=== PATIENT | female | born 1960 | race Caucasian/White ===

== ENCOUNTER → 2020-10-25 15:30 | Outpatient (CLI) | payer OTHER, SELFPAY ==
--- NOTE | ~2020-10-25 | MM_ITS ---
EXAMINATION: MM screening jason BI w judd HISTORY: Screening mammogram TECHNIQUE: Craniocaudal and mediolateral oblique 3-D tomosynthesis images were obtained and synthetic 2-D images were generated. CAD analysis was submitted and interpreted. COMPARISON: No prior mammogram is available for comparison at this institution. BREAST PARENCHYMAL COMPOSITION: There are scattered areas of fibroglandular density. FINDINGS: There is a small circumscribed benign-appearing axillary tail lymph node on the left. There is no evidence of suspicious mass, calcification, or architectural distortion to suggest malignancy in either breast. There has been no suspicious interval change. IMPRESSION: 1. No mammographic evidence of malignancy. 2. Recommend routine screening mammography in one year. BI-RADS Category 2: Benign finding(s). Reviewed, dictated and finalized at location A.
== END ==
PROVIDERS: Visit Provider Physician Assistant Medical
DX: Z12.31 Encounter for screening mammogram for malignant neoplasm of breast (principal)
CPT/HCPCS: 77063; 77067

== ENCOUNTER → 2020-11-17 13:28 | Outpatient (CLI) | payer OTHER, SELFPAY ==
--- NOTE | ~2020-11-17 | DEXA_ITS ---
Bone Density Report Name: Dafne Carter Age: 59 Sex: Female Ethnicity: White Date of : 1960 Indication: postmenopausal; screening for osteoporosis; hysterectomy; Referring Provider: Salvador Huerta Study: Bone densitometry was performed. Exam Date: November 17, 2020 Accession number: [id number] Bone Density: Region BMD T-score Z-score Classification AP Spine (L1-L4) 1.096 0.4 1.9 Normal Femoral Neck (Left) 0.761 -0.8 0.5 Normal Total Hip (Left) 0.973 0.3 1.3 Normal Femoral Neck (Right) 0.785 -0.6 0.7 Normal Total Hip (Right) 0.968 0.2 1.2 Normal Total Hip Mean 0.971 0.3 1.3 Normal World Health Organization criteria for BMD impression classify patients as: Normal (T-score at or above -1.0), Osteopenia (T-score between -1.0 and -2.5), or Osteoporosis (T-score at or below -2.5). 10-year Fracture Risk: FRAX not reported because: All T-scores for Spine Total, Hip Total, Femoral Neck at or above -1.0 Clinical Information Provided by Patient: Has used the following medications: Vitamin D, Calcium, mtv Has the following medical conditions: Hysterectomy Patient maximum height was 62.5 Menopause Age: 53 No regular weight bearing exercise Drinks caffeinated beverages Onset of menses at age 10 Number of children 1 Impression: The patient has normal bone mass. Discussion: BONE DENSITY IS ABOVE THE MINIMUM DESIRABLE LEVEL AT ALL SKELETAL SITES TESTED. This patient?s bone mineral density is above the minimum desirable level (T-score -1.0 or better) at all sites measured. The patient should follow a healthful lifestyle (good nutrition with adequate calcium and vitamin D, and appropriate weight-bearing exercise). Follow-Up: Consider repeating this study in 5 years or sooner if there is some new clinical indication. Reported by: [facility] on 11/17/2020 2:06:00 PM. Reviewed, dictated and finalized at location ACorinna BOWMAN
== END ==
PROVIDERS: PCP Family Medicine; Visit Provider Physician Assistant Medical
DX: Z78.0 Asymptomatic menopausal state (principal)
CPT/HCPCS: 77080

== ENCOUNTER 2020-12-24 01:48 | Day surgery (SDC) | payer OTHER, SELFPAY ==
[2020-12-17 16:29] VITALS: BMI 36.4
[2020-12-24 08:06] VITALS: BP 145/79; PULSE 83; RESP 20; TEMP 36.1; O2SAT 98; BMI 36.1
[2020-12-24] MEDS: LACTATED RINGERS 1,000 ML 150 ML IV CONT (08:17)
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
[2020-12-24 09:07] VITALS: BP 106/71; PULSE 78; RESP 17; O2SAT 98
[2020-12-24 09:17] VITALS: BP 117/74; PULSE 68; RESP 15; O2SAT 98
[2020-12-24 09:27] VITALS: BP 117/71; PULSE 69; RESP 15; O2SAT 99
== END 2020-12-24 09:38 | disposition home or self-care (01) ==
PROVIDERS: PCP Family Medicine; Visit Provider Internal Medicine Gastroenterology
PROC: 0DJD8ZZ Inspection of Lower Intestinal Tract, Via Natural or Artificial Opening Endoscopic (ICD-10-PCS; CPT 45378; principal; 2020-12-24 09:00)
DX: Z12.11 Encounter for screening for malignant neoplasm of colon (principal); D12.2 Benign neoplasm of ascending colon; K57.30 Diverticulosis of large intestine without perforation or abscess without bleeding; K64.8 Other hemorrhoids; G47.33 Obstructive sleep apnea (adult) (pediatric); Z98.84 Bariatric surgery status; E66.9 Obesity, unspecified; Z68.36 Body mass index [BMI] 36.0-36.9, adult
CPT/HCPCS: 45380; 88305; J2704; J7120

== ENCOUNTER → 2021-05-09 10:12 | Outpatient (CLI) | payer OTHER, SELFPAY ==
--- NOTE | ~2021-05-09 | XR_ITS ---
EXAMINATION: XR knee RT min 4V DATE: 05/09/2021 11:00 INDICATION: Right knee pain. TECHNIQUE: 4 views of right knee including standing views were obtained. COMPARISON: None. FINDINGS: Bone alignment is normal. No fracture. There is moderate osteoarthritis of medial compartme nt and mild osteoarthritis of lateral and patellofemoral compartments. No knee joint effusion. IMPRESSION: 1. Moderate right knee osteoarthritis. Reviewed, dictated and finalized at location A. 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
--- NOTE | ~2021-05-09 | XR_ITS ---
EXAMINATION: XR knee LT min 4V DATE: 05/09/2021 11:00 INDICATION: Left knee pain. TECHNIQUE: 4 views of left knee including standing views were obtained. COMPARISON: None. FINDINGS: Bone alignment is normal. No fracture. There is moderate osteoarthritis of medial compartme nt and mild osteoarthritis of lateral and patellofemoral compartments. There is a small knee joint ef fusion. IMPRESSION: 1. Moderate left knee osteoarthritis. 2. Small left knee joint effusion. Reviewed, dictated and finalized at location A. 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
== END ==
PROVIDERS: PCP Family Medicine; Visit Provider Family Medicine
DX: M17.0 Bilateral primary osteoarthritis of knee (principal); M25.462 Effusion, left knee
CPT/HCPCS: 73564

== ENCOUNTER → 2021-12-21 13:15 | Outpatient (CLI) | payer OTHER, SELFPAY ==
--- NOTE | ~2021-12-21 | MM_ITS ---
EXAMINATION: MM screening jason BI w judd HISTORY: Screening TECHNIQUE: Craniocaudal and mediolateral oblique 3-D tomosynthesis images were obtained and synthetic 2-D images were generated. CAD analysis was submitted and interpreted. COMPARISON: 10/25/2020 BREAST PARENCHYMAL COMPOSITION: There are scattered areas of fibroglandular density. FINDINGS: There is no evidence of suspicious mass, calcification, or architectural distortion to sugg est malignancy in either breast. There has been no suspicious interval change. IMPRESSION: 1. No mammographic evidence of malignancy. 2. Recommend routine screening mammography in one year. BI-RADS Category 1: Negative Reviewed, dictated and finalized at location A.
== END ==
PROVIDERS: PCP Family Medicine; Visit Provider Family Medicine
DX: Z12.31 Encounter for screening mammogram for malignant neoplasm of breast (principal)
CPT/HCPCS: 77063; 77067

== ENCOUNTER 2022-09-08 08:54 | Outpatient (CLI) | payer OTHER, SELFPAY ==
[2022-09-11 07:49] LABS: Kit Draw Collected
== END 2022-09-08 08:55 | disposition home or self-care (01) ==
LOC: ANHGOSHLAB 08:55
PROVIDERS: PCP Family Medicine; Visit Provider Family Medicine
DX: Z00.00 Encounter for general adult medical examination without abnormal findings (principal); R53.83 Other fatigue; Z98.84 Bariatric surgery status
CPT/HCPCS: 36415

== ENCOUNTER → 2022-09-08 10:08 | Outpatient (CLI) | payer OTHER, SELFPAY ==
--- NOTE | ~2022-09-08 | XR_ITS ---
EXAMINATION: XR hand RT min 3V DATE: 09/08/2022 10:25 INDICATION: Pain at the right first metacarpal 3 months post fall TECHNIQUE: Posteroanterior, oblique and lateral views of the right hand were obtained. COMPARISON: None. FINDINGS: Bone alignment is normal. No fracture. Polyarticular osteoarthritis, moderate at the first carpometac arpal joint and mild at multiple interphalangeal joints with distal predominance. No erosions to sugg est inflammatory arthritis. Soft tissues are unremarkable. IMPRESSION: 1. Polyarticular osteoarthritis, moderate at the first carpometacarpal joint and mild at multiple int erphalangeal joints. Reviewed, dictated and finalized at location A. IMPRESSION: 1. Polyarticular osteoarthritis, moderate at the first carpometacarpal joint an d mild at multiple interphalangeal joints.
--- NOTE | ~2022-09-08 | XR_ITS ---
EXAMINATION: XR knee LT 3V DATE: 09/08/2022 10:25 INDICATION: Anterior left knee pain. Fall. TECHNIQUE: 3 views of left knee including standing views were obtained. COMPARISON: Left knee radiographs 05/09/2021 FINDINGS: Bone alignment is normal. No fracture. There is moderate osteoarthritis of medial compartme nt and mild osteoarthritis of lateral and patellofemoral compartments. There is an enthesophyte at th e proximal attachment of medial collateral ligament. No knee joint effusion. IMPRESSION: 1. Moderate left knee osteoarthritis. Reviewed, dictated and finalized at location A.
== END ==
PROVIDERS: PCP Family Medicine; Visit Provider Physician Assistant
DX: M17.12 Unilateral primary osteoarthritis, left knee (principal); M19.041 Primary osteoarthritis, right hand
CPT/HCPCS: 73130; 73562

== ENCOUNTER 2023-02-08 13:48 | Outpatient (CLI) | payer OTHER, SELFPAY ==
[2023-02-08 20:26] LABS: Hepatitis C Virus Antibody Negative (Negative)
[2023-02-09 03:19] LABS: Vitamin D 25 Hydroxy 40.1 ng/mL
== END 2023-02-08 13:49 | disposition home or self-care (01) ==
PROVIDERS: PCP Family Medicine; Visit Provider Family Medicine
DX: E55.9 Vitamin D deficiency, unspecified (principal); Z11.59 Encounter for screening for other viral diseases; Z98.84 Bariatric surgery status
CPT/HCPCS: 36415; 82306; 82607; 82728; 86803

== ENCOUNTER → 2023-04-19 13:39 | Outpatient (CLI) | payer OTHER, SELFPAY ==
--- NOTE | ~2023-04-19 | MM_ITS ---
EXAMINATION: MM screening [facility] BI w judd HISTORY: Screening mammogram TECHNIQUE: Craniocaudal and mediolateral oblique 3-D tomosynthesis images were obtained and synthetic 2-D images were generated. CAD analysis was submitted and interpreted. COMPARISON: 12/21/2021, 10/25/2020 BREAST PARENCHYMAL COMPOSITION: There are scattered areas of fibroglandular density. FINDINGS: No suspicious mass, calcification, or architectural distortion are identified in either allie ast to suggest malignancy. There has been no suspicious interval change. IMPRESSION: 1. No mammographic evidence of malignancy. 2. Recommend routine screening mammography in one year. BI-RADS Category 1: Negative Reviewed, dictated and finalized at location A. OGIST
== END ==
PROVIDERS: PCP Family Medicine; Visit Provider Family Medicine
DX: Z12.31 Encounter for screening mammogram for malignant neoplasm of breast (principal)
CPT/HCPCS: 77063; 77067

== ENCOUNTER 2023-07-09 10:22 | Outpatient (CLI) | payer OTHER, SELFPAY ==
--- NOTE | ~2023-07-09 | XR_ITS ---
XR hip LT 2V w AP pelvis DATE: 07/09/2023 10:57 INDICATION: Chronic left hip pain. Fell onto right knee last evening. TECHNIQUE: AP pelvis. AP and lateral views of left hip. COMPARISON: None FINDINGS: No pelvic fracture or bone destruction is detected. The pubic symphysis and sacroiliac join ts are intact. No pelvic fracture or bone destruction. Hip joint spaces appear symmetric and relative ly preserved. No fracture, dislocation, avascular necrosis or bone destruction of the left hip. IMPRESSION: No significant abnormality Reviewed, dictated and finalized at location B. 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
--- NOTE | ~2023-07-09 | XR_ITS ---
EXAM: XR knee RT 3V DATE: 07/09/2023 10:58 HISTORY: fell onto Rt knee last P.M;pain/bruising/swelling anteriorly . COMPARISON: 05/09/2021. FINDINGS: Decreased mineralization. No fracture or dislocation. No lytic or blastic lesion. Tricompa rtmental osteoarthritis, moderate in the medial compartment. Small volume joint fluid. No erosion or periosteal change. Anterior soft tissue swelling. IMPRESSION: No acute osseous finding in the right knee. Reviewed, dictated and finalized at location K. NER
== END 2023-07-09 10:23 ==
PROVIDERS: PCP Physician Assistant; Visit Provider Physician Assistant
DX: M25.552 Pain in left hip (principal); M25.561 Pain in right knee
CPT/HCPCS: 73502; 73562

== ENCOUNTER 2024-01-31 09:00 | Outpatient (CLI) | payer OTHER, SELFPAY ==
[2024-01-31 13:31] LABS: Hepatitis C Virus Antibody Negative (Negative)
[2024-01-31 13:33] LABS: Alanine Aminotransferase 32 U/L (6-35); Albumin Level 4.1 g/dL (3.5-5.1); Anion Gap 8 mmol/L (4-12); Aspartate Amino Transferase 48 U/L (14-36); Bilirubin,Total 0.6 mg/dL (0.2-1.3); Blood Urea Nitrogen 11 mg/dL (7-17); Calcium 9.3 mg/dL (8.4-10.2); Carbon Dioxide 29 mmol/L (22-30); Chloride 102 mmol/L (98-107); Estimated Glomerular Filt Rate > 60; Glucose 83 mg/dL (65-110); Potassium 4.2 mmol/L (3.4-5.0); Sodium 139 mmol/L (137-145); Triglycerides 88 mg/dL (<150)
[2024-01-31 13:34] LABS: Alkaline Phosphatase 102 U/L (38-126); Cholesterol 172 mg/dL (0-200); HDL Direct 63 mg/dL
[2024-01-31 13:45] LABS: LDL Cholesterol Direct 89 mg/dL
[2024-01-31 14:11] LABS: Hemoglobin A1C 5.4 % (<5.7)
== END 2024-01-31 09:01 | disposition home or self-care (01) ==
LOC: ANHGOSHLAB 09:02
PROVIDERS: PCP Family Medicine; Visit Provider Family Medicine
DX: E03.9 Hypothyroidism, unspecified (principal); E55.9 Vitamin D deficiency, unspecified; Z68.36 Body mass index [BMI] 36.0-36.9, adult; Z98.84 Bariatric surgery status; Z11.59 Encounter for screening for other viral diseases
CPT/HCPCS: 36415; 80053; 80061; 82306; 82607; 82728; 83036; 84443; 86803

== ENCOUNTER 2024-02-11 08:32 | Outpatient (CLI) | payer OTHER, SELFPAY ==
[2024-02-11 15:17] LABS: Basophils Absolute Auto 0.1 K/mm3 (0.0-0.1); Basophils Percent Auto 0.7 % (0.2-1.2); Eosinophils Absolute Auto 0.2 K/mm3 (0-0.3); Eosinophils Percent Auto 2.6 % (0-4.4); Hematocrit 42.6 % (37.0-47.0); Hemoglobin 13.4 g/dL (12.0-15.0); Immature Granulocyte Absolute 0.02 K/mm3 (0.00-0.031); Immature Granulocyte Percent A 0.3 % (0-0.5); Lymphocytes Absolute Auto 1.92 K/mm3 (0.9-3.2); Lymphocytes Percent Auto 28.2 % (18.3-44.2); Mean Corpuscular HGB Conc 31.5 g/dl (32-36); Mean Corpuscular Volume 95.3 fl (80-100); Mean Platelet Volume 10.4 fl (7.4-10.4); Monocytes Absolute Auto 0.6 K/mm3 (0.1-0.6); Monocytes Percent Auto 8.8 % (2.6-8.5); Neutrophils Percent Auto 59.4 % (45.5-73.1); Platelet Count Result 324 k/mm3 (150-375); Red Blood Count 4.47 M/mm3 (4.2-5.4); Red Cell Distribution Width 14.1 % (11.5-14.5); White Blood Count 6.8 K/mm3 (4.5-10.0)
== END 2024-02-11 08:33 | disposition home or self-care (01) ==
LOC: ANHGOSHLAB 08:33
PROVIDERS: PCP Family Medicine; Visit Provider Family Medicine
DX: R79.0 Abnormal level of blood mineral (principal)
CPT/HCPCS: 36415; 85025

== ENCOUNTER 2024-02-27 10:58 | Outpatient (CLI) | payer OTHER, SELFPAY | END 2024-02-27 10:59 | disposition home or self-care (01) | LOC: ANHAUDASC 11:00 | PROVIDERS: PCP Family Medicine; Visit Provider Family Medicine | DX: H90.3 Sensorineural hearing loss, bilateral (principal); H93.13 Tinnitus, bilateral | CPT/HCPCS: 92557; 92567 ==

== ENCOUNTER 2024-04-21 10:15 | Outpatient (CLI) | payer OTHER, SELFPAY ==
--- NOTE | ~2024-04-21 | MM_ITS ---
EXAMINATION: MM screening [facility] BI w judd HISTORY: Screening mammogram TECHNIQUE: Craniocaudal and mediolateral oblique 3-D tomosynthesis images were obtained and synthetic 2-D images were generated. CAD analysis was submitted and interpreted. COMPARISON: 04/19/2023, 12/21/2021, 10/25/2020 BREAST PARENCHYMAL COMPOSITION:Not Dense. There are scattered areas of fibroglandular density. FINDINGS: No suspicious mass, calcification, or architectural distortion are identified in either allie ast to suggest malignancy. There has been no suspicious interval change. IMPRESSION: No mammographic evidence of malignancy. Recommend routine screening mammography in one year. BI-RADS Category 1: Negative Reviewed, dictated and finalized at location . 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
== END 2024-04-21 10:16 | disposition home or self-care (01) ==
LOC: MICIMG 10:16
PROVIDERS: PCP Family Medicine; Visit Provider Family Medicine
DX: Z12.31 Encounter for screening mammogram for malignant neoplasm of breast (principal)
CPT/HCPCS: 77063; 77067

== ENCOUNTER 2024-07-31 08:34 | Outpatient (CLI) | payer OTHER, SELFPAY ==
[2024-07-31 15:05] LABS: Basophils Absolute Auto 0.1 K/mm3 (0.0-0.1); Basophils Percent Auto 0.9 % (0.2-1.2); Eosinophils Absolute Auto 0.2 K/mm3 (0-0.3); Eosinophils Percent Auto 2.3 % (0-4.4); Hematocrit 43.8 % (37.0-47.0); Hemoglobin 14.1 g/dL (12.0-15.0); Immature Granulocyte Absolute 0.02 K/mm3 (0.00-0.031); Immature Granulocyte Percent A 0.3 % (0-0.5); Lymphocytes Absolute Auto 2.27 K/mm3 (0.9-3.2); Lymphocytes Percent Auto 34.2 % (18.3-44.2); Mean Corpuscular HGB Conc 32.2 g/dl (32-36); Mean Corpuscular Hemoglobin 30.5 pg (26-34); Mean Corpuscular Volume 94.6 fl (80-100); Mean Platelet Volume 10.5 fl (7.4-10.4); Monocytes Absolute Auto 0.6 K/mm3 (0.1-0.6); Monocytes Percent Auto 8.3 % (2.6-8.5); Neutrophils Absolute Auto 3.6 K/mm3 (1.3-6.7); Platelet Count Result 303 k/mm3 (150-375); Red Blood Count 4.63 M/mm3 (4.2-5.4); Red Cell Distribution Width 13.3 % (11.5-14.5); White Blood Count 6.6 K/mm3 (4.5-10.0)
[2024-07-31 19:14] LABS: Alanine Aminotransferase 34 U/L (6-35); Albumin Level 4.2 g/dL (3.5-5.1); Alkaline Phosphatase 92 U/L (38-126); Anion Gap 9 mmol/L (4-12); Aspartate Amino Transferase 55 U/L (14-36); Bilirubin,Total 0.6 mg/dL (0.2-1.3); Blood Urea Nitrogen 11 mg/dL (7-17); Calcium 9.6 mg/dL (8.4-10.2); Carbon Dioxide 29 mmol/L (22-30); Chloride 104 mmol/L (98-107); Cholesterol 116 mg/dL (0-200); Estimated Glomerular Filt Rate > 60; Glucose 66 mg/dL (65-110); HDL Direct 58 mg/dL; Potassium 5.3 mmol/L (3.4-5.0); Sodium 142 mmol/L (137-145); Triglycerides 64 mg/dL (<150)
[2024-07-31 19:25] LABS: LDL Cholesterol Direct 38 mg/dL
[2024-07-31 22:41] LABS: Vitamin D 25 Hydroxy 37.1 ng/mL
== END 2024-07-31 08:35 | disposition home or self-care (01) ==
LOC: ANHGOSHLAB 08:35
PROVIDERS: PCP Family Medicine; Visit Provider Family Medicine
DX: K76.0 Fatty (change of) liver, not elsewhere classified (principal); K91.2 Postsurgical malabsorption, not elsewhere classified; I10 Essential (primary) hypertension
CPT/HCPCS: 36415; 80053; 80061; 82306; 82607; 82728; 85025

== ENCOUNTER 2024-08-11 09:59 | Outpatient (CLI) | payer OTHER, SELFPAY ==
--- OUTSIDE RECORDS SUMMARY | 2024-08-11 11:41 | XMS_ITS | Continuity of Care Document ---
Author Organization [facility] Address [address] [place] [address] Phone Care Team Providers Care Director Plans Name Role Phone JAYLON DAVE MD Unavailable [...] [facility], [address], [place], [id number], [place] tel:[phone] knee pain equally on both sides (chief complaint) Primary osteoarthriti s of both kneesObesity (BMI 30-39.9) 6 TENZIN IYER. [address] [facility], [address], [place], [place], [id number], [place]. tel:[phone] [facility], [address], [place], [place], [id number], [place] tel:[phone] PHYSICAL THERAPY OFFICE No Information 6 Nell Dykes. [address] [facility], [address], [place], [address], [place]. tel:[phone] Referring Provider: JAYLON Han, [address], [place], [place], . tel:[phone] [facility], [address], [place], , [place] tel:[phone] PHYSICAL THERAPY OFFICE No Information 9-201 6 Camejo DPT Jania. [address], [address], [place], [place], , [place]. tel:[phone] Referring Provider: JAYLON Han, [address], [place], [place], . tel:[phone] [facility], [address], [place], , [place] tel:[phone] PHYSICAL THERAPY OFFICE No Information 2-201 6 Camejo DPT Jania. [address], [address], [place], , [place]. tel:[phone] Referring Provider: JAYLON Han, [address], [place], . tel:[phone] [facility], [address], [place], , [place] tel:[phone] PHYSICAL THERAPY OFFICE No Information -201 6 Camejo DPT Jania. [address], [address], [place], , [place]. tel:[phone] Referring Provider: JAYLON Han, [address], [place], . tel:[phone] [facility], [address], [place], , [place] tel:[phone] PHYSICAL THERAPY OFFICE No Information 1-201 6 Camejo DPT Jania. [address], [address], [place], , [place]. tel:[phone] Referring Provider: JAYLON Han, [address], [place], . tel:[phone] [facility], [address], [place], [place], [id number], [place] tel:[phone] PHYSICAL THERAPY OFFICE No Information 6 Camejo DPT Jania. [address] [facility], [address], [place], , [place]. tel:[phone] Referring Provider: JAYLON Han, [address] [facility] [address], [place], . tel:[phone] [facility], [address], [place], , [place] tel:[phone] PHYSICAL THERAPY OFFICE No Information 6 Camejo DPT Jania. [address] [facility], [address], [place], , [place]. tel:[phone] Referring Provider: JAYLON Han, [address] [facility] [address], [place], . tel:[phone] [facility], [address], [place], [place], [id number], [place] tel:[phone] PHYSICAL THERAPY OFFICE No Information 6 Camejo DPT Jania. [address] [facility], [address], [place], , [place]. tel:[phone] Referring Provider: JAYLON Han, [address] [facility] [address], [place], . tel:[phone] NEW PATIENT OFFICE VISIT- LEVEL 3 [facility], [address], [place], [place], [id number], [place] tel:[phone] [facility] left knee pain (chief complaint) XRAY ORDERPrimary osteoarthriti s of both kneesObesity (BMI 30-39.9) 6 TENZIN IYER. [address] [facility], [address], [place], [place], [id number], [place]. tel:[phone] Referring Provider: JAYLON Han, [address] [facility] [address], [place], [address] . tel:[phone] Family History Family Member Type Diagnosis Age At Onset Mother Problem (finding) depression 20 Father Problem (finding) hypertension 50 Mother Problem (finding) hypertension 50 Mother Problem (finding) Cardiovascular disease 76 Mother Problem (finding) alzheimer's disease 76 Father Problem (finding) cancer of colon 63 Mother Problem (finding) Mental illness 20 Payers Payer name Insurance type Covered republican ID Christos pierce(s) [facility] [id number] Social History Type Description Quantity Date Captured [...] 30-39.9)) ordered Referral Referred To: UMANG BOB [address] [place] [address]
[address] [place], [phone] Ordered: Referrals: UMANG BOB. Evaluate and treat [...] Mental Status Date Cognitive Assessment Orientation - [place] ed to time, place, person, situation. Patient Care Teams Name Effective Dates (start - stop) Status Members No Information
--- OUTSIDE RECORDS SUMMARY | 2024-08-11 11:41 | XMS_ITS | Data Portability ---
Author Organization [facility] [employer] [facility], [facility] Office Address [address] [address] Care Team Providers Care Hydraulic Elevator Constructor Name Role Phone DEMETRIS CHAU Primary Care Provider [phone] JULISA CAVAZOS Bariatric Surgeon [phone] ABBY ESTEVES Anatomic Pathology Manager JULISA CAVAZOS Pattern Painter Assessment No assessment recorded. Plan of Treatment Reminders Order Date Submit Date Provider Last Modified By Organization Details Last Modified Time Details Appointments None recorded. Lab lipid panel, serum 2017 018 [email or web address] Not available 8 08:51:47 CMP, serum or plasma 2017 018 [email or web address] Not available 8 08:59:17 HbA1c (hemoglobin A1c), blood 2017 018 [email or web address] Not available 8 08:51:48 Referral None recorded. Procedures upper endoscopy procedure (EGD) (PROC) 2017 018 [email or web address] Not available 8 08:39:37 Surgeries None recorded. Imaging electrocard iogram 2018 019 [email or web address] In-Office Order, Internal Use Only DO Not Attach Compendium DO Not Attach Compendium, Do Not Delete/merge, [id number] 9 14:06:38 electrocard iogram 2017 018 [email or web address] In-Office Order, Internal Use Only DO Not Attach Compendium DO Not Attach Compendium, Do Not Delete/merge, [id number] 8 15:34:54 electrocard iogram 2017 018 [email or web address] In-Office Order, Internal Use Only DO Not Attach Compendium DO Not Attach Compendium, Do Not Delete/merge, [id number] 8 11:23:58 US, echocardiog surya, transthorac ic, complete, w/ color flow 2017 018 DIANNA In-Office Order, Internal Use Only DO Not Attach Compendium DO Not Attach Compendium, Do Not Delete/merge, [id number] 8 05:01:33 Medication Orders pantoprazol e 40 mg tablet,feli yed release 2017 018 [email or web address] Not available 8 11:28:47 Patient TargetsNo targets recorded. Patient Instructions Encounter Date Encounter Id Patient Instructions Last Modified By Organization Details Last Modified Time 08/10/2017 [id number] When You Want to Lose Weight: Care Instructions jyager Not available 08/10/2017 12:11:23 high cholesterol : care instructions jyager Not available 08/10/2017 12:07:03 sleep apnea: car e instructions jyager Not available 08/10/2017 12:07:03 high blood pressure: care instructions jyager Not available 08/10/2017 12:07:04 learning about high blood pressure jyager Not available 08/10/2017 12:07:04 shortness of breath: care instructions jyager Not available 08/10/2017 12:07:04 08/16/2017 [id number] 1. Continue PPI daily 2. Repeat EGD in 09/2017 to check for resolution of gastric ulcers before proceeding with RYGBP 3. Repeat colonoscopy in 3 yrs esteban Not available 08/16/2017 11:23:00 09/10/2017 [id number] shortness of breath: care instructions jyager Not available 09/10/2017 17:49:50 11/07/2017 [id number] palpitations: care instructions jyager Not available 11/07/2017 11:51:14 When You Want to Lose Weight: Care Instructions jyager Not available 11/07/2017 11:51:14 high cholesterol : care instructions jyager Not available 11/07/2017 11:51:14 sleep apnea: car e instructions jyager Not available 11/07/2017 11:51:14 high blood pressure: care instructions jyager Not available 11/07/2017 11:51:14 learning about high blood pressure jyager Not available 11/07/2017 11:51:14 11/06/2018 [id number] sleep apnea: car e instructions jyager Not available 11/06/2018 11:47:03 When You Want to Lose Weight: Care Instructions jyager Not available 11/06/2018 11:47:03 palpitations: care instructions jyager Not available 11/06/2018 11:47:03 high blood pressure: care instructions jyager Not available 11/06/2018 11:47:03 learning about high blood pressure jyager Not available 11/06/2018 11:47:02 high cholesterol : care instructions jyager Not available 11/06/2018 11:47:03 Reason for Referral None Reported. Results Created Date Observation Date Name Description Value Unit Range Abnormal Flag Note LastModifiedBy Organization Detail LastModifiedTime 07/23/19 18 06/21/2017 imagi ng/di agnos tic resul t No observ ation record ed. [email or web address] Not Available 2017 13:53:14 08/11/19 18 formerly [facility] am No observ ation record ed. In-Office Order Internal Use Only DO Not Attach Compendium DO Not Attach Compendium, Do Not Delete/merge, [id number] 08/10/2017 13:47:50 09/20/19 18 09/13/2017 imagi ng/di agnos tic resul t No observ ation record ed. [email or web address] Not Available 2017 16:18:23 11/08/19 18 formerly [facility] am No observ ation record ed. [email or web address] In-Office Order Internal Use Only DO Not Attach Compendium DO Not Attach Compendium, Do Not Delete/merge, [id number] 11/07/2017 11:54:23 11/08/19 19 11/06/2018 formerly [facility] am No observ ation record ed. [email or web address] In-Office Order Internal Use Only DO Not Attach Compendium DO Not Attach Compendium, Do Not Delete/merge, [id number] 11/07/2018 14:31:29 Result Notes None recorded. Problems Name Problem SNOMED Code Status Onset Date Resolution Date Notes Provider Name and Address Organization Details Recorded Time Body mass index 40+ - severely obese 168350565 Active Alvin seymour, [facility] 6 08:26:38 Vitamin B deficiency 30346864 Active Alvin Lomax null, [facility] 6 08:26:38 Vitamin D deficiency 95636129 Active MD [address], [place], [address], [facility] 6 09:32:47 Cobalamin deficiency 672638759 Active MD [address], [place], [address], [facility] 6 09:32:47 Pre-surger y evaluation Active 2017 Jenae Kwong [facility] 8 11:26:45 Dyspnea 861796404 Active 2017 Kerri White [facility] 8 13:39:05 Screening for malignant neoplasm of colon Active 2013 ENTERED BY: MONA OLMEDO PA-C; SIGNED BY: MONA OLMEDO PA-C Alvin seymour, [facility] 6 08:26:38 Family history of polyp of colon 790072789 Active 2013 ENTERED BY: MONA OLMEDO PA-C; SIGNED BY: MONA OLMEDO PA-C Alvin seymour, [facility] 6 08:26:38 Family history of malignant neoplasm of gastrointe stinal tract 004603164 Active 2013 ENTERED BY: MONA OLMEDO PA-C; SIGNED BY: MONA OLMEDO PA-C Alvin seymour, [facility] 6 08:26:38 Hypertensi ve disorder 14233487 Active MD [address], [place], [address], [facility] 6 09:32:47 Impaired fasting glycemia 999501680 Active MD [address], [place], [address], [facility] 6 09:32:47 Obesity 870637857 Active MD [address], [place], [address], [facility] 6 09:32:47 Knee pain Active Alvin seymour, [facility] 6 08:26:38 Hypertrigl yceridemia 629962383 Active Alvin seymour, [facility] 6 08:26:38 Problem Notes None recorded. Procedures Surgical History Date Name Laterality Status Provider Name and Address Organization Details Recorded Time 11/28/19 18 Gastric bypass for obesity completed Jamee Rojas [facility] 11/06/2018 11:29:18 09/11/19 18 Transthoracic Echocardiogram completed Abby Esteves MD, [facility] [address], [place], [address], [facility] 09/10/2017 17:49:17 05/04/20 15 Date [facility] 14:39:11 09/10/19 15 [facility] 14:39:11 09/03/19 15 Date of [facility] 14:39:11 06/04/18 93 [facility] 09/23/2015 14:39:11 Other completed Maricarmen Winters [facility] 05/08/2017 15:03:19 Imaging Results Imaging Date Name Status LastModified by Organization Details LastModified Time 06/21/2017 imaging/diagnostic result completed [email or web address] Information not available 07/23/2017 13:53:14 08/10/2017 electrocardiogram completed [email or web address] In-Offi ce Order Internal Use Only DO Not Attach Compendium DO Not Attach Compendium, Do Not Delete/merge, [id number] 08/10/2017 13:47:50 09/13/2017 imaging/diagnostic result completed [email or web address] Information not available 09/19/2017 16:18:23 11/07/2017 electrocardiogram completed In-Offi ce Order Internal Use Only DO Not Attach Compendium DO Not Attach Compendium, Do Not Delete/merge, [id number] 11/07/2017 11:54:23 11/06/2018 electrocardiogram completed [email or web address] In-Offi ce Order Internal Use Only DO Not Attach Compendium DO Not Attach Compendium, Do Not Delete/merge, [id number] 11/07/2018 14:31:29 Procedure Notes None recorded. Medical Equipment None Reported. Allergies Allergen ID Allergen Name Allergen Category Reaction Reaction Severity Criticality Documentation Date Start Date Code Code System Note Provider Name and Address Organization Details Recorded Time 20231203 Substance with sulfonami de structure and antibacte rial mechanism of action (substanc e) medicatio n Not available Not available Not available 07/31/20142013 54301 8003 SNOMED SEVER ITY: CRITI VANESSA; Not Available Not Available Not Available 190384 acetamino phen / oxycodone medicatio n itching Not available Not available 09/23/2015 25598 3 RxNorm Not Available Not Available Not Available Medications Name Sig Start Date Stop Date Status Note LastModified by Organization Details LastModified Time carisopro dol 350 mg tablet PRN 2013 active BY: FLAKO CONWAY; SIGNED BY: MONA Dominguez PA-C; GENERIC: CARISOPR ODOL Not Available Not Available Not Available prednison e 10 mg tablet 11/07 completed Not Available Not Available Not Available azithromy arley 250 mg tablet 11/07 completed Not Available Not Available Not Available fluconazo le 150 mg tablet TAKE 1 TABLET BY MOUTH AND REPEAT ONCE IN 7 TO 10 DAYS 11/07 completed Not Available Not Available Not Available metoprolo l succinate ER 50 mg tablet,ex tended release 24 hr TAKE ONE TABLET BY MOUTH ONCE A DAY active not taking Not Available Not Available Not Available oxycodone 5 mg/5 mL oral solution TAKE 5MLS BY MOUTH EVERY 4 HOURS NEEDED FOR PAIN 11/06 completed Pt has not filled RX Not Available Not Available Not Available phentermi ne 37.5 mg tablet Take 1 tablet every day by oral route for 30 days. 05/08 completed Not Available Not Available Not Available acetamino phen 300 mg-codein e 30 mg tablet 05/08 completed Not Available Not Available Not Available acyclovir 400 mg tablet TAKE ONE TABLET BY MOUTH THREE TIMES A DAY FOR 5-7 DAYS FOR OUTBREAK S OF COLD SORES active Not Available Not Available No t Available valacyclo vir 500 mg tablet Take 1 tablet every day by oral route as directed for 90 days. 05/08 completed Not Available Not Available Not Available ciproflox acin 500 mg tablet active Not Available Not Available No t Available aspirin 81 mg tablet,de layed release Take 1 tablet every day by oral route. 08/10 completed Not Available Not Available Not Available tramadol 50 mg tablet 05/08 completed Not Available Not Available Not Available oxycodone -acetamin ophen 5 mg-325 mg tablet 11/07 completed Not Available Not Available Not Available alprazola m 0.5 mg tablet TAKE ONE TABLET A DAY AT BEDTIME WHEN NEEDED active Not Available Not Available No t Available amoxicill in 875 mg tablet 11/07 completed Not Available Not Available Not Available famotidin e 20 mg tablet TAKE ONE TABLET BY MOUTH TWICE A DAY active Not Available Not Available No t Available benzonata te 100 mg capsule active Not Available Not Available Not Available levothyro xine 50 mcg tablet TK 1 T PO QD active Not Available Not Available No t Available pantopraz ole 40 mg tablet,de layed release Take 1 tablet every day by oral route for 30 days. 11/07 completed Not Available Not Available Not Available cyanocoba cas (vit B-12) 1,000 mcg/mL injection solution Inject 1 mL every month by intramus cular route. 05/08 completed Not Available Not Available Not Available oseltamiv ir 75 mg capsule 08/10 completed Not Available Not Available Not Available buspirone 10 mg tablet TAKE ONE TABLET BY MOUTH TWICE A DAY NEEDED FOR ANXIETY active Not Available Not Available No t Available metoprolo l tartrate 50 mg tablet TAKE ONE TABLET BY MOUTH TWICE A DAY 11/06 completed Not Available Not Available Not Available ergocalci ferol (vitamin D2) 1,250 mcg (50,000 unit) capsule TAKE 1 CAPSULE EVERY WEEK 05/08 completed Not Available Not Available Not Available famotidin e 40 mg/5 mL (8 mg/mL) oral suspensio n TAKE 2 AND 1/2 ML ( 20 MG) BY MOUY TWO TIMES A DAY 11/06 completed Not Available Not Available Not Available cefuroxim e axetil 500 mg tablet TAKE ONE TABLET BY MOUTH TWICE A DAY 11/07 completed Not Available Not Available Not Available ketoconaz ole 2 % topical cream 05/08 completed Not Available Not Available Not Available cefdinir 300 mg capsule active Not Available Not Available Not Available naproxen 500 mg tablet 05/08 completed Not Available Not Available Not Available amoxicill in 875 mg-potass ium clavulana te 125 mg tablet TAKE ONE TABLET BY MOUTH TWICE A DAY 11/06 completed Not Available Not Available Not Available nabumeton e 500 mg tablet 05/08 completed Not Available Not Available Not Available enoxapari n 60 mg/0.6 mL subcutane ous syringe 05/08 completed Not Available Not Available Not Available enoxapari n 40 mg/0.4 mL subcutane ous syringe 05/08 completed Not Available Not Available Not Available duloxetin e 60 mg capsule,d elayed release TK ONE C PO D active Not Available Not Available No t Available eszopiclo ne 1 mg tablet 05/08 completed Not Available Not Available Not Available Nyamyc 100,000 unit/gram topical powder USE POWDER OVER THE RASH AREA 3-4 TIMES A DAY active PRN Not Available Not Available No t Available ibuprofen 1 A DAY 05/08 completed BY: FLAKO CONWAY; SIGNED BY: MONA Dominguez PA-C Not Available Not Available Not Available THSC Levothyro xine Sodium 1 A DAY 05/08 completed BY: FLAKO CONWAY; SIGNED BY: MONA Dominguez PA-C Not Available Not Available Not Available TriLyte USE DOCTOR DIRECTED . PHARMACI ST: PLEASE DISPENSE WITH ONE BOTTLE OF MAGNESIU M CITRATE 07/12 completed BY: MONA Dominguez PA-C; SIGNED BY: MONA Dominguez PA-C; PHARMACY : [id number]* [address] [place] [address] PH: FAX: ;DATE: 014; GENERIC: PEG 3350-KCL -NA BICARB-N ACL Not Available Not Available Not Available Cymbalta 1 A DAY 05/08 completed BY: FLAKO CONWAY; SIGNED BY: MONA Dominguez PA-C; GENERIC: DULOXETI NE HCL Not Available Not Available Not Available hydrochlo rothiazid e 12.5 mg tablet TAKE ONE TABLET(S ) ONCE A DAY 11/06 completed Not Available Not Available Not Available Novofine 32 32 gauge x 1/4 needle USE DIRECTED 05/08 completed Not Available Not Available Not Available Suprep Bowel Prep Kit 17.5 gram-3.13 gram-1.6 gram oral solution DIRECTED 08/16 completed Not Available Not Available Not Available Unifine Pentips Plus 31 gauge x 5/16 needle USE 1 PEN TIP PER INJECTIO N 05/08 completed Not Available Not Available Not Available Unifine Pentips Plus 31 gauge x 3/16 needle USE ONE PEN TIP FOR INJECTIO N 05/08 completed Not Available Not Available Not Available Unifine Pentips 32 gauge x 5/32 needle USE INSTRUCT ED BY DOCTOR 05/08 completed Not Available Not Available Not Available Saxenda 3 mg/0.5 mL (18 mg/3 mL) subcutane ous pen injector INJECT 3MG QD BY SUBCUTAN EOUS ROUTE 05/08 completed Not Available Not Available Not Available Fluvirin 1527-2726 45 mcg (15 mcg x 3)/0.5 mL intramusc ular suspensio n VACCINAT ION ADMINIST ERED BY PHARMACI ST 05/08 completed Not Available Not Available Not Available Vitals Date Recorded Body height Body mass index (BMI) Body weight Heart rate Systolic blood pressure Diastolic blood pressure Provider Name and Address Organization Details Last Updated DateTime 8 159.004 cm 48.3 kg/m2 961832. 35 g 88 /min 126 mm[Hg] 80 mm[Hg] Jenae Kwong [facility] 8 11:35:08 Date Recorded Body height Body mass index (BMI) Body weight Heart rate Systolic blood pressure Diastolic blood pressure Provider Name and Address Organization Details Last Updated DateTime 8 159.004 cm 48.3 kg/m2 630494. 07 g 91 /min 127 mm[Hg] 78 mm[Hg] Maricarmen Winters [facility] 8 10:22:33 Date Recorded Body height Provider Name an d Address Organization Details Last Updated DateTime 09/10/2017 159.004 cm Kerri White [facility] 0 09/10/2017 13:39:07 Date Recorded Body height Body mass index (BMI) Body weight Heart rate Systolic blood pressure Diastolic blood pressure Provider Name and Address Organization Details Last Updated DateTime 8 159.004 cm 47.7 kg/m2 719190. 57 g 90 /min 100 mm[Hg] 70 mm[Hg] Carlee Tobias [facility] 8 11:32:04 Date Recorded Body height Body mass index (BMI) Body weight Provider Name and Address Organization Details Last Updated DateTime 11/06/2018 159.004 cm 31.4 kg/m2 06955.66 g Jamee Chrissews [facility] 11/06/2018 11:23:34 Date Recorded Systolic blood pressure Diastolic blood pressure Provider Name and Address Organization Details Last Updated DateTime 11/06/2018 114 mm[Hg] 76 mm[Hg] Abby Esteves MD, FACC [address], [place], [address], [facility] 11/06/2018 11:44:27 Social History Question Answer Notes LastModified by Organizat ion Details LastModified Time Tobacco Smoking Status Never Smoker Maria Isabel Jenkins, [facility] 09/23/2015 14:40:09 Do You Have An Advance Directive? No Information not available 08/10/2017 What Is Your Level Of Caffeine Consumption? Moderate Information not available 09/23/2015 Which Illicit Or Recreational Drugs Have You Used? No Information not available 08/10/2017 Prescription Medication Abuse No Information not available 08/10/2017 Are You Working Yes Informati on not available 08/10/2017 What Is The Highest Level Of EDUCATION You Have Completed? Bachelor Information not available 09/23/2015 On Average, How Many Days Per Week Do You Engage In Moderate To Strenuous EXERCISE (like Walking Fast, Running, Jogging, Dancing, Swimming, Biking, Or Other Activities That Cause A Light Or Heavy Sweat)? 0 Information not available 09/23/2015 On Those Days, How Many Minutes, On Average, Do You Engage In EXERCISE At This Level? 0 Information not available 08/10/2017 How Many Standard DRINKS Containing Alcohol Do You Have On A Typical Day? 1 Or 2 Information not available 08/10/2017 How Often Do You Have A DRINK Containing ALCOHOL? Monthly Or Less Information not available 09/23/2015 How Often Do You Have Six Or More DRINKS On One Occasion? Never Information not available 08/10/2017 Marital Status [email or web address] Info rmation not available 09/23/2015 What Was The Date Of Your Most Recent Tobacco Screening? 11/06/2018 Information n ot available 12/27/2018 How Many Children Do You Have? 1 jyager Information not available 08/10/2017 How Much Tobacco Do You Smoke? No Information not available 08/10/2017 Sex: Unknown Functional Status None recorded. Mental Status None recorded. Family History Relationship Description Onset Age of this Age Resolved Age Notes LastModified by Organization Details LastModified Time Mother Depressive disorder [email or web address] Not available 11/07 11:21:36 Father Malignant neoplastic disease [email or web address] Not available 11/07 11:21:36 Father Heart disease 74 of [place], had histor y of CHF and cardio myopat hy Not available 11/07/2017 11:21:36 Father Hypertensive disorder [email or web address] Not available 11/07 11:21:36 Father Malignant tumor of colon [email or web address] Not available 11/07 11:21:36 Paternal Grandfather Alcoholism Not available 11/07/2017 11:21:36 Paternal Grandfather Malignant neoplastic disease narvin Not available 2015 08:28:46 Paternal Grandmother Malignant neoplastic disease narvin Not available 2015 08:28:46 Maternal Grandmother Cerebrovascu lar accident [email or web address] Not available 11:21:36 Medical History Condition Response Hypertension (high blood pressure) Y Hypercholesterolemia (high cholesterol) Y Heart Attack (SD) N Hepatic / Liver Disease N Past Medical History as per Problem List Y Reflux/GERD (heartburn) N Heart Murmur N Gynecological History Statement/Question Response If Post Menopausal, Age at Menopause 53 Date of Last Mammogram 05/04/2015 Date of LMP 09/09/2014 Normal Menses N Menses Monthly N Date of Last Pap Smear 09/02/2014 Age at Menarche 10 Current Control Method Hysterectom y LMP Definite Obstetrics History GPAL:G 1 P 1 0 0 1 Type Value Full Term 1 Living 1 Total 1 Past Encounters Encounter ID Performer Location Encounter Start Date Encounter Closed Date Diagnosis/Indication Diagnosis SNOMED-CT Code Diagnosis ICD10 Code Diagnosis Note [id number] [facility] [address] [facility] [place] [address] 07/11/2013 00:00:00 [id number] Lo Fulton [facility] [address] [place] [address] 09/23/2015 14:03:41 09/23/2015 15:20:44 Hypertensive disorder 72883582 I10 Impaired f asting glycemia 915115665 R73.01 Obesity 509447017 E66.01 Knee pain 66900130 M25.5 62 [id number] Rakesh Valdez MD [facility] [address] [place] [address] 09/30/2015 14:09:15 09/30/2015 15:04:40 Obesity 741235708 E66.01 Hypertensive disorder 38 653060 I10 Hypertriglyceridemia 302 889048 E78.1 BOWMAN will start Wt loss program [id number] Rakesh Valdez MD [facility] [address] [place] [address] 03/23/2016 15:09:23 03/23/2016 16:04:01 Body mass index 40+ - severely obese 872359724 Z68.43 Vitamin B deficiency 479 71052 E53.8 Hypertriglyceridemia 302 730325 E78.1 BOWMAN will start Wt loss program make fasting appointmen t Hypertensive disorder 38 323318 I10 metoprolol and HCTZ [id number] Rakesh Valdez MD [facility] [address] [place] [address] 04/11/2016 07:54:09 04/11/2016 09:09:32 Impaired fasting glycemia 292037822 R73.01 Hypertensive disorder 38 636354 I10 metoprolol and HCTZ Obesity 063131995 E66.01 Family his tory of combined hyperlipidemia 0651436890 9100 Z83.49 Vitamin D deficiency 347 15767 E55.9 Cobalamin deficiency 190 975140 E53.8 [id number] Rakesh Valdez MD [facility] [address] [place] [address] 05/10/2016 10:09:06 05/10/2016 11:29:46 Body mass index 40+ - severely obese 905206711 Z68.43 losing weight on current regimen without side effects Acquired hypothyroidism 531993081 E03.9 high TSH, low T4, no thyroid peroxidase antibodies . plan to start low dose replacemen t therapy and obtain thyroid U/S for further evaluation . 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 Acquired hypothyroidism 572666086 E03.8 [id number] Rakesh Valdez MD [facility] [address] [place] [address] 07/19/2016 09:16:22 07/19/2016 10:04:06 Body mass index 40+ - severely obese 139726435 Z68.43 losing weight on current regimen without side effects Cobalamin deficiency 190 517568 E53.8 [id number] Rakesh Valdez MD [facility] [address] [place] [address] 09/06/2016 11:32:20 09/06/2016 12:33:43 Obesity 941308190 E66.01 Vitamin B deficiency 479 08750 E53.8 Vitamin D deficiency 347 46526 E55.9 Impaired f asting glycemia 322479947 R73.01 Hypertriglyceridemia 302 019860 E78.2 BOWMAN will start Wt loss program make fasting appointmen t Acquired hypothyroidism 735445448 E03.8 high TSH, low T4, no thyroid peroxidase antibodies . plan to start low dose replacemen t therapy and obtain thyroid U/S for further evaluation . [id number] Lexis Rivers PMG_GMA_F [facility]* [address] [facility] [address] [place] [address] 05/08/2017 14:40:40 05/08/2017 15:39:24 Pre-surgery evaluation [id number] Z01.818 Family his tory of cancer of colon [id number] Z80.0 [id number] Abby Esteves MD, [facility] PMG_CCA_F [facility] [address] [facility] [place] [address] 08/10/2017 11:18:36 08/10/2017 12:14:18 Preoperative cardiovascular examination [id number] Z01.810 Low to intermedia te risk individual for intermedia te risk surgery. Normal ECG. No chest pain. Exercise tolerance >4 METS. May proceed with bariatric surgery from cardiac point of view. Timing of surgery TBD depending upon her success with her current weight loss program. Dyspnea [id number] R06.02 Short of breath with stairs. At least in part from deconditio poli. Will plan for echocardio gram to evaluate LV function and pulmonary pressures. Essential hypertension 23456665 I10 Well controlled on current regimen. Hyperlipidemia 68742925 E78.5 Will check labs. Sleep apnea 09884713 G47 .30 Doing well with CPAP. Diabetes inder lisaitus screening [id number] Z13.1 Will check HbA1c. Morbid obesity 118249857 E66.01 Losing weight with [employer]. [id number] Irving Valdivia MD PMG_GMA_F [facility]* [address] [facility] [place] [address] 08/16/2017 09:57:46 08/16/2017 10:39:36 Gastric ulcer 801590721 K25.9 Family his tory of cancer of colon [id number] Z80.0 History of polyp of colon 318182250 Z86.010 [id number] Abby Esteves MD, [facility] [address] [facility] [address] [place] [address] 09/10/2017 11:07:00 09/11/2017 08:26:16 Dyspnea 861342601 R06.02 Short of breath with stairs. At least in part from [facility]. Will plan for echocardio gram to evaluate LV function and pulmonary pressures. [id number] Abby Esteves MD, [facility] [address] [facility] [address] [place] [address] 11/07/2017 11:18:58 11/07/2017 12:01:46 Dyspnea 576320759 R06.02 Normal echocardio gram. Likely from [facility]. Preoperati ve cardiovascular examination 675202004 Z01.810 Low to intermedia te risk individual for intermedia te risk surgery. No chest pain. Normal ECG today. Exercise tolerance >4 METS. May proceed with bariatric surgery from cardiac point of view. Essential hypertension 52765991 I10 BP remains well controlled . Hyperlipidemia 11042265 E78.[address] Chau. Palpitations 95143315 R0 0.2 Well controlled with metoprolol . Sleep apnea 98544974 G47 .30 Using CPAP regularly. Morbid obesity 880712174 E66.01 Planning for bariatric surgery. [id number] Abby Esteves MD, [facility] PMG_CCA_F [facility] [address] [place] [address] 11/06/2018 11:18:48 11/06/2018 11:48:44 Essential hypertension 20877195 I10 BP well controlled without medication . Continue healthy lifestyle. We can forward records to her new physicians in [place]. Encourage regular exercise. Hyperlipidemia 46962270 E78.[address] Chau. Palpitations 12022787 R0 0.2 Rare symptoms. Can use metoprolol as needed. We discussed that she should start with 25mg daily as needed. Sleep apnea 75296642 G47 .30 Using CPAP regularly. Obesity 763214125 E66.9 Continue current medication s. Health Concerns Section Related Observation LastModified by Organization Detai ls LastModified Time None Recorded Concern Status LastModified by Organization Details LastModified Time None Recorded Advance Directives Directive N: Payers Encounter Date Sequence Insurance Name Policy Number Policy Fox Covered Member ID Fox Member ID Guarantor Name 08/10/2017 1 [facility] [id number] Ubaldo Carter [id number] PatriciaChantal Carter 08/16/2017 1 [facility] [id number] Ubaldo Carter [id number] Dafne Carter 09/10/2017 1 [facility] [id number] Ubaldo Carter [id number] PatriciaChantal Carter 11/07/2017 1 [facility] [id number] Ubaldo Carter [id number] PatriciaChantal Carter 11/06/2018 1 [facility] [id number] Ubaldo Olga Carter [id number] PatriciaChantal Carter Notes Date Note Type Note Provider Name and Address Organization Details Recorded Time 8 text/html HyperlipidemiaReported bypatient.Notes:She has a history of mildly elevated lipids. Labs 06/2016 - TC 200, TG 155, HDL 46, LDL 123. HypertensionReported bypatient.Notes:She has been taking antihypertensives for one year. BP usually well controlled when checked. She does not do any exercise. Walking limited by knee pain. No chest pain. She feels short of breath with walking, worse with stairs. She is out of shape. She has sleep apnea and uses CPAP regularly. No orthopnea or PND. Some edema in her feet. She enjoys salt. She can walk up stairs carrying groceries without chest pain, but she does feel short of breath.PalpitationsReported bypatient.Notes:History of tachycardia and she was started on beta blockers. The patient is a 56 year old woman referred for a new patient consultation by Dr. Cavazos for a preoperative consultation. She is planning to have gastric bypass surgery at the end of November. She started dieting with [employer] a few weeks ago and has lost 10 pounds. Abby Esteves MD, [facility] [address], [place], [address], [facility] 08/10/2017 12:11:38 8 text/html 56 y/o female presents for f/u and review results of EGD/colonoscopy. She plans to have RYGBP in ~ 11/[address] Cavazos. She has a family history of colon cancer. Since procedures, she has been doing well. Denies abdominal, diarrhea, constipation, n/v, GERD. Has been taking PPI daily for benign gastric ulers. EGD 06/2017, Dr. Robles: gastric ulcers. path neg for H. pylori and malignancy. Colonoscopy 06/2017, Dr. Robles: 10-20 mm tubular adenoma removed, found in the descending colon. Rylie Del Rosario, [facility] [address], [place], [address], [facility] 08/16/2017 11:23:46 8 text/html HyperlipidemiaReported bypatient.Notes:Labs 06/2016 - TC 200, TG 155, HDL 46, LDL 123. She last ten pounds with [employer], she had been cheating on the diet.HypertensionReported bypatient.Notes:BP has been well controlled. She has sleep apnea and uses CPAP regularly. Not having any chest pain or shortness of breath with walking or with stairs. She feels better as she loses weight. Planning for gastric bypass surgery 11/27/[address] Cavazos.PalpitationsReporte d bypatient.Notes:Symptoms well controlled overall with metoprolol. Established patient follow up visit for palpitations. Abby Esteves MD, [facility] [address], [place], [address], [facility] 11/07/2017 11:51:20 9 text/html HyperlipidemiaReported bypatient.Notes:Labs 06/2016 - TC 200, TG 155, HDL 46, LDL 123. She had labs last month with Dr. Chau.PalpitationsReported bypatient.Notes:No longer taking metoprolol. Occasional palpitations.Test HypertensionReported bypatient.Notes:No longer on medication since she lost weight. Not checking BP at home. She has sleep apnea and uses CPAP regularly. She low 110 pounds after gastric bypass surgery. She is active on her feet all day, walks about five miles during a typical day. Established patient follow up visit for palpitations. She lost 110 pounds after gastric bypass surgery. Abby Esteves MD, [facility] [address], [place], [address], [facility] 11/06/2018 11:47:08 OBGyn Episode No OBEpisode recorded.
--- OUTSIDE RECORDS SUMMARY | 2024-08-11 11:41 | XMS_ITS | Referral Summary ---
Author Organization [facility] at the [facility] Address [address] [place] [address] Care Team Providers Care Computing Systems Mechanic Name Role Phone Melisa Cannon MD Primary Care Provider + Allergies No known active allergies Social History Tobacco Use Types Packs/Day Years Used Date Smoking Tobacco: Never Assessed Personal Safety Answer Date Recorded Getting School Help Needed Not on file 02/13 Comments Unknown Sex and Gender Information Value Date Recorded Sex Assigned at Not on file Legal Sex Female 3:30 PM CDT Gender Identity Not on file Sexual Orientation Not on file Plan of Treatment Not on file Insurance [address] [place] [id number] [facility] CHOICE PLUS [facility] H[facility]/PPO Address: [facility] [id number] [place] [address] Care Teams Computing Systems Mechanic Relationship Specialty Start Date End Date Melisa Cannon MD [address] [place] [address] [place] [address] PCP - General Family Medicine 02/15/24
--- OUTSIDE RECORDS SUMMARY | 2024-08-11 11:41 | XMS_ITS | Clinical Summary ---
Author Organization [facility] at the [facility] Address [address] [place] [address] Care Team Providers Care Bootmaker Hand Name Role Phone Melisa Cannon MD Primary [...] Orientation Not on file Plan of Treatment Health Maintenance Due Date Last Done Comments Breast Cancer Screening-Mammogram 1959 Cervical Cancer Screening 1959 Colon Cancer Screening-Colonoscopy 1959 Depression Screening 1959 Hepatitis C Screening 1959 DTaP/Tdap/Td Vaccine (1 - Tdap) 12/06/1970 Hepatitis B Screening 12/06/1977 Regular Well Visit/Exam 18-64 12/06/1977 Zoster Vaccine (1 of 2) 12/06/2009 Influenza Vaccine (#1) 2024 Pneumococcal vaccine <65 Aged Out No longer eligible based on patient's age to complete this topic Insurance [address] [place] [id number] [facility] CHOICE PLUS Member Subscriber Plan / Payer (Ef fective 2023-Present) Name:Dafne Carter Relation to Subscriber:Self Name:Dafne Carter Payer ID:[id number] (NAIC) Type:[facility] Address: [place] [id number] Care Teams Bootmaker Hand Relationship Specialty Start Date End Date Melisa Cannon MD [address] [place] [address] [address] PCP - General Family Medicine 02/15/24
--- OUTSIDE RECORDS SUMMARY | 2024-08-11 11:41 | XMS_ITS | Continuity of Care Document ---
Author Organization [facility] Address [address], [address] [place] [address] Phone Care Team Providers Care Cook Vegetable Name Role Phone Unavailable Unavailable Unavailable Allergies, Adverse Reactions, Alerts Substance Reaction Status Criticality OXYCODONE HCL bumps on back Active No Informatio n acetaminophen bumps on back Active No Informatio n Sulfa (Sulfonamide Antibiotics) hives/rash Active No Information Medications Medication Instructions Dosage Effective Dates (start - stop) Status Comments duloxetine 60 mg capsule,delayed release take 1 capsule by oral route every day 60 MG - Active carisoprodol 250 mg tablet take 1 tablet by oral route 3 times every day before meals and at bedtime 250 MG - Active Procedures Procedure Date CYTOPATH, C/V, THIN LAYER PREV VISIT, EST, AGE 40-64 OFFICE/OUTPATIENT VISIT, EST OFFICE/OUTPATIENT VISIT, EST POST OP S/P OB OFFICE/OUTPATIENT VISIT, EST OFFICE/OUTPATIENT VISIT, EST BIOPSY OF UTERUS LINING OFFICE CONSULTATION Advance Directives Directive Yes / No Effective Date File Name No Information Encounters Encounter Description Practice Location Reason(s) For Visit Diagnoses Date Provider [facility], [address] , [address], [place], [id number] , [place] tel:[phone] [address] [place] [facility] No Information 8 No Information PREV VISIT, EST, AGE 40-64 [facility], [address] , [address], [place], [id number] , [place] tel:[phone] [place] [facility] Annual Exam (chief complaint) Encntr for leasing coordinator exam (general) (routine) w/o abn findings 8 No Information OFFICE/OUTPATI ENT VISIT, [facility], [address] , [address], [place], [id number] , [place] tel:[phone] [place] [facility] abnormal bleeding (chief complaint) Excessive or frequent menstruation 5 No Information OFFICE/OUTPATI ENT VISIT, [facility], [address] , [address], [place], [id number] , [place] tel:[phone] [place] [facility] abnormal bleeding (chief complaint) Dysfunctional uterine bleeding 4 No Information [facility], [address], [place], [id number] , [place] tel:[phone] [place] [facility] Surgery Follow-Up (chief complaint) Excessive or frequent menstruation 4 No Information OFFICE/OUTPATI ENT VISIT, [facility], [address] , [address], [place], [id number] , [place] tel:[phone] [facility] [place] [facility] abnormal bleeding (chief complaint) Excessive or frequent menstruationPain in limb 4 Mercedes Molina. [address] [facility], [address], [place], [place], [id number], [place]. tel:[phone] OFFICE/OUTPATI ENT VISIT, [facility], [address] , [address], [place], [id number] , [place] tel: [phone] CLOSED [address] [place] [facility] Closed vaginal bleeding (chief complaint) Excessive or frequent menstruationSubserous leiomyoma of uterus 4 [address]. [address] [facility], [address], [place], [place], [id number], [place]. tel:[phone] OFFICE CONSULTATION [facility], [address] , [address], [place], [id number] , [place] tel:[phone] [address] [place] [facility] Adenomyosis (chief complaint) Endometriosis of uterusExcessive or frequent menstruation 0 4 No Information Family History Family Member Type Diagnosis Age At Onset Father Problem (finding) coronary arterioscleros is 74 Paternal grandfather Problem (finding) malignant neopl asm of male breast Mother Problem (finding) hypertension Paternal aunt Problem (finding) breast cancer Father Problem (finding) hypertension Father Problem (finding) cancer of colon 63 Payers Payer name Insurance type Covered alliance party ID Authoriza tion(s) [facility] [id number] Social History Type Description Quantity Date Captured Comments Sex Female Smoking Status No Information Chief Complaint And Reason For Visit No Information History Of Present Illness Encounter Date Complaint History Of Prese nt Illness Annual Exam Currently pregna nt: no. : 1. Parity: Term: 1. Livin. The patient states she uses HYSTERECTOMY for control. Last LMP was 06/04/2013. Positive for: breast self exam.Postmenopausal: Age: 52, Type: Novasure. Menopausal symptoms negative for: vaginal dryness. Menopausal symptoms positive for: hot flashes, insomnia and night sweats. She does not take calcium. She does not take Vitamin D. She does not take multivitamins. The patient does not use tobacco. She does drink alcohol. Additional information: HOW OFTEN SHOULD SHE KEEP COMING FOR PELVIC EXAMS...MLM. 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 The procedure was difficult due to the size of her uterine cavity. She became amenorrheic after the procedure for 1 year. Her bx and path have all been benign. Recently she began bleeding heavily again. She no longer is being anticoagulated. abnormal bleeding Her symptoms b elías 5 days ago. Presently the patient is experiencing menorrhagia. The patient is postmenopausal. The patient is not currently . Relevant factors include passing clots. Additional information: s/p Endometrial Ablation. Heavy bleedinghad some dizziness and pt is becoming winded when walking--tg. abnormal bleeding The patient is postmenopausal. The patient is not currently . Additional information: Bleeding started 03/30-04/21. Flow is describe as heavy...kr. abnormal bleeding (comments) The pt was on Coumadin when she began to bleed. This was discontinued due to the bleeding by PMD. Her path at time of ablation was benign in September,. Surgery Follow-Up Additional inf ormation: 10/14/13 D&CRashawn. having some pink spotting--tg. abnormal bleeding Additional inf ormation: Pt was in the hospital overnight and given a transfusion..kr. abnormal bleeding (comments) pt had transfusions x 2 and completed with a Hg = 8.0; the pt c/o severe R calf pain. She denies swelling or redness of that extremity. vaginal bleeding (comments) She has generally been pleased with Dr. Hu himself but was a bit displeased with a recent telephone conversation relating to her ER visit on Sunday. vaginal bleeding Onset: 2 months ago. Severity level is pad(s). Location/source of the bleeding is vaginal. The patient describes it as clotting. Frequency: metrorrhagia. The problem is no change. Context: meaghan-menopausal. Denies aggravating factors. Denies relieving factors. Associated symptoms include fatigue and nausea. Pertinent negatives include abdominal pain, back pain, bloating, bruising, constipation, cramps, diarrhea, dizziness, dyspnea, headache, pallor, pelvic pain and swelling. Additional information: Steven was seen in [facility] on Sunday and was told to f/u with me for a 2nd opinion regarding pending treatment planned. She is here with her to discuss pending surgery and diagnoses.. Adenomyosis per u/s done 06/06 dx of Adenomyosis w/ fibroids--tg Adenomyosis (comments) see sono report. endometrial thickness exceeds 20mm; adenomyosis and subserosal fibroid. normal ovaries. Pt has had intermittent heavy menses 2 weeks apart. Instructions Date Instruction Additional Infor rich The patient was give n an Rx for her yearly mammogram. She was encouraged to perform regular self breast exams. Adequate diet and exercise suggestions were shared with the patient. A diet rich in fresh fruits and vegetables and adequate calcium and vitamin D was recommended. Gynecologic meds prescribed through our office were refilled. Related to Encntr for leasing coordinator exam (general) (routine) w/o abn findings Pt will consult with leasing coordinator onc to discuss TLH; CBC was drawn and she was placed on Prometrium 400mg qhs to reduce her menses until surgery. SHe was given Dr. Ignacio's office number for consultation. I have left a message for him to call me to see if I can get her in sooner. Related to Excessive or frequent menstruation check LH, FSH, estra diol and CBC to assess whether she is menopausal. I will call her with the results. She had insomnia on Aygestin in the past, but will use this again if she has another bleeding episode in the forthcoming weeks. Related to Dysfunctional uterine bleeding Assessments Type Assessment Date No Information
[2024-08-11 14:44] LABS: Potassium 4.9 mmol/L (3.4-5.0)
== END 2024-08-11 10:00 | disposition home or self-care (01) ==
LOC: ANHGOSHLAB 10:02
PROVIDERS: PCP Family Medicine; Visit Provider Student in an Organized Health Care Education/Training Program
DX: E87.5 Hyperkalemia (principal)
CPT/HCPCS: 36415; 84132

== ENCOUNTER 2024-10-07 08:34 | Outpatient (CLI) | payer OTHER, SELFPAY ==
--- OUTSIDE RECORDS SUMMARY | 2024-10-07 08:52 | XMS_ITS | Data Portability ---
Author Organization [facility], [facility] Office Address [address] [address] Care Team Providers Care J2Ee Developer Name Role Phone DEMETRIS CHAU Primary Care Provider JULISA CAVAZOS Bariatric Surgeon ABBY ESTEVES Cartridge Assembler JULISA CAVAZOS Train Inspector Assessment No assessment recorded. Plan of Treatment Reminders Order Date Submit Date Provider Last Modified By Organization Details Last Modified Time Details Appointments None recorded. Lab lipid panel, serum 2017 018 [email or web address] Not available 8 08:51:47 CMP, serum or plasma 2017 018 [email or web address] Not available 8 08:59:17 HbA1c (hemoglobin A1c), blood 2017 018 [email or web address] Not available 8 08:51:48 Referral None recorded. Procedures upper endoscopy procedure (EGD) (PROC) 2017 018 [email or web address] Not available 8 08:39:37 Surgeries None recorded. Imaging electrocard iogram 2018 019 [email or web address] In-Office Order, Internal Use Only DO Not Attach Compendium DO Not Attach Compendium, Do Not Delete/merge, [id number] 9 14:06:38 electrocard iogram 2017 018 [email or web address] In-Office Order, Internal Use Only DO Not Attach Compendium DO Not Attach Compendium, Do Not Delete/merge, [id number] 8 15:34:54 electrocard iogram 2017 018 [email or web address] In-Office Order, Internal Use Only DO Not Attach Compendium DO Not Attach Compendium, Do Not Delete/merge, [id number] 8 11:23:58 US, echocardiog surya, transthorac ic, complete, w/ color flow 2017 018 DIANNA In-Office Order, Internal Use Only DO Not Attach Compendium DO Not Attach Compendium, Do Not Delete/merge, [id number] 8 05:01:33 Medication Orders pantoprazol e 40 mg tablet,feli yed release 2017 018 [email or web address] Not available 8 11:28:47 Patient TargetsNo targets recorded. Patient Instructions Encounter Date Encounter Id Patient Instructions Last Modified By Organization Details Last Modified Time 08/10/2017 [id number] When You Want to Lose Weight: Care [...] instructions jyager Not available 08/10/2017 12:07:04 08/16/2017 [id number] 1. Continue PPI daily 2. Repeat EGD in 09/2017 to check for resolution of gastric ulcers before proceeding with RYGBP 3. Repeat colonoscopy in 3 yrs esteban Not available 08/16/2017 11:23:00 09/10/2017 [id number] shortness of breath: care instructions jyager Not available 09/10/2017 17:49:50 11/07/2017 [id number] palpitations: care instructions jyager Not available 11/07/2017 11:51:14 When You Want to Lose Weight: Care Instructions jyager Not available 11/07/2017 11:51:14 high cholesterol : care instructions jyager Not available 11/07/2017 11:51:14 sleep apnea: car e instructions jyager Not available 11/07/2017 11:51:14 high blood pressure: care instructions jyager Not available 11/07/2017 11:51:14 learning about high blood pressure jyager Not available 11/07/2017 11:51:14 11/06/2018 [id number] sleep apnea: car e instructions jyager Not [...] [email or web address] Not Available 2017 13:53:14 08/11/19 18 [facility] am No observ ation record ed. [email or web address] In-Office Order Internal Use Only DO Not Attach Compendium DO Not Attach Compendium, Do Not Delete/merge, [id number] 08/10/2017 13:47:50 09/20/19 18 09/13/2017 imagi ng/di agnos tic resul t No observ ation record ed. [email or web address] Not Available 2017 16:18:23 11/08/19 18 [facility] am No observ ation record ed. [email or web address] In-Office Order Internal Use Only DO Not Attach Compendium DO Not Attach Compendium, Do Not Delete/merge, [id number] 11/07/2017 11:54:23 11/08/19 19 11/06/2018 [facility] am No observ ation record ed. [email or web address] In-Office Order Internal Use Only DO Not Attach Compendium DO Not Attach Compendium, Do Not Delete/merge, [id number] 11/07/2018 14:31:29 Result Notes None recorded. Problems Name Problem SNOMED Code Status Onset Date Resolution Date Notes Provider Name and Address Organization Details Recorded Time Body mass index 40+ - severely obese 789305482 Active Alvin seymour, [facility] 6 08:26:38 Vitamin B deficiency 66404625 Active Alvin Lomax null, [facility] 6 08:26:38 Vitamin D deficiency 93330320 Active MD [address], [place], [address], [facility] 6 09:32:47 Cobalamin deficiency 161323462 Active MD [address], [place], [address], [facility] 6 09:32:47 Pre-surger y evaluation Active 2017 Jenae Kwong [facility] 8 11:26:45 Dyspnea 760199986 Active 2017 Kerri White [facility] 8 13:39:05 Screening for malignant neoplasm of colon Active 2013 ENTERED BY: MONA OLMEDO PA-C; SIGNED BY: MONA OLMEDO PA-C Alvin seymour, [facility] 6 08:26:38 Family history of polyp of colon 509794393 Active 2013 ENTERED BY: MONA OLMEDO PA-C; SIGNED BY: MONA OLMEDO PA-C Alvin seymour, [facility] 6 08:26:38 Family history of malignant neoplasm of gastrointe stinal tract 472139027 Active 2013 ENTERED BY: MONA OLMEDO PA-C; SIGNED BY: MONA OLMEDO PA-C Alvin seymour, [facility] 6 08:26:38 Hypertensi ve disorder 40692311 Active MD [address], [place], [address], [facility] 6 09:32:47 Impaired fasting glycemia 455540351 Active MD [address], [place], [address], [facility] 6 09:32:47 Obesity 399466682 Active MD [address], [place], [address], [facility] 6 09:32:47 Knee pain Active Alvin seymour, [facility] 6 08:26:38 Hypertrigl yceridemia 153549902 Active Alvin seymour, [facility] 6 08:26:38 Problem Notes None recorded. Procedures Surgical History Date Name Laterality Status Provider Name and Address Organization Details Recorded Time 11/28/19 18 Gastric bypass for obesity completed Jamee Rojas [facility] 11/06/2018 11:29:18 09/11/19 18 Transthoracic Echocardiogram completed Abby Esteves MD, [facility] [address], [place], [address], [facility] 09/10/2017 17:49:17 05/04/20 15 Date of [facility] 14:39:11 09/10/19 15 [facility] 14:39:11 09/03/19 15 Date of Last [facility] 14:39:11 06/04/18 93 [facility] 14:39:11 Other completed Maricarmen Winters [facility] 05/08/2017 15:03:19 Imaging Results Imaging Date Name Status LastModified by Organization Details LastModified Time 06/21/2017 imaging/diagnostic result completed [email or web address] Information not available 07/23/2017 13:53:14 08/10/2017 electrocardiogram completed [email or web address] In-Offi ce Order Internal Use Only DO Not Attach Compendium DO Not Attach Compendium, Do Not Delete/merge, [id number] 08/10/2017 13:47:50 09/13/2017 imaging/diagnostic result completed [email or web address] Information not available 09/19/2017 16:18:23 11/07/2017 electrocardiogram completed [email or web address] In-Offi ce Order Internal Use Only DO Not Attach Compendium DO Not Attach Compendium, Do Not Delete/merge, [id number] 11/07/2017 11:54:23 11/06/2018 electrocardiogram completed [email or web address] In-Offi ce Order Internal Use Only DO Not Attach Compendium DO Not Attach Compendium, Do Not Delete/merge, [id number] 11/07/2018 14:31:29 Procedure Notes None recorded. Medical Equipment None Reported. Allergies Allergen ID Allergen Name Allergen Category Reaction Reaction Severity Criticality Documentation Date Start Date Code Code System Note Provider Name and Address Organization Details Recorded Time 20231203 Substance with sulfonami de structure and antibacte rial mechanism of action (substanc e) medicatio n Not available Not available Not available 07/31/20142013 47766 8003 SNOMED SEVER ITY: CRITI VANESSA; Not Available [facility] 5 03:29:46 040064 acetamino phen / oxycodone medicatio n itching Not available Not available 09/23/2015 11059 3 RxNorm [facility] 6 14:39:11 Medications Name Sig Start Date Stop Date [...] AND 1/2 ML ( 20 MG) BY [facility] TWO TIMES A DAY 11/06 completed Not [...] SIGNED BY: MONA Dominguez PA-C; PHARMACY : [id number]* [id number] [id number] PH: FAX: ;DATE: 014; GENERIC: PEG 3350-KCL [...] Not Available Not Available Not Available Fluvirin 0286-5476 45 mcg (15 mcg x 3)/0.5 mL intramusc ular suspensio n VACCINAT ION ADMINIST ERED BY PHARMACI ST 05/08 completed Not Available Not Available Not Available Vitals Date Recorded Body height Body mass index (BMI) Body weight Heart rate Systolic blood pressure Diastolic blood pressure Provider Name and Address Organization Details Last Updated DateTime 8 159.004 cm 48.3 kg/m2 380756. 35 g 88 /min 126 mm[Hg] 80 mm[Hg] Jenae Kwong [facility] 8 11:35:08 Date Recorded Body height Body mass index (BMI) Body weight Heart rate Systolic blood pressure Diastolic blood pressure Provider Name and Address Organization Details Last Updated DateTime 8 159.004 cm 48.3 kg/m2 805453. 07 g 91 /min 127 mm[Hg] 78 mm[Hg] Maricarmen Winters [facility] 8 10:22:33 Date Recorded Body height Provider Name an d Address Organization Details Last Updated DateTime 09/10/2017 159.004 cm Kerri White [facility] 0 09/10/2017 13:39:07 Date Recorded Body height Body mass index (BMI) Body weight Heart rate Systolic blood pressure Diastolic blood pressure Provider Name and Address Organization Details Last Updated DateTime 8 159.004 cm 47.7 kg/m2 507743. 57 g 90 /min 100 mm[Hg] 70 mm[Hg] Carlee Tobias [facility] 8 11:32:04 Date Recorded Body height Body mass index (BMI) Body weight Provider Name and Address Organization Details Last Updated DateTime 11/06/2018 159.004 cm 31.4 kg/m2 63344.66 g Jamee Rojas [facility] 11/06/2018 11:23:34 Date Recorded Systolic blood pressure Diastolic blood pressure Provider Name and Address Organization Details Last Updated DateTime 11/06/2018 114 mm[Hg] 76 mm[Hg] Abby Esteves MD, [facility] [address], [place], [address], [facility] 11/06/2018 11:44:27 Social History Question Answer Notes LastModified by Organizat ion Details LastModified Time Tobacco Smoking Status Never Smoker Maria Isabel Jenkins, [facility] 09/23/2015 14:40:09 Do You Have An Advance [...] Never Information not available 08/10/2017 Marital Status Info rmation not available 09/23/2015 What Was [...] 11/07 11:21:36 Father Heart disease 74 of [place], had histor y of CHF and cardio [...] Condition Response Hypertension (high blood pressure) Y Heart Attack ([place]) N Hypercholesterolemia (high cholesterol) Y Hepatic / Liver Disease N Past Medical [...] SNOMED-CT Code Diagnosis ICD10 Code Diagnosis Note [id number] [facility]_MNP_W [address] [place] [address] 07/11/2013 00:00:00 [id number] Rakesh Valdez MD [facility] [address] [place] [address] 09/23/2015 14:03:41 09/23/2015 15:20:44 Hypertensive disorder 95201870 I10 Impaired f asting glycemia 321691010 R73.01 Obesity 368870130 E66.01 Knee pain 67181913 M25.5 62 [id number] Rakesh Valdez MD [facility] [address] [place] [address] 09/30/2015 14:09:15 09/30/2015 15:04:40 Obesity 932735847 E66.01 Hypertensive disorder 38 420857 I10 Hypertriglyceridemia 302 594391 E78.1 BOWMAN will start Wt loss program [id number] Rakesh Valdez MD [facility] [address] [place] [address] 03/23/2016 15:09:23 03/23/2016 16:04:01 Body mass index 40+ - severely obese 495038412 Z68.43 Vitamin B deficiency 479 56812 E53.8 Hypertriglyceridemia 302 038338 E78.1 BOWMAN will start Wt loss program make fasting appointmen t Hypertensive disorder 38 071854 I10 metoprolol and HCTZ [id number] Rakesh Valdez MD [facility] [address] [place] [address] 04/11/2016 07:54:09 04/11/2016 09:09:32 Impaired fasting glycemia 394607942 R73.01 Hypertensive disorder 38 874463 I10 metoprolol and HCTZ Obesity 411402622 E66.01 Family his tory of combined hyperlipidemia 2481359500 9100 Z83.49 Vitamin D deficiency 347 53411 E55.9 Cobalamin deficiency 190 115919 E53.8 [id number] Rakesh Valdez MD [facility] [address] [place] [address] 05/10/2016 10:09:06 05/10/2016 11:29:46 Body mass index 40+ - severely obese 757752958 Z68.43 losing weight on current regimen without side effects Acquired hypothyroidism 894490851 E03.9 high TSH, low T4, no thyroid peroxidase antibodies . plan to start low dose replacemen t therapy and obtain thyroid U/S for further evaluation . 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 Acquired hypothyroidism 411602971 E03.8 [id number] Rakesh Valdez MD [facility] [address] [place] [address] 07/19/2016 09:16:22 07/19/2016 10:04:06 Body mass index 40+ - severely obese 110176386 Z68.43 losing weight on current regimen without side effects Cobalamin deficiency 190 258828 E53.8 [id number] Rakesh Valdez MD [facility] [address] [place] [address] 09/06/2016 11:32:20 09/06/2016 12:33:43 Obesity 151482737 E66.01 Vitamin B deficiency 479 97937 E53.8 Vitamin D deficiency 347 83817 E55.9 Impaired f asting glycemia 422779587 R73.01 Hypertriglyceridemia 302 895233 E78.2 BOWMAN will start Wt loss program make fasting appointmen t Acquired hypothyroidism 160391157 E03.8 high TSH, low T4, no thyroid peroxidase antibodies . plan to start low dose replacemen t therapy and obtain thyroid U/S for further evaluation . [id number] Debi Jade NP PMG_GMA_F [facility] Office* [address] [facility],[address] [place] [address] 05/08/2017 14:40:40 05/08/2017 15:39:24 Pre-surgery evaluation 523470007 Z01.818 Family his tory of cancer of colon 360584932 Z80.0 [id number] Abby Esteves MD, [facility] PMG_CCA_F [facility] Office [address] [facility] [place] [address] 08/10/2017 11:18:36 08/10/2017 12:14:18 Preoperative cardiovascular examination 137609996 Z01.810 Low to intermedia te risk individual for intermedia te risk surgery. Normal ECG. No chest pain. Exercise tolerance >4 METS. May proceed with bariatric surgery from cardiac point of view. Timing of surgery TBD depending upon her success with her current weight loss program. Dyspnea 460530536 R06.02 Short of breath with stairs. At least in part from terence charlesg. Will plan for echocardio gram to evaluate LV function and pulmonary pressures. Essential hypertension 72949989 I10 Well controlled on current regimen. Hyperlipidemia 00879555 E78.5 Will check labs. Sleep apnea 14786686 G47 .30 Doing well with CPAP. Diabetes m ellitus screening 829744746 Z13.1 Will check HbA1c. Morbid obesity 217392480 E66.01 Losing weight with [employer]. [id number] Rylie Del Rosario, MAX-C PMG_GMA_F [facility] Office* [address] [employer] [facility],[address] [place] [address] 08/16/2017 09:57:46 08/16/2017 10:39:36 Gastric ulcer 114629693 K25.9 Family his tory of cancer of colon 110801089 Z80.0 History of polyp of colon 911627132 Z86.010 [id number] [facility] [address] [facility] [address] [place] [address] 09/10/2017 11:07:00 09/11/2017 08:26:16 Dyspnea 630631411 R06.02 Short of breath with stairs. [facility] in [facility]. Will plan for echocardio gram to evaluate LV function and pulmonary pressures. [id number] Abby Esteves MD, [facility] PMG_CCA_F [facility] Office [address] [facility] [address] [place] [address] 11/07/2017 11:18:58 11/07/2017 12:01:46 Dyspnea 172293364 R06.02 Normal echocardio gram. Likely from [facility]. Preoperati ve cardiovascular examination 725867971 Z01.810 Low to intermedia te risk individual for intermedia te risk surgery. No chest pain. Normal ECG today. Exercise tolerance >4 METS. May proceed with bariatric surgery from cardiac point of view. Essential hypertension 89980953 I10 BP remains well controlled . Hyperlipidemia 23267522 E78.[address] Chau. Palpitations 08693282 R0 0.2 Well controlled with metoprolol . Sleep apnea 69382085 G47 .30 Using CPAP regularly. Morbid obesity 794288799 E66.01 Planning for bariatric surgery. [id number] Abby Esteves MD, [facility] PMG_CCA_F [facility] Office [address] [facility] [place] [address] 11/06/2018 11:18:48 11/06/2018 11:48:44 Essential hypertension 85326921 I10 BP well controlled without medication . Continue healthy lifestyle. We can forward records to her new physicians in [place]. Encourage regular exercise. Hyperlipidemia 06917634 E78.[address] Chau. Palpitations 10926385 R0 0.2 Rare symptoms. Can use metoprolol as needed. We discussed that she should start with 25mg daily as needed. Sleep apnea 93268941 G47 .30 Using CPAP regularly. Obesity 808577780 E66.9 Continue current medication s. Health Concerns Section Related Observation LastModified by Organization Detai ls LastModified Time None Recorded Concern Status LastModified by Organization Details LastModified Time None Recorded Advance Directives Directive N: Payers Encounter Date Sequence Insurance Name Policy Number Policy Fox Covered Member ID Fox Member ID Guarantor Name 08/10/2017 1 [facility] [id number] Ubaldo Carter [id number] Dafne Carter 08/16/2017 1 [facility] [id number] Ubaldo Carter [id number] Dafne Carter 09/10/2017 1 [facility] [id number] Ubaldo Carter [id number] Dafne Hensleyebmisael 11/07/2017 1 [facility] [id number] Ubaldo Espinoza [employer] [id number] Patricia Luebmisael 11/06/2018 1 [facility] [id number] Ubaldo Raibers [id number] PatriciaChantal Carter Notes Date Note Type Note [...] has lost 10 pounds. Abby Esteves MD, [facility] [address], [place], [address], [facility] 08/10/2017 12:11:38 8 text/html 56 y/o [...] in the descending colon. Rylie Del Rosario, [facility] [address], [place], [address], [facility] 08/16/2017 11:23:46 8 text/html HyperlipidemiaReported bypatient.Notes:Labs [...] up visit for palpitations. Abby Esteves MD, [facility] [address], [place], [address], [facility] 11/07/2017 11:51:20 9 text/html HyperlipidemiaReported bypatient.Notes:Labs 06/2016 [...] after gastric bypass surgery. Abby Esteves MD, [facility] [address], [place], [address], [facility] 11/06/2018 11:47:08 OBGyn Episode No OBEpisode recorded.
--- OUTSIDE RECORDS SUMMARY | 2024-10-07 08:52 | XMS_ITS | Data Portability ---
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 Plan of Treatment Reminders Order Date Submit Date Provider Last Modified By Organization Details Last Modified Time Details Appointments None recorded. Lab rapid influenza virus A + B and SARS CoV + SARS CoV 2 Ag panel, IA, upper respirato ry specimen 2022 023 [email or web address] In-Office Order, Internal Use Only DO Not Attach Compendium DO Not Attach Compendium, Do Not Delete/merge, [id number] 15:52:11 CMP, serum or plasma 2022 023 [facility], [address] [facility] [address], [place], [address], 3 04:24:56 fungus, culture, unspecifi ed specimen 2022 023 [facility], [address] [facility] [address], [place], [address], 3 06:27:47 rapid SARS CoV 2 Ag, QL IA, respirato ry specimen 2019 020 [facility] In-Office Order, Internal Use Only DO Not Attach Compendium DO Not Attach Compendium, Do Not Delete/merge, [id number] 09:34:53 SARS CoV 2 RNA (COVID-19 ), QL, information officer-PCR, respirato ry specimen 2019 020 [facility], [address] [facility] [address], [place], [address], 0 13:23:04 rapid SARS CoV 2 Ag, QL IA, respirato ry specimen 2019 020 [email or web address] In-Office Order, Internal Use Only DO Not Attach Compendium DO Not Attach Compendium, Do Not Delete/merge, [id number] 0 16:07:57 Referral None recorded. Procedures pulse oximetry (PROC) 2019 020 [place] In-Office Order, Internal Use Only DO Not Attach Compendium DO Not Attach Compendium, Do Not Delete/merge, [id number] 0 09:34:53 pulse oximetry (PROC) 2019 020 [email or web address] In-Office Order, Internal Use Only DO Not Attach Compendium DO Not Attach Compendium, Do Not Delete/merge, [id number] 0 16:07:56 Surgeries None recorded. Imaging None recorded. Medication Orders Ambien 5 mg tablet 2022 023 [facility] [id number], [address] [place], [address], 3 16:00:10 amoxicill in 875 mg-potass ium clavulana te 125 mg tablet 2022 023 [email or web address] 6 [facility] [id number], [address] [place], [address], 3 15:36:56 terbinafi ne HCl 250 mg tablet 2022 023 [facility] [id number], [address] [place], [address], 3 16:04:19 Patient TargetsNo targets recorded. Patient Instructions Encounter Date Encounter Id Patient Instructions Last Modified By Organization Details Last Modified Time 04/30/2020 [id number] things to do i f you've been exposed to covid-19 [email or web address] Not available 04/30/2020 16:07:57 Complexity of Patient Visit: Moderate Due to current active problems, medications required and patient education Face Time 10 minutes with >50% contact with Established Patient/Telemedicin e Visit - phone contact. Reviewed pertinent diagnoses at length including counseling and reassurance. Discussed risks, potential side effects and benefits of current treatment plan and medications. All patient questions and concerns were addressed and answered. Patient verbalized understanding and agreement with treatment plans. jgeorgitis Not available 04/30/2020 16:08:02 05/05/2020 [id number] headache: care instructions [place] Not available 05/09/2020 09:34:53 COVID-19 counseling* [facility] Not available 05/09/2020 09:34:53 COVID-19 Information [facility] Not available 05/09/2020 09:34:53 9 things to do i f you've been exposed to covid-19 [facility] Not available 05/09/2020 09:34:53 nausea and vomiting: care instructions [place] Not available 05/09/2020 09:34:53 What is viral syndrome? Viral syndrome is a term caregivers use for general symptoms of a viral infection that has no clear cause. What are the signs and symptoms of viral syndrome? Signs and symptoms may start slowly or suddenly and last hours to days. They can be mild to severe and can place change roof bolter days or hours. Fever and chills, or a rash Runny or stuffy nose Cough, sore throat, or hoarseness Headache, or pain and pressure around your eyes Muscle aches and joint pain Shortness of breath or wheezing Abdominal pain, cramps, and diarrhea Nausea, vomiting, or loss of appetite How is viral syndrome treated? An illness caused by a virus usually goes away in 10 to 14 days without treatment. The following medicines may be given to help manage your signs and symptoms: Antipyretics: These reduce fever. Antihistamines: These help relieve a rash, itching, and trouble breathing. Decongestants: These decrease a stuffy nose so that you can breathe more easily. Antitussives: These help control a cough. Antiviral medicine: These help kill the virus and control symptoms. What increases my risk for viral syndrome? You are an older adult or elderly. Your immune system is weakened from illness, or from a stem cell or organ transplant. You smoke or are around people who smoke. You travel often. You swim in a pool that is not chlorinated correctly. What can I do to help prevent the spread of viral syndrome? Viruses are spread easily from person to person through the air and on shared items. You can spread a virus to other people for weeks after your symptoms go away. The following are ways to prevent the spread of a virus: Wash your hands: Wash your hands often with soap and water or use an alcohol-based gel. Wash your hands after you touch someone who is sick. Wear a mask: A mask can help you prevent the spread of a virus. If you need to wear a mask, ask your caregiver where to get one. Cook and handle food properly: Cook food completely through. Clean food preparation surfaces with a disinfectant. What are the risks of viral syndrome? Caregivers may not know that you have a serious disease. Signs and symptoms of very serious diseases may look like viral syndrome. A sinus infection can turn into a bacterial infection. A viral infection can lead to a serious, life-threatening infection anywhere in your body. Viral syndrome may make your chronic bronchitis, asthma, or COPD worse. You can get a viral illness more than once, even with treatment. You don't feel well, but it's not clear what's causing it. You may have a viral infection. Viruses cause many illnesses, such as the common cold, influenza, fever, rashes, and the diarrhea, nausea, and vomiting that are often called stomach flu. You may wonder if antibiotic medicines could make you feel better. But antibiotics only treat infections caused by bacteria. They don't work on viruses. The good news is that viral infections usually aren't serious. Most will go away in a few days without medical treatment. In the meantime, there are a few things you can do to make yourself more comfortable. Follow-up care is a davis part of your treatment and safety. Be sure to make and go to all appointments, and call your doctor if you are having problems. It's also a good idea to know your test results and keep a list of the medicines you take. How can you care for yourself at home? Get plenty of rest if you feel tired. Take an vypx-aav-gtosgvc pain medicine if needed, such as acetaminophen (Tylenol), ibuprofen (Advil, Motrin), or naproxen (Aleve). Read and follow all instructions on the label. Be careful when taking upiv-ekm-fihcprz cold or flu medicines and Tylenol at the same time. Many of these medicines have acetaminophen, which is Tylenol. Read the labels to make sure that you are not taking more than the recommended dose. Too much acetaminophen (Tylenol) can be harmful. Drink plenty of fluids, enough so that your urine is light yellow or clear like water. If you have kidney, heart, or liver disease and have to limit fluids, talk with your doctor before you increase the amount of fluids you drink. Stay home from work, school, and other public places while you have a fever. When should you call for help? Call 911 anytime you think you may need emergency care. For example, call if: You have severe trouble breathing. You passed out (lost consciousness). Call your doctor now or seek immediate medical care if: You seem to be getting much sicker. You have a new or higher fever. You have blood in your stools. You have new belly pain, or your pain gets worse. You have a new rash. Watch closely for changes in your health, and be sure to contact your doctor if: You start to get better and then get worse. You do not get better as expected. Care instructions adapted under license by [facility]. You've been evaluated for COVID-19. Your rapid COVID testing in-house was NEGATIVE. Continue to practice social distancing (6-10 feet), frequent hand hygiene and mask-wearing. Go directly to the Emergency Dept if you develop any emergency warning signs/symptoms such as: difficulty breathing, shortness of breath, chest pain, confusion, lethargy, bluish lips/face For general questions or concerns about the Coronavirus, please call: [place] COVID-19 Hotline: [phone] (open 24 hours, 7 days a week) For further information about COVID including positive COVID-19 test results in [place]: CDC's website www.cdc.gov/coronav irus and [place] Dept of Health and Human Services website www.[facility].gov/natalie navmichelle What is COVID-19? COVID-19 is caused by the SARS-CoV-2 virus. The virus can cause mild to severe respiratory illness and has spread globally, including the [place]. The current information available to characterize the spectrum of clinical illness associated with COVID-19 suggests that symptoms include cough, shortness of breath or difficulty breathing, fever, chills, muscle pain, headache, diarrhea, vomiting, sore throat or new loss of taste or smell. What is the Jeannette SARS Antigen JENN test? The Jeannette SARS Antigen JENN is a type of test called an antigen test. Antigen tests are designed to detect proteins from the virus that causes COVID-19 in respiratory specimens, for example nasal swabs. Why was my sample tested? You were tested because your healthcare provider believes you may have been exposed to the virus that causes COVID-19 based on your signs and symptoms (e.g., fever, cough, difficulty breathing), and/or other risk factors. What are the known and potential risks and benefits of the test? Potential risks include: Possible discomfort or other complications that can happen during sample collection. Possible incorrect test result (see below for more information). Potential benefits include: The results, along with other information, can help your healthcare provider make informed recommendations about your care. The results of this test may help limit the spread of COVID-19 to your family and others in your community. What does it mean if I have a positive test result? If you have a positive test result, it is very likely that you have COVID-19 because proteins from the virus that causes COVID-19 were found in your sample. Therefore, it is also likely that you may be placed in isolation to avoid spreading the virus to others. There is a very small chance that this test can give a positive result that is wrong (a false positive result). Your healthcare provider will work with you to determine how best to care for you based on your test result(s) along with your medical history, and your symptoms. What does it mean if I have a negative test result? A negative test result means that proteins from the virus that causes COVID-19 were not found in your sample. It is possible for this test to give a negative result that is incorrect (false negative) in some people with COVID19. This means that you could possibly still have COVID19 even though the test is negative. If your test result is negative, your healthcare provider will consider the test result together with all other aspects of your medical history (such as symptoms, possible exposures, and geographical location of places you have recently traveled) in deciding how to care for you. It is important that you work with your healthcare provider to help you understand the next steps you should take. What are the differences between antigen tests and other COVID-19 tests? There are different kinds of tests for diagnosing COVID19. Molecular tests (also known as PCR tests) detect genetic material from the virus. Antigen tests detect proteins from the virus. Antigen tests are very specific for the virus, but are not as sensitive as molecular tests. This means that a positive result is highly accurate, but a negative result does not rule out infection. If your test result is negative, you should discuss with your healthcare provider whether an additional molecular test would help with your care, and when you should discontinue home isolation. If you do not have an additional test to determine if you are infected and may spread the infection to others, the CDC currently recommends that you should stay home until three things have happened: You have had no fever for at least 72 hours (that is three full days of no fever without the use of medicine that reduces fevers) AND Other symptoms have improved (for example, when your sore throat, nasal symptoms, cough or shortness of breath has improved) AND At least 7 days have passed since your symptoms first appeared. However, given the current outbreak of COVID-19 this illness cannot be ruled out fully given the symptoms. Pt is currently in no acute distress, breathing is even and unlabored, and they are speaking in full sentences. Patients was instructed to contact the [facility] line at to be triaged. They will be instructed on whether they need to be tested for COVID-19 and further instructions. If they find out they have been in close contact within 6 feet who tested positive, they agree to contact their provider or re-contact the help line. They are aware guidelines for testing are rapidly changing and therefore agree to stay in contact with CDC/Health Dept/PCM re: symptoms and progression. Pt states they understand and agree to practice good hand hygiene and social distancing and understand steps to take if they are not improving with the treatment recommendations provided today. This includes seeking care in the emergency department for any shortness of breath or respiratory distress, fevers that are not resolving with antipyretics, unable to tolerated PO intake, or any other new/concerning sx that may arise. Please call any healthcare facility before arriving to make them aware of your symptoms. Please call 911 in the case of an emergency. Testing for COVID performed today. A negative test does not rule out COVID and patient should take precautions as discussed. Discussed sensitivity and specificity of testing and typical turnaround time. We will contact with results. Patient will self-isolate and form/paperwork completed for the Health Department. Patient voiced understanding and in agreement with plan, instructions/handou t given to patient. Recommend rest, fluids and warm steam. OTC medications as needed, reviewed dosing. Reviewed red flag symptoms at length, including cyanosis, shortness of breath, chest pain, AMS, etc. They voiced understanding. At this time patient is safe for discharge and agrees with the plan. I do not suspect pneumonia at this time. You've been evaluated for a viral illness. Currently there is low suspicion that you have the Coronavirus (COVID-19.) Should you develop new or worsening symptoms please contact the [place] hot line below. This recommendation is based upon current [facility] and [place] Department of Health and Human Services recommendations at the time of your visit. It is imperative that you follow isolation/treatment guidelines if they are given to you by the [place] department of Health and Human Services. For general questions or concerns about the Coronavirus, please call: [place] COVID-19 Hotline: [phone] (open 24 hours, 7 days a week) For more information which will also include further positive Coronavirus (COVID-19) test results in [place], please visit: CDC's website www.cdc.gov/coronav irus and [place] Dept of Health and Human Services website www.[facility].gov/natalie navirus A negative test only says that the virus was not present or not present in a large enough amount to be detected. When testing is negative, the possibility of a false negative result will be considered depending on the context of your recent exposures, the presence of clinical signs and symptoms consistent with COVID-19, and if tests for other causes of illness such as other respiratory illness are negative. If we still suspect COVID-19, or if your symptoms worsen, we will recommend a re-testing. Regardless of your test results, we are committed to providing you with follow-up care, to help treat your symptoms. However, given the current outbreak of COVID-19 this illness cannot be ruled out fully given the symptoms. Pt is currently in no acute distress, breathing is even and unlabored, and they are speaking in full sentences. Patients was instructed to contact the [facility] Health line at to be triaged. They will be instructed on whether they need to be tested for COVID-19 and further instructions. If they find out they have been in close contact within 6 feet who tested positive, they agree to contact their provider or re-contact the help line. They are aware guidelines for testing are rapidly changing and therefore agree to stay in contact with CDC/Health Dept/PCM re: symptoms and progression. Pt states they understand and agree to practice good hand hygiene and social distancing and understand steps to take if they are not improving with the treatment recommendations provided today. This includes seeking care in the emergency department for any shortness of breath or respiratory distress, fevers that are not resolving with antipyretics, unable to tolerated PO intake, or any other new/concerning sx that may arise. Please call any healthcare facility before arriving to make them aware of your symptoms. Please call 911 in the case of an emergency. When to return to work and discontinue isolation. If you have tested positive for COVID-19 OR if you have symptoms of COVID-19 and will not be tested, including early or mild symptoms, you should be in isolation and remain off WORK (stay away from others) until: 1) You have had no fever for at least 72 hours (that is three full days of no fever without the use of medicine that reduces fevers) AND 2) other symptoms have improved (for example, when your cough or shortness of breath have improved) AND 3) At least 10 days have passed since your symptoms first appeared Laboratory testing to confirm the absence of infectious condition is not needed to return to work per the CDC as long as the above rules being followed. We advised all patients to continue social distancing by maintaining a distance of 6 feet from all other individuals in the workplace and self-monitor for any new symptoms of illness. Watch for symptoms Reported illnesses have ranged from mild symptoms to severe illness and for confirmed coronavirus disease 2019 (COVID-19) cases. These symptoms may appear 2-14 days after exposure (based on the incubation period of MERS-CoV viruses). Fever Cough Shortness of breath Emergent follow up will require If you develop emergency warning signs for COVID-19 get medical attention immediately. Emergency warning signs include*: Trouble breathing Persistent pain or pressure in the chest New confusion or inability to arouse Bluish lips or face This list is not all-inclusive. Please consult your medical provider for any other symptoms that are severe or concerning. Get daily exercise. Exercise is a powerful stress photo intern, can improve your mood and can keep you healthy. It's best if you develop a regular routine and work out most days of the week. Start out slow and gradually increase the amount and intensity of exercise. Eat a healthy diet. Avoid fatty, sugary and processed foods. Include foods in your diet that are rich in omega-3 fatty acids and B vitamins. Avoid alcohol and other sedatives. These can worsen anxiety. Use relaxation techniques. Visualization techniques, meditation and yoga are examples of relaxation techniques that can ease anxiety. Make sleep a priority. Do what you can to make sure you're getting enough quality sleep. If you aren't sleeping well, see your doctor. - Please continue taking your medications as prescribed for your mental health. - Continue practicing sleep hygiene techniques such as reducing screen time before bed, going to sleep earlier, and waking up at same time every day. - Do not make changes to your medications, including taking more or less than prescribed, unless under the supervision of your primary care provider. Be aware that some medications may make you feel worse if abruptly stopped After performing a Medical Screening Examination, I estimate there is LOW risk for ACUTE CVA, ACUTE RENAL FAILURE, ACUTE CORONARY SYNDROME, OR THORACIC AORTIC DISSECTION, thus I consider the discharge disposition reasonable. The patient and I have discussed the diagnosis and risks, and we agree with discharging home with close follow-up. We also discussed returning to the Office immediately if new or worsening symptoms occur. We have discussed the symptoms which are most concerning (e.g., bloody sputum, worsening pain or shortness of breath) that necessitate immediate return. Recommend eating a healthier diet with less salt (the Dietary Approaches to Stop Hypertension, or DASH, diet), exercising more, quitting smoking (if appropriate) and losing weight. Try the Dietary Approaches to Stop Hypertension (DASH) diet, which emphasizes fruits, vegetables, whole grains and low-fat dairy foods. Eat less saturated fat and total fat. A lower sodium level 1,500 milligrams (mg) a day is appropriate for people 51 years of age or older, and individuals of any age who are -[place] or who have hypertension, diabetes or chronic kidney disease. If you're overweight, losing even 5 pounds (2.3 kilograms) can lower your blood pressure. Urge regular physical activity which can help lower your blood pressure and keep your weight under control. Strive for at least 20-30 minutes of brisk physical activity at least 2-4 times a week. If you choose to drink alcohol, do so in moderation, Tobacco injures blood vessel adams and speeds up the process of hardening of the arteries. Reduce stress as much as possible. Practice healthy coping techniques, such as muscle relaxation and deep breathing as well as getting plenty of sleep. Monitor and chart blood pressure readings and ED precautions if >180/100 or <80/60. Standard treatment for hypothyroidism involves daily use of the synthetic thyroid hormone levothyroxine (Levothroid, Synthroid, others). This oral medication restores adequate hormone levels, reversing the signs and symptoms of hypothyroidism. One to two weeks after starting treatment, you'll notice that you're feeling less fatigued. The medication also gradually lowers cholesterol levels elevated by the disease and may reverse any weight gain. Treatment with levothyroxine is usually lifelong, but because the dosage you need may change, your doctor is likely to check your TSH level every year. Determining the right dosage may take time. To determine the right dosage of levothyroxine initially, your doctor generally checks your level of TSH after two to three months. Excessive amounts of the hormone can cause side effects, such as: increased appetite, Insomnia, Heart palpitations, Shakiness. If you have coronary artery disease or severe hypothyroidism, your doctor may start treatment with a smaller amount of medication and gradually increase the dosage. Progressive hormone replacement allows your heart to adjust to the increase in metabolism. Levothyroxine causes virtually no side effects when used in the appropriate dose and is relatively inexpensive. If you change brands, let your doctor know to ensure you're still receiving the right dosage. Also, don't skip doses or stop taking the drug because you're feeling better. If you do, the symptoms of hypothyroidism will gradually return. [email or web address] Not available 05/09/2020 09:33:02 Face to face encounter detailed mild to moderate complexity, including clinical analysis & risk assessment, laboratory interpretation, medication monitoring, & management, orders substantiation, record attestation, with direct clinical dialogue and >50% of the visit spent in education, discussion, & counseling, separate from the diagnostic/testing procedure(s) performed, as above. Follow up as needed, or sooner for new/worsening symptoms. All pt. questions and concerns were addressed and answered. Pt. verbalized understanding and agreement of treatment plan. [email or web address] Not available 05/09/2020 09:33:15 10/02/2022 [id number] Acute Sinusitis: Care Instructions [email or web address] Not available 10/02/2022 15:52:11 cough: care instructions [email or web address] Not available 10/02/2022 15:52:11 Reason for Referral None Reported. Results Created Date Observation Date Name Description Value Unit Range Abnormal Flag Note LastModifiedBy Organization Detail LastModifiedTime 05/05/20 20 05/05/2020 pulse oxime try (PROC ) pulse oximetry 98% room air Not Available In-Office Order Internal Use Only DO Not Attach Compendium DO Not Attach Compendium, Do Not Delete/merge, [id number] 05/05/2020 17:13:05 04/30/20 20 04/30/2020 rapid SARS CoV 2 Ag, QL IA, respi rator y speci men RAPID Nasal Covid negati ve Not Available In-Office Order Internal Use Only DO Not Attach Compendium DO Not Attach Compendium, Do Not Delete/merge, [id number] 04/30/2020 15:53:59 04/30/20 20 04/30/2020 pulse oxime try (PROC ) pulse oximetry 96% AT ROOM AIR Not Available In-Office Order Internal Use Only DO Not Attach Compendium DO Not Attach Compendium, Do Not Delete/merge, [id number] 04/30/2020 15:53:40 05/05/20 20 05/05/2020 rapid SARS CoV 2 Ag, QL IA, respi rator y speci men RAPID Nasal Covid negati ve Not Available In-Office Order Internal Use Only DO Not Attach Compendium DO Not Attach Compendium, Do Not Delete/merge, [id number] 05/05/2020 17:13:34 09/20/1910/17/2022 CULTU RE, FUNGU S, SKIN, HAIR OR NAILS culture, fungus, skin, hair or nails SEE NOTE abnormal CULTU RE, FUNGU S, SKIN, HAIR OR NAILS Micro Numbe r: [id number] Test Statu s: Final Speci men Sourc e: Nails Speci men Quali ty: Adequ ate Resul t: Growt h of Penic illiu m speci es Scant growt h of Nikky da famat a (form erly Torul opsis nikky da) No addit ional fungi isola charly after 4 weeks Not Available [facility] [address] [place] [address], [id number], 10/17/2022 08:38:56 10/03/19 23 10/02/2022 rapid influ milly virus A + B and SARS CoV + SARS CoV 2 Ag panel , IA, upper respi rator y speci men Rapid Combo Flu & Covid negati ve Not Available In-Office Order Internal Use Only DO Not Attach Compendium DO Not Attach Compendium, Do Not Delete/merge, [id number] 10/02/2022 15:15:30 10/26/19 23 10/26/2022 COMPR EHENS RADHA METAB OLIC PANEL glucose 82 mg/dL 65-139 normal Non-f astin g refer ence inter saundra Not Available [facility] [facility] [address] [place] [address], [address], 10/26/2022 04:24:56 10/26/19 23 10/26/2022 COMPR EHENS RADHA METAB OLIC PANEL urea nitrogen (BUN) 12 mg/dL 7-25 normal Not Available [facility] [address] [place] [address], [id number], 10/26/2022 04:24:56 10/26/19 23 10/26/2022 COMPR EHENS RADHA METAB OLIC PANEL creatinine 0.75 mg/dL 0.50-1 .05 normal Not Available [facility] [address] [place], [address], 10/26/2022 04:24:56 10/26/19 23 10/26/2022 COMPR EHENS RDAHA METAB OLIC PANEL eGFR 90 mL/mi n/1.7 3m2 > or = 60 normal The eGFR is based on the CKD-E PI 2020 equat ion. To calcu late the new eGFR from a previ ous Creat inine or Cysta tin C resul t, go to https :[email or web address] [email or web address].analisa herzog.o silke/pr fareed norman s/ kdoqi /gfr% 5Fcal culat or Not Available [facility] [address] [place] [address], [id number], 10/26/2022 04:24:56 10/26/19 23 10/26/2022 COMPR EHENS RADHA METAB OLIC PANEL BUN/creatini ne ratio NOT APPLIC ABLE (calc ) 6-22 Not Available [facility] [address] [place] [address], [address], 10/26/2022 04:24:56 10/26/19 23 10/26/2022 COMPR EHENS RADHA METAB OLIC PANEL sodium 140 mmol/ L 135-14 6 normal Not Available [facility] [address] [place] [address], [address], 10/26/2022 04:24:56 10/26/19 23 10/26/2022 COMPR EHENS RADHA METAB OLIC PANEL potassium 4.9 mmol/ L 3.5-5. 3 normal Not Available [facility] [address] [place] [address], [address], 10/26/2022 04:24:56 10/26/1910/26/2022 COMPR EHENS RADHA METAB OLIC PANEL chloride 103 mmol/ L 98-110 normal Not Available [facility] [address] [place] [address], [address], 10/26/2022 04:24:56 10/26/19 23 10/26/2022 COMPR EHENS RADHA METAB OLIC PANEL carbon dioxide 28 mmol/ L 20-32 normal Not Available [facility] [address] [place] [address], [address], 10/26/2022 04:24:56 10/26/19 23 10/26/2022 COMPR EHENS RADHA METAB OLIC PANEL calcium 9.6 mg/dL 8.6-10 .4 normal Not Available [facility] [address] [place] [address], [address], 10/26/2022 04:24:56 10/26/19 23 10/26/2022 COMPR EHENS RADHA METAB OLIC PANEL protein, total 6.8 g/dL 6.1-8. 1 normal Not Available [facility] [address] [place] [address], [address], 10/26/2022 04:24:56 10/26/19 23 10/26/2022 COMPR EHENS RADHA METAB OLIC PANEL albumin 3.9 g/dL 3.6-5. 1 normal Not Available [facility] [address] [place] [address], [address], 10/26/2022 04:24:56 10/26/19 23 10/26/2022 COMPR EHENS RADHA METAB OLIC PANEL globulin 2.9 g/dL_ (calc ) 1.9-3. 7 normal Not Available [facility] [address] [place] [address], [address], 10/26/2022 04:24:56 10/26/19 23 10/26/2022 COMPR EHENS RADHA METAB OLIC PANEL albumin/glob ulin ratio 1.3 (calc ) 1.0-2. 5 normal Not Available [facility] [address] [place] [address], [address], 10/26/2022 04:24:56 10/26/19 23 10/26/2022 COMPR EHENS RADHA METAB OLIC PANEL bilirubin, total 0.4 mg/dL 0.2-1. 2 normal Not Available [facility] [address] [place], [address], 10/26/2022 04:24:56 10/26/1910/26/2022 COMPR EHENS RADHA METAB OLIC PANEL alkaline phosphatase 126 U/L 37-153 normal Not Available [facility] [address] [place], [address], 10/26/2022 04:24:56 10/26/1910/26/2022 COMPR EHENS RADHA METAB OLIC PANEL AST 50 U/L 10-35 high Not Available [facility] [address] [place], [address], 10/26/2022 04:24:56 10/26/1910/26/2022 COMPR EHENS RADHA METAB OLIC PANEL ALT 34 U/L 6-29 high Not Available [facility] [address] [place], [address], 10/26/2022 04:24:56 Result Notes None recorded. Problems No Known Problems Procedures Surgical History Date Name Laterality Status Provider Name and Address Organization Details Recorded Time 06/04/19 18 Gastric Bypass completed Delmi Jones [facility] 05/05/2020 17:10:21 06/04/19 18 Colonoscopy completed [employer] 05/05/2020 17:10:21 06/04/19 15 Hysterectomy completed [employer] 05/05/2020 17:10:21 06/04/18 93 Caesarean Section completed [employer] 05/05/2020 17:10:21 Imaging Results None recorded. Procedure Notes None recorded. Medical Equipment None Reported. Allergies Allergen ID Allergen Name Allergen Category Reaction Reaction Severity Criticality Documentation Date Start Date Code Code System Note Provider Name and Address Organization Details Recorded Time 091648 Substance with sulfonami de structure and antibacte rial mechanism of action (substanc e) medicatio n Not available Not available Not available 04/30/2020 08943 8003 SNOMED Luisa [place] - [facility] 0 15:52:59 711136 acetamino phen / oxycodone medicatio n Not available Not available Not available 04/30/2020 99552 3 RxNorm Luisa Barrera [facility], [facility] 0 15:53:04 Medications Name Sig Start Date Stop Date Status Note LastModified by Organization Details LastModified Time doxycycline hyclate 100 mg capsule 09/14 completed Not Available Not Available Not Available levothyroxi ne 75 mcg tablet TAKE 1 TABLET BY MOUTH DAILY active Not Available Not Available No t Available cefadroxil 500 mg capsule TAKE ONE CAPSULE BY MOUTH EVERY 12 HOURS UNTIL ALL TAKEN 11/02 completed Not Available Not Available Not Available terbinafine HCl 250 mg tablet Take 1 tablet every day by oral route. 2022 active Not Available Not Available Not Avai lable levothyroxi ne 50 mcg tablet TK 1 T PO QD 09/14 completed Not Available Not Available Not Available mupirocin 2 % topical ointment APPLY TOPICALLY TO THE AFFECTED AREA THREE TIMES DAILY active Not Available Not Available No t Available zolpidem 5 mg tablet take one tab by mouth as needed for insomnia active Not Available Not Available No t Available levofloxaci n 750 mg tablet TAKE 1 TABLET BY MOUTH EVERY 24 HOURS UNTIL ALL TAKEN 09/14 completed Not Available Not Available Not Available fluticasone propionate 50 mcg/actuati on nasal spray,suspe nsion SHAKE LIQUID AND USE 2 SPRAYS IN EACH NOSTRIL DAILY active Not Available Not Available No t Available amoxicillin 875 mg-potassiu m clavulanate 125 mg tablet Take 1 tablet every 12 hours by oral route for 10 days. 11/02 completed Not Available Not Available Not Available clindamycin phosphate 1 % topical solution APPLY 2 DROPS DAILY TO PROCEDURE SITE 11/02 completed Not Available Not Available Not Available bupropion HCl XL 150 mg 24 hr tablet, extended release TAKE 1 TABLET BY MOUTH EVERY MORNING active Not Available Not Available No t Available duloxetine 30 mg capsule,del ayed release 11/02 completed Not Available Not Available Not Available duloxetine 60 mg capsule,del ayed release TAKE 1 CAPSULE BY MOUTH DAILY active Not Available Not Available No t Available diclofenac 1 % topical gel 11/02 completed Not Available Not Available Not Available BinaxNOW COVID-19 Ag Self Test kit TEST DIRECTED TODAY 09/14 completed Not Available Not Available Not Available Paxlovid 300 mg (150 mg x 2)-100 mg tablets in a dose pack TK 2 NIRMATREL VIR TS AND 1 RITONAVIR T TOGETHER PO BID FOR 5 DAYS TWICE DAILY FOR 5 DAYS 09/14 completed Not Available Not Available Not Available Vitals Date Recorded Body height Body mass index (BMI) Body weight Heart rate Body temperature Oxygen saturation Oxygen saturation in Arterial blood by Pulse oximetry Respiratory rate Provider Name and Address Organization Details Last Updated DateTime 0 158.75 cm 35.1 kg/m2 50416.5 1 g 82 /min 96.2 [degF] 96 % 96 % 15 /min Luisa Barrera [place] [facility] 0 15:52:17 Date Recorded Body height Body mass index (BMI) Body weight Heart rate Body temperature Oxygen saturation Oxygen saturation in Arterial blood by Pulse oximetry Respiratory rate Systolic blood pressure Diastolic blood pressure Provider Name and Address Organization Details Last Updated DateTime 0 158.75 cm 35.1 kg/m2 39716.5 1 g 84 /min 97.1 [degF] 98 % 98 % 18 /min 135 mm[Hg] 96 mm[Hg] Delmi Gold [place] - [facility] 0 17:09:32 Date Recorded Body height Body mass index (BMI) Body weight Heart rate Body temperature Oxygen saturation Oxygen saturation in Arterial blood by Pulse oximetry Respiratory rate Systolic blood pressure Diastolic blood pressure Provider Name and Address Organization Details Last Updated DateTime 3 157.48 cm 36.8 kg/m2 51881.5 g 85 /min 97.2 [degF] 96 % 96 % 18 /min 116 mm[Hg] 87 mm[Hg] Kae Schmidt [place] - [facility] 3 15:46:19 Date Recorded Body height Body mass index (BMI) Body weight Heart rate Body temperature Oxygen saturation Oxygen saturation in Arterial blood by Pulse oximetry Respiratory rate Systolic blood pressure Diastolic blood pressure Provider Name and Address Organization Details Last Updated DateTime 3 157.48 cm 36.3 kg/m2 31949.4 4 g 101 /min 98.7 [degF] 98 % 98 % 18 /min 115 mm[Hg] 84 mm[Hg] Monique Alvarez [place] - [facility] 3 15:08:12 Date Recorded Body height Body mass index (BMI) Body weight Systolic blood pressure Diastolic blood pressure Provider Name and Address Organization Details Last Updated DateTime 11/02/2022 157.48 cm 36.8 kg/m2 26128.78 g 111 mm[Hg] 79 mm[Hg] Kae Schmidt [place] [facility] 3 15:36:45 Social History Question Answer Notes LastModified by Organizat ion Details LastModified Time Tobacco Smoking Status Never Smoker Delmi [place], [place] [facility] 05/05/2020 17:10:15 Do You Have An Advance Directive? No Information n ot available 05/05/2020 What Is Your Level Of Alcohol Consumption? Occasional [email or web address] Information not available 05/05/2020 In The 14 Days Before Symptom Onset, Have You Had Close Contact With A Laboratory-confirm ed COVID-19 While That Case Was Ill? Yes [email or web address] Information n ot available 09/14/2022 If Patient Spent Time In [facility] - Does The Patient Live In [facility]? No [email or web address] Information not available 09/14/2022 In The 14 Days Before Symptom Onset, Have You Had Close Contact With A Person Who Is Under Investigation For COVID-19 While That Person Was Ill? Yes [email or web address] Information not available 09/14/2022 In The 14 Days Before Symptom Onset, Did The Patient Spend Time In [facility]? No Information not available 09/14/2022 Have You Been To An Area Known To Be High Risk For COVID-19? No [email or web address] Information not available 09/14/2022 How Much Tobacco Do You Smoke? No [email or web address] Information not available 05/05/2020 Sex: Female Functional Status None recorded. Mental Status None recorded. Family History Relationship Description Onset Age of this Age Resolved Age Notes LastModified by Organization Details LastModified Time Father No current problems or disability [email or web address] Not available 05/05 17:10:29 Mother No current problems or disability [email or web address] Not available 05/05 17:10:29 Medical History Condition Response Coronary Artery Disease N Gout N Kidney Stones N Hyperthyroidism N Erectile Dysfunction N Colonoscopy N Depression N COPD N Hypothyroidism N Developmental or Behavioral Disorders N Has Pacemaker N Diabetes - Non-insulin N Eczema, Hives or other skin conditions N Anxiety Disorder N Muscle, Joint, or Bone Problems N Vision or Eye Problems N Arthritis N Congenital Anomalies N Cancer N Stroke N Bladder or Kidney Problems N High Cholesterol N Liver Disease N Fibromyalgia N Dialysis N Kidney Disease N Ear or Hearing Problems N Leg/Foot Ulcer N Hypogonadism N ADD or ADHD N Thyroid Problems N Skin Problems N Anemia N Constipation N Blood Clots or DVT N Diabetes N Bleeding Disorder N Seizures/Epilepsy N Tuberculosis N Diabetes - Insulin N Diverticulitis N Heart Attack N Asthma N Allergies N GERD/Reflux N Heart Disease N Pulmonary Embolism N Hypertension N Osteoporosis N Gynecological HistoryNo gynecological history recorded. Obstetrics History GPAL:G 0 P 0 0 0 0 Past Encounters Encounter ID Performer Location Encounter Start Date Encounter Closed Date Diagnosis/Indication Diagnosis SNOMED-CT Code Diagnosis ICD10 Code Diagnosis Note [id number] Cody Verdugo MD [facility] [place] [address] [facility] [address] [place] [address] 04/30/2020 15:04:14 04/30/2020 16:17:07 Exposure to SARS-CoV-2 648256018 Z20.828 Exposed to Covid Covid negative Advised via PC also advised to take daily Vitamin D supplement [id number] Lai Kaiser PA-C [facility] [address] [place] [id number] 05/05/2020 15:49:31 06/12/2020 22:23:26 Exposure to SARS-CoV-2 402497838 Z20.828 Risk of ex posure to communicable disease 020325188 Z20.9 Suspected COVID-19 73453 4004 Z20.828 Medical ex amination for suspected condition 624613107 Z03.89 Exposure t o communicable disease 423965323 Z20.9 Suspected coronavirus infection 813602959 Z03.89 Body mass index 30+ - obesity 884085517 Z68.35 MEDICAL CONDITION STATUS AND ANY APPROPRIAT E MEDICATION REVIEW/REF ILL/INITIA TION, LAB VALUE ANALYSIS, IMAGING, ANCILLARY DATA, SPECIALTY CONSULTATI ON RECORDS, ETC....REV IEWED AND DISCUSSED WITH PATIENT AND CURRENT STATUS OF MEDICAL CONDITION IS DEEMED STABLE.... MEDICATION HAS BEEN REVIEWED WITH PATIENT AND PATIENT IS TOLERATING THE MEDICATION WITHOUT PROBLEM(S) OR NOTED ADVERSE REACTION(S ). THE PTS MED LIST HAS BEEN REVIEWED, THERE IS NO EVIDENCE OF POSSIBLE SIGNIFICAN T DRUG-TO-DR ELTON SMALLS, AND APPROPRIAT E LAB(S) HAVE BEEN REVIEWED, IF APPLICABLE . PATIENT IS IN AGREEMENT TO CONTINUING THE MEDICATION PRESCRIBED . 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 MEDICATION HAS BEEN REVIEWED WITH PATIENT AND PATIENT IS TOLERATING THE MEDICATION WITHOUT PROBLEM(S) OR NOTED ADVERSE REACTION(S ). THE PTS MED LIST HAS BEEN REVIEWED, THERE IS NO EVIDENCE OF POSSIBLE SIGNIFICAN T DRUG-TO-DR ELTON SMALLS, AND APPROPRIAT E LAB(S) HAVE BEEN REVIEWED, IF APPLICABLE . PATIENT IS IN AGREEMENT TO CONTINUING THE MEDICATION PRESCRIBED . Hypothyroidism 52272288 E03.9 MEDICAL CONDITION STATUS AND ANY APPROPRIAT E MEDICATION REVIEW/REF ILL/INITIA TION, LAB VALUE ANALYSIS, IMAGING, ANCILLARY DATA, SPECIALTY CONSULTATI ON RECORDS, ETC....REV IEWED AND DISCUSSED WITH PATIENT AND CURRENT STATUS OF MEDICAL CONDITION IS DEEMED STABLE.... MEDICATION HAS BEEN REVIEWED WITH PATIENT AND PATIENT IS TOLERATING THE MEDICATION WITHOUT PROBLEM(S) OR NOTED ADVERSE REACTION(S ). THE PTS MED LIST HAS BEEN REVIEWED, THERE IS NO EVIDENCE OF POSSIBLE SIGNIFICAN T DRUG-TO-DR ELTON SMALLS, AND APPROPRIAT E LAB(S) HAVE BEEN REVIEWED, IF APPLICABLE . PATIENT IS IN AGREEMENT TO CONTINUING THE MEDICATION PRESCRIBED . Viral syndrome 909166554 B34.9 MEDICAL CONDITION STATUS AND ANY APPROPRIAT E MEDICATION REVIEW/REF ILL/INITIA TION, LAB VALUE ANALYSIS, IMAGING, ANCILLARY DATA, SPECIALTY CONSULTATI ON RECORDS, ETC....REV IEWED AND DISCUSSED WITH PATIENT AND CURRENT STATUS OF MEDICAL CONDITION IS DEEMED STABLE.... MEDICATION HAS BEEN REVIEWED WITH PATIENT AND PATIENT IS TOLERATING THE MEDICATION WITHOUT PROBLEM(S) OR NOTED ADVERSE REACTION(S ). THE PTS MED LIST HAS BEEN REVIEWED, THERE IS NO EVIDENCE OF POSSIBLE SIGNIFICAN T DRUG-TO-DR ELTON SMALLS, AND APPROPRIAT E LAB(S) HAVE BEEN REVIEWED, IF APPLICABLE . PATIENT IS IN AGREEMENT TO CONTINUING THE MEDICATION PRESCRIBED . Nasal congestion 7375312 0 R09.81 MEDICAL CONDITION STATUS AND ANY APPROPRIAT E MEDICATION REVIEW/REF ILL/INITIA TION, LAB VALUE ANALYSIS, IMAGING, ANCILLARY DATA, SPECIALTY CONSULTATI ON RECORDS, ETC....REV IEWED AND DISCUSSED WITH PATIENT AND CURRENT STATUS OF MEDICAL CONDITION IS DEEMED STABLE.... MEDICATION HAS BEEN REVIEWED WITH PATIENT AND PATIENT IS TOLERATING THE MEDICATION WITHOUT PROBLEM(S) OR NOTED ADVERSE REACTION(S ). THE PTS MED LIST HAS BEEN REVIEWED, THERE IS NO EVIDENCE OF POSSIBLE SIGNIFICAN T DRUG-TO-DR ELTON SMALLS, AND APPROPRIAT E LAB(S) HAVE BEEN REVIEWED, IF APPLICABLE . PATIENT IS IN AGREEMENT TO CONTINUING THE MEDICATION PRESCRIBED . Diarrhea 85878313 R19.7 MEDICAL CONDITION STATUS AND ANY APPROPRIAT E MEDICATION REVIEW/REF ILL/INITIA TION, LAB VALUE ANALYSIS, IMAGING, ANCILLARY DATA, SPECIALTY CONSULTATI ON RECORDS, ETC....REV IEWED AND DISCUSSED WITH PATIENT AND CURRENT STATUS OF MEDICAL CONDITION IS DEEMED STABLE.... MEDICATION HAS BEEN REVIEWED WITH PATIENT AND PATIENT IS TOLERATING THE MEDICATION WITHOUT PROBLEM(S) OR NOTED ADVERSE REACTION(S ). THE PTS MED LIST HAS BEEN REVIEWED, THERE IS NO EVIDENCE OF POSSIBLE SIGNIFICAN T DRUG-TO-DR ELTON SMALLS, AND APPROPRIAT E LAB(S) HAVE BEEN REVIEWED, IF APPLICABLE . PATIENT IS IN AGREEMENT TO CONTINUING THE MEDICATION PRESCRIBED . Vomiting [id number] R11.1 0 MEDICAL CONDITION STATUS AND ANY APPROPRIAT E MEDICATION REVIEW/REF ILL/INITIA TION, LAB VALUE ANALYSIS, IMAGING, ANCILLARY DATA, SPECIALTY CONSULTATI ON RECORDS, ETC....REV IEWED AND DISCUSSED WITH PATIENT AND CURRENT STATUS OF MEDICAL CONDITION IS DEEMED STABLE.... MEDICATION HAS BEEN REVIEWED WITH PATIENT AND PATIENT IS TOLERATING THE MEDICATION WITHOUT PROBLEM(S) OR NOTED ADVERSE REACTION(S ). THE PTS MED LIST HAS BEEN REVIEWED, THERE IS NO EVIDENCE OF POSSIBLE SIGNIFICAN T DRUG-TO-DR ELTON SMALLS, AND APPROPRIAT E LAB(S) HAVE BEEN REVIEWED, IF APPLICABLE . PATIENT IS IN AGREEMENT TO CONTINUING THE MEDICATION PRESCRIBED . Headache 48108033 R51.9 MEDICAL CONDITION STATUS AND ANY APPROPRIAT E MEDICATION REVIEW/REF ILL/INITIA TION, LAB VALUE ANALYSIS, IMAGING, ANCILLARY DATA, SPECIALTY CONSULTATI ON RECORDS, ETC....REV IEWED AND DISCUSSED WITH PATIENT AND CURRENT STATUS OF MEDICAL CONDITION IS DEEMED STABLE.... MEDICATION HAS BEEN REVIEWED WITH PATIENT AND PATIENT IS TOLERATING THE MEDICATION WITHOUT PROBLEM(S) OR NOTED ADVERSE REACTION(S ). THE PTS MED LIST HAS BEEN REVIEWED, THERE IS NO EVIDENCE OF POSSIBLE SIGNIFICAN T DRUG-TO-DR ELTON SMALLS, AND APPROPRIAT E LAB(S) HAVE BEEN REVIEWED, IF APPLICABLE . PATIENT IS IN AGREEMENT TO CONTINUING THE MEDICATION PRESCRIBED . [id number] MD Kavitha Roy_ [place] G[place] [address] [facility] [address] [place] [id number] 09/14/2022 15:18:31 09/14/2022 16:17:26 Onychomycosis 212964931 B35.1 possible onychomyco sis of several finger nailswill have her bring in a nail for culture but get started on terbinafin e nowHFP at 6 weeks and follow up to see if need to continuePt in agreement with plan and indicated understand ing. All questions answered. [id number] MD Kavitha Moyer_ [place] [address] [facility] [address] [id number] 10/02/2022 14:47:41 10/04/2022 02:53:19 Acute sinusitis 76628212 J01.90 f/u with PCP to ensure resolvedgo to ED if worsen Nasal congestion 4606270 0 R09.81 Cough 46625109 R05.9 [id number] MD Kavitha Roy_ [place] [address] [facility] [address] [id number] 11/02/2022 15:21:17 11/02/2022 16:14:56 Onychomycosis 312421801 B35.1 culture positive for penicilliu m and camille- treated successful ly with terbinafin e Non-alcoho lic fatty liver 881464642 K76.0 pt reports history of thisLFTs ALT 34 and AST 50pt will share labs with her doctor to compare prior Insomnia 783984205 G47.0 0 struggling to fall asleep - stress of her son's deployment and his friend being ollie humphries has worked for her in the past, will give a small supplydisc ussed behavioral modificati ons and also trying melatonin Health Concerns Section Related Observation LastModified by Organization Detai ls LastModified Time None Recorded Concern Status LastModified by Organization Details LastModified Time None Recorded Advance Directives Directive N: Payers Encounter Date Sequence Insurance Name Policy Number Policy Fox Covered Member ID Fox Member ID Guarantor Name 04/30/[address] [facility] [id number] Patricia Luebbers [id number] Patricia Luebbers 05/05/[address] [facility] [id number] Patricia Luebbers [id number] Patricia Luebbers 09/14/[address] [facility] [id number] Patricia Luebbers [id number] Patricia Luebbers 10/02/[address] [facility] [id number] Patricia Luebbers [id number] Patricia Luebbers 11/02/[address] [facility] [id number] Patricia Luebbers [id number] Patricia Luebbers Notes Date Note Type Note Provider Name and Address Organization Details Recorded Time 04/30/2020 text/html COVID-19 Symptom s October 2019Reported bypatient.COVID-19 Signs and Symptomscough resolved; fever resolved; shortness of breath resolved; chills resolved; repeated shaking with chills resolved; muscle pain resolved; headache resolved; sore throat resolved; loss of taste or smell resolved; vomiting or diarrhea resolved; fatigue resolved; anorexia resolved Associated Symptoms:no sputum production; no wheezing; no runny nose; no vomiting; no diarrhea; no body aches; no nausea; no change in mental status; no hypotension; no tachycardiaNotes: NO SX- POSSIBLE EXPOSURE Cody seymour [facility] 04/30/2020 16:08:14 05/05/2020 text/html COVID-19 Symptom s October 2019Reported bypatient.COVID-19 Signs and Symptomsheadache same; vomiting or diarrhea same Contacts and Exposureclose contact with a confirmed or suspected case of COVID-19; close proximity with person with COVID-19 Associated Symptoms:no sputum production; no wheezing; no vomiting; no body aches; no nausea; no change in mental status; no hypotension; no tachycardia;diarrhea; runny nose PATIENT PRESENTS TODAY TO DISCUSS POSSIBLE COVID SYMPTOMS OF CONGESTION, DIARRHEA, HEADACHE, VOMITING, AND POSSIBLE COVID TESTING AND KNOWN COVID EXPOSURE 04/26 TO HER SON, WITH FOLLOW UP CARE INCLUDING MEDICATION PRESCRIBING/MONITORIN G, LABORATORY AND RADIOGRAPHIC ANALYSIS/INTERPRETATI ON REGARDING A PAST MEDICAL HISTORY OF ELEVATED BLOOD PRESSURE, HYPOTHYROIDISM, MIXED ANXIETY AND DEPRESSIVE DISORDER, AND OBESITY. Lai Kaiser PA-C [address] [place], [address], [facility] 05/09/2020 09:36:15 09/14/2022 text/html Pt presents to [facility] for possible infection on finger nails. had her nails done prior to easter Reports she's on an antibiotic for toe infection. Opal Borjas MD [address] [place] [address], [id number], [facility] 09/14/2022 16:10:48 10/02/2022 text/html Upper Respirator y SymptomsReported bypatient.Quality:pro ductive cough;congested Associated Symptoms:no sputum production; no shortness of breath; no wheezing; no change in number of pillows needed to sleep at night; no sweats; no significant weight gain; no significant weight loss; no morning cough; no sore throat; no vomiting; no diarrhea; no rash; no nausea Dolly seymour, [facility] 10/03/2022 07:50:36 11/02/2022 text/html Pt presents to [facility] for F/U on labs Opal Borjas MD [address] [place], [address], [facility] 11/02/2022 16:01:06 OBGyn Episode No OBEpisode recorded.
--- OUTSIDE RECORDS SUMMARY | 2024-10-07 08:54 | XMS_ITS | Data Portability ---
Author Organization [place] [facility] Admin Address [address] [place] [id number] Assessment Encounter Date Assessment Date Assessment LastModified by Organization Details LastModified Time 08/22/2021 08/22/2021 IMPRESSION: Left forearm dog bite PLAN: previous imaging reviewed. Discussed with patient the possibility of infection with dog bite. She has been taking antibiotics, however, I would recommend that she continue with antibiotics for 10 more days. These are prescribed. She is educated on signs of infection and will let us know if she suspects any of these. Discussed with patient that she has marked swelling due to the injury the forearm. I am not surprised that she has discomfort with motion. She does seem to have a slight lag of the ring finger, however she does demonstrate motion with extension of the ring, just not quite as much as compared to the other digits. She may have sustained some injury to the muscle belly, however, do not suspect hole laceration of the tendon. Discussed possibility of going in for surgery to clean out the area and to look for anything that could be repaired, however, I do not suspect that anything is requiring repair at this time. Recommend bracing as needed to support the wrist, but she declines this. She will take it easy with the arm. I suspect that the swelling, bruising, and discomfort in the forearm will get better with time. Discussed with patient that I would normally see her back in 1-2 weeks to recheck everything and make sure that there is no worsening infection and to recheck the lag of the finger. Encouraged her to follow-up with ortho once she arrives [place] home. *Portions of this note may be dictated using M*Modal voice recognition software. Variances in spelling and vocabulary are possible and unintentional. [email or web address] Not available 09/15/2021 16:29:40 Plan of Treatment Reminders Order Date Submit Date Provider Last Modified By Organization Details Last Modified Time Details Appointments None recorded. Lab None recorded. Referral None recorded. Procedures None recorded. Surgeries None recorded. Imaging None recorded. Medication Orders amoxicillin 875 mg-potassiu m clavulanate 125 mg tablet 2021 022 [id number], [address], [place], [place], [id number], 15:03:58 Patient TargetsNo targets recorded. Patient InstructionsNo instructions recorded. Reason for Referral None Reported. Problems Name Problem SNOMED Code Status Onset Date Resolution Date Notes Provider Name and Address Organization Details Recorded Time Dog bite - wound 116193385 Active 022 Judah seymour [facility] 08/22/2021 14:26:28 Problem Notes None recorded. Medical Equipment None Reported. Allergies Allergen ID Allergen Name Allergen Category Reaction Reaction Severity Criticality Documentation Date Start Date Code Code System Note Provider Name and Address Organization Details Recorded Time 203532 oxycodone medicatio n rash mild Not available 08/22/20212020 7804 [facility] Judah Mandeep seymour, [place] - [facility] 2 14:25:46 976798 acetamino phen / oxycodone medicatio n rash Not available Not available 08/22/2021 55196 3 RxNorm Judah Mandeep seymour, [place] - [facility] 2 14:25:59 419284 Substance with sulfonami de structure and antibacte rial mechanism of action (substanc e) medicatio n hives Not available Not available 08/22/2021 81647 8003 SNOMED Judah Mandeep seymour, [facility] 14:26:11 Medications Name Sig Start Date Stop Date Status Note LastModified by Organization Details LastModified Time Augmentin 875 mg-125 mg tablet 1 {tbl} every 12 hours by oral route. 08/25 completed Not Available Not Available Not Available tramadol 50 mg tablet 50 mg by oral route. 08/21 completed Not Available Not Available Not Available levothyroxine 75 mcg tablet 75 ugs by oral route. active Not Available Not Available No t Available duloxetine 60 mg capsule,delaye d release 60 mg by oral route. active Not Available Not Available No t Available Vitals Date Recorded Body height Body mass index (BMI) Body weight Provider Name and Address Organization Details Last Updated DateTime 08/22/2021 156.21 cm 37.4 kg/m2 75386.07 g Judah Kaufman [place] - [facility] 08/22/2021 14:25:21 Social History Question Answer Notes LastModified by Organization D etails LastModified Time What Is Your Occupation? 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 Mental Status None recorded. Family History Nothing Reported. Medical History No medical history recorded. Gynecological HistoryNo gynecological history recorded. Obstetrics History GPAL:G 0 P 0 0 0 0 Past Encounters Encounter ID Performer Location Encounter Start Date Encounter Closed Date Diagnosis/Indication Diagnosis SNOMED-CT Code Diagnosis ICD10 Code Diagnosis Note [id number] Lai Saeed MD [facility] [place] [address] [place] [address] 08/22/2021 13:50:03 08/22/2021 15:22:03 Open wound of left forearm due to dog bite [id number] 3152776 S51.852A Health Concerns Section Related Observation LastModified by Organization Detai ls LastModified Time None Recorded Concern Status LastModified by Organization Details LastModified Time None Recorded Advance Directives Directive None Recorded Payers Encounter Date Sequence Insurance Name Policy Number Policy Fox Covered Member ID Fox Member ID Guarantor Name 08/22/2021 1 [facility] [id number] Dafne Cornejo Raul [id number] Dafne Cornejo Raul Notes Date Note Type Note Provider Name and Address Organization Details Recorded Time 08/22/2021 text/html Ms. Dafne Cornejo is a Left-hand dominant 60 yo female Presents today for injury to the left forearm. On 08/17/2021, her son's dog bit her arm when she was breaking up fight between the son's dog and his roommate's Dog. Reported to have been vaccinated for rabies. Son reported to clean the wounds thoroughly prior to going to the ED. She presented to the ED 08/17/2021. Decreased Movement of the ring finger. Unremarkable x-ray. Tetanus up-to-date. Prescribed tramadol and 7 day course of Augmentin. Today, patient is 5 days from date of injury. Reports tenderness in the left forearm. Pain is 3/10. Reports continued mild swelling. No numbness or tingling. No fever or chills. No marked erythema. Has been taking the Augmentin as prescribed. She continues to be concerned about decreased mobility of the left ring finger. however, on ed note, describes difficulty with motion of fifth digit. She continues to have issues with extension of ring. Patient is from [place] and is going home in 1 week. No history of diabetes. Nonsmoker. No issues with infection previously. No history of MRSA. Does not take any steroids. Overall healthy. X-ray radius ulna left AP and lateral Result Date: 08/17/2021TWO VIEW LEFT FOREARM: COMPARISON: No comparison. FINDINGS: No acute fractures or dislocations are present. No destructive osseous lesions are present. The soft tissues are normal. IMPRESSION: NO ACUTE ABNORMALITY. Electronically Signed By: Herman Martinez MD 08/17/2021 15:38 Ysabel Diehl PA-C [address], [place], [address], [facility] 09/15/2021 16:29:55 OBGyn Episode No OBEpisode recorded.
--- OUTSIDE RECORDS SUMMARY | 2024-10-07 08:54 | XMS_ITS | Clinical Summary ---
Author Organization [facility] at the [facility] Address [address] [place] [address] Care Team Providers Care Section Leader Name Role Phone Melisa Cannon MD Primary [...] age to complete this topic Insurance [address] [place] [id number] [facility] CHOICE PLUS Member Subscriber Plan / Payer (Ef fective 2023-Present) Name:Dafne Carter Relation to Subscriber:Self Name:Dafne Carter Payer ID:[id number] (NAIC) Type:[facility] HMO/PPO Address: [place] [phone] Care Teams Section Leader Relationship Specialty Start Date End Date Melisa Cannon MD [address] [place] [address] [address] PCP - General Family Medicine 02/15/24
--- OUTSIDE RECORDS SUMMARY | 2024-10-07 08:54 | XMS_ITS | Referral Summary ---
Author Organization [facility] at the [facility] Address [address] [place] [address] Care Team Providers Care Textile Examiner Name Role Phone Melisa Cannon MD Primary [...] Insurance [address] [place] [id number] [facility] CHOICE PLUS [facility] HMO/PPO Address: [facility] [id number] [place] [id number] Care Teams Textile Examiner Relationship Specialty Start Date End Date Melisa Cannon MD [address] [place] [address] [place] [address] PCP - General Family Medicine 02/15/24
--- OUTSIDE RECORDS SUMMARY | 2024-10-07 08:54 | XMS_ITS | Continuity of Care Document ---
Author Organization [facility] Address [address] [place] [address] Phone Care Team Providers Care Dump Truck Driver Off Highway Name Role Phone JAYLON DAVE MD Unavailable [...] [facility], [address], [place], [address], [place] tel:[phone] [facility] knee pain equally on both sides (chief complaint) Primary osteoarthriti s of both kneesObesity (BMI 30-39.9) 6 TENZIN IYER. [address] [facility], [address], [place], [place], [id number], [place]. tel:[phone] [facility], [address], [place], [place], [address], [place] tel:[phone] PHYSICAL THERAPY OFFICE No Information 6 Nell Dykes. [address] [facility], [address], [place], [address], [place]. tel:[phone] Referring Provider: JAYLON Han, [address], [place], [place], . tel:[phone] [facility], [address], [place], , [place] tel:[phone] PHYSICAL THERAPY OFFICE No Information 9-201 6 Camejo DPT Jania. [address], [address], [place], [place], , [place]. tel:[phone] Referring Provider: JAYLON Han, [address], [place], [place], . tel:[phone] [facility], [address], [place], , [place] tel:[phone] PHYSICAL THERAPY OFFICE No Information 2-201 6 Camejo DPT Jania. [address], [address], [place], , [place]. tel:[phone] Referring Provider: JAYLON Han, [address], [place], . tel:[phone] [facility], [address], [place], , [place] tel:[phone] PHYSICAL THERAPY OFFICE No Information -201 6 Camejo DPT Jania. [address], [address], [place], , [place]. tel:[phone] Referring Provider: JAYLON Han, [address], [place], . tel:[phone] [facility], [address], [place], , [place] tel:[phone] PHYSICAL THERAPY OFFICE No Information 1-201 6 Camejo DPT Jania. [address], [address], [place], , [place]. tel:[phone] Referring Provider: JAYLON Han, [address], [place], . tel:[phone] [facility], [address], [place], [place], [id number], [place] tel:[phone] PHYSICAL THERAPY OFFICE No Information 6 Camejo DPT Jania. [address] [facility], [address], [place], , [place]. tel:[phone] Referring Provider: JAYLON Han, [address] [facility] [address], [place], . tel:[phone] [facility], [address], [place], , [place] tel:[phone] PHYSICAL THERAPY OFFICE No Information 6 Camejo DPT Jania. [address] [facility], [address], [place], , [place]. tel:[phone] Referring Provider: JAYLON Han, [address] [facility] [address], [place], . tel:[phone] [facility], [address], [place], [place], [address], [place] tel:[phone] PHYSICAL THERAPY OFFICE No Information 6 Camejo DPT Jania. [address] [facility], [address], [place], , [place]. tel:[phone] Referring Provider: JAYLON Han, [address] [facility] [address], [place], . tel:[phone] NEW PATIENT OFFICE VISIT- LEVEL 3 [facility], [address], [place], [place], [address], [place] tel:[phone] [facility] left knee pain (chief complaint) XRAY ORDERPrimary osteoarthriti s of both kneesObesity (BMI 30-39.9) 6 TENZIN IYER. [address] [facility], [address], [place], [place], [address], [place]. tel:[phone] Referring Provider: JAYLON Han, [address] [facility] [address], [place], [address] . tel:[phone] Family History Family Member Type Diagnosis Age At Onset Mother Problem (finding) depression 20 Father Problem (finding) hypertension 50 Mother Problem (finding) hypertension 50 Mother Problem (finding) Cardiovascular disease 76 Mother Problem (finding) alzheimer's disease 76 Father Problem (finding) cancer of colon 63 Mother Problem (finding) Mental illness 20 Payers Payer name Insurance type Covered democrat ID Christos pierce(s) [facility] [id number] Social History Type Description Quantity Date Captured [...] 30-39.9)) ordered Referral Referred To: [facility] [address] [place] [address]
[address] [place], [phone] Ordered: Referrals: [facility]. Evaluate and treat [...] Mental Status Date Cognitive Assessment Orientation - [place] ed to time, place, person, situation. Patient Care Teams Name Effective Dates (start - stop) Status Members No Information
[2024-10-07 13:17] LABS: Alanine Aminotransferase 79 U/L (6-35); Albumin Level 4.4 g/dL (3.5-5.1); Alkaline Phosphatase 95 U/L (38-126); Aspartate Amino Transferase 65 U/L (14-36); Bilirubin,Total 0.6 mg/dL (0.2-1.3)
== END 2024-10-07 08:35 | disposition home or self-care (01) ==
LOC: ANHGOSHLAB 08:35
PROVIDERS: PCP Family Medicine; Visit Provider Family Medicine
DX: R74.01 Elevation of levels of liver transaminase levels (principal)
CPT/HCPCS: 36415; 80076

== ENCOUNTER 2024-10-14 09:55 | Outpatient (CLI) | payer OTHER, SELFPAY ==
--- NOTE | ~2024-10-14 | US_ITS ---
Limited Abdominal Sonogram: Real-time sonographic imaging of the right upper quadrant was performed. Clinical History: Abnormal liver function studies Findings: The liver appears normal with no evidence of mass lesion or bile duct dilatation. Main por steve vein demonstrates normal direction of flow. The gallbladder is well distended, and appears normal with no evidence of gallstone or wall thickening. The common bile duct measures 4 mm. The visualize d pancreas, aorta, and IVC are unremarkable. Impression: No significant abnormality seen. Reviewed, dictated and finalized at location M. Impression: No significant abnormality seen.
== END 2024-10-14 09:56 | disposition home or self-care (01) ==
PROVIDERS: PCP Family Medicine; Visit Provider Family Medicine
DX: R94.5 Abnormal results of liver function studies (principal); K76.0 Fatty (change of) liver, not elsewhere classified
CPT/HCPCS: 76705

== ENCOUNTER 2024-10-14 15:47 | Outpatient (CLI) | payer OTHER, SELFPAY ==
--- OUTSIDE RECORDS SUMMARY | 2024-10-14 15:50 | XMS_ITS | Data Portability ---
Author Organization [facility] Office Address [address] [address] Care Team Providers Care It Generalist Name Role Phone DEMETRIS CHAU Primary Care Provider JULISA CAVAZOS Bariatric Surgeon [phone] ABBY ESTEVES Province Archivist JULISA CAVAZOS Attic Fans Mechanic Assessment No assessment recorded. Plan of Treatment Reminders Order Date Submit Date Provider Last Modified By Organization Details Last Modified Time Details Appointments None recorded. Lab lipid panel, serum 2017 018 Not available 8 08:51:47 CMP, serum or plasma 2017 018 [email or web address] Not available 8 08:59:17 HbA1c (hemoglobin A1c), blood 2017 018 [email or web address] Not available 8 08:51:48 Referral None recorded. Procedures upper endoscopy procedure (EGD) (PROC) 2017 018 [email or web address] Not available 8 08:39:37 Surgeries None recorded. Imaging electrocard iogram 2018 019 [email or web address] In-Office Order, Internal Use Only DO Not Attach Compendium DO Not Attach Compendium, Do Not Delete/merge, [id number] 9 14:06:38 electrocard iogram 2017 018 [email or web address] In-Office Order, Internal Use Only DO Not Attach Compendium DO Not Attach Compendium, Do Not Delete/merge, [id number] 8 15:34:54 electrocard iogram 2017 018 [email or web address] In-Office Order, Internal Use Only DO Not Attach Compendium DO Not Attach Compendium, Do Not Delete/merge, [id number] 8 11:23:58 US, echocardiog surya, transthorac ic, complete, w/ color flow 2017 018 DIANNA In-Office Order, Internal Use Only DO Not Attach Compendium DO Not Attach Compendium, Do Not Delete/merge, [id number] 8 05:01:33 Medication Orders pantoprazol e 40 mg tablet,feli yed release 2017 018 [email or web address] Not available 8 11:28:47 Patient TargetsNo targets recorded. Patient Instructions Encounter Date Encounter Id Patient Instructions Last Modified By Organization Details Last Modified Time 08/10/2017 [id number] When You Want to Lose Weight: Care [...] instructions jyager Not available 08/10/2017 12:07:04 08/16/2017 [id number] 1. Continue PPI daily 2. Repeat EGD in 09/2017 to check for resolution of gastric ulcers before proceeding with RYGBP 3. Repeat colonoscopy in 3 yrs esteban Not available 08/16/2017 11:23:00 09/10/2017 [id number] shortness of breath: care instructions jyager Not available 09/10/2017 17:49:50 11/07/2017 [id number] palpitations: care instructions jyager Not available 11/07/2017 11:51:14 When You Want to Lose Weight: Care Instructions jyager Not available 11/07/2017 11:51:14 high cholesterol : care instructions jyager Not available 11/07/2017 11:51:14 sleep apnea: car e instructions jyager Not available 11/07/2017 11:51:14 high blood pressure: care instructions jyager Not available 11/07/2017 11:51:14 learning about high blood pressure jyager Not available 11/07/2017 11:51:14 11/06/2018 [id number] sleep apnea: car e instructions jyager Not [...] [email or web address] Not Available 2017 13:53:14 08/11/19 18 [facility] am No observ ation record ed. [email or web address] In-Office Order Internal Use Only DO Not Attach Compendium DO Not Attach Compendium, Do Not Delete/merge, [id number] 08/10/2017 13:47:50 09/20/19 18 09/13/2017 imagi ng/di agnos tic resul t No observ ation record ed. [email or web address] Not Available 2017 16:18:23 11/08/19 18 [facility] am No observ ation record ed. [email or web address] In-Office Order Internal Use Only DO Not Attach Compendium DO Not Attach Compendium, Do Not Delete/merge, [id number] 11/07/2017 11:54:23 11/08/19 19 11/06/2018 [facility] am No observ ation record ed. [email or web address] In-Office Order Internal Use Only DO Not Attach Compendium DO Not Attach Compendium, Do Not Delete/merge, [id number] 11/07/2018 14:31:29 Result Notes None recorded. Problems Name Problem SNOMED Code Status Onset Date Resolution Date Notes Provider Name and Address Organization Details Recorded Time Body mass index 40+ - severely obese 232564106 Active Alvin seymour, [facility] 6 08:26:38 Vitamin B deficiency 57990196 Active Alvin Lomax null, [facility] 6 08:26:38 Vitamin D deficiency 65337105 Active MD [address], [place], [address], [facility] 6 09:32:47 Cobalamin deficiency 889907026 Active MD [address], [place], [address], [facility] 6 09:32:47 Pre-surger y evaluation Active 2017 Jenae Kwong [facility] 8 11:26:45 Dyspnea 843671314 Active 2017 Kerri White [facility] 8 13:39:05 Screening for malignant neoplasm of colon Active 2013 ENTERED BY: MONA OLMEDO PA-C; SIGNED BY: MONA OLMEDO PA-C Alvin seymour, [facility] 6 08:26:38 Family history of polyp of colon 051825509 Active 2013 ENTERED BY: MONA OLMEDO PA-C; SIGNED BY: MONA OLMEDO PA-C Avlin seymour, [facility] 6 08:26:38 Family history of malignant neoplasm of gastrointe stinal tract 161590365 Active 2013 ENTERED BY: MONA OLMEDO PA-C; SIGNED BY: MONA OLMEDO PA-C Alvin seymour, [facility] 6 08:26:38 Hypertensi ve disorder 36254525 Active MD [address], [place], [address], [facility] 6 09:32:47 Impaired fasting glycemia 878169413 Active MD [address], [place], [address], [facility] 6 09:32:47 Obesity 550922086 Active MD [address], [place], [address], [facility] 6 09:32:47 Knee pain Active Alvin seymour, [facility] 6 08:26:38 Hypertrigl yceridemia 762090906 Active Alvin seymour, [facility] 6 08:26:38 Problem Notes None recorded. Procedures Surgical History Date Name Laterality Status Provider Name and Address Organization Details Recorded Time 11/28/19 18 Gastric bypass for obesity completed Jamee Rojas [facility] 11/06/2018 11:29:18 09/11/19 18 Transthoracic Echocardiogram completed Abby Esteves MD, [facility] [address], [place], [address], [facility] 09/10/2017 17:49:17 05/04/20 15 Date of [facility] [place] [facility]2015 14:39:11 09/10/19 15 [facility] 14:39:11 09/03/19 15 Date of Last [facility] Smear [place] [facility] 09/23/2015 14:39:11 06/04/18 93 [facility] 09/23/2015 14:39:11 Other completed Maricarmen Winters [facility] 05/08/2017 15:03:19 Imaging Results Imaging Date Name Status LastModified by Organization Details LastModified Time 06/21/2017 imaging/diagnostic result completed [email or web address] Information not available 07/23/2017 13:53:14 08/10/2017 electrocardiogram completed [email or web address] In-Offi ce Order Internal Use Only DO Not Attach Compendium DO Not Attach Compendium, Do Not Delete/merge, [id number] 08/10/2017 13:47:50 09/13/2017 imaging/diagnostic result completed [email or web address] Information not available 09/19/2017 16:18:23 11/07/2017 electrocardiogram completed [email or web address] In-Offi ce Order Internal Use Only DO Not Attach Compendium DO Not Attach Compendium, Do Not Delete/merge, [id number] 11/07/2017 11:54:23 11/06/2018 electrocardiogram completed In-Offi ce Order Internal Use Only DO Not Attach Compendium DO Not Attach Compendium, Do Not Delete/merge, [id number] 11/07/2018 14:31:29 Procedure Notes None recorded. Medical Equipment None Reported. Allergies Allergen ID Allergen Name Allergen Category Reaction Reaction Severity Criticality Documentation Date Start Date Code Code System Note Provider Name and Address Organization Details Recorded Time 20231203 Substance with sulfonami de structure and antibacte rial mechanism of action (substanc e) medicatio n Not available Not available Not available 07/31/20142013 47252 8003 SNOMED SEVER ITY: CRITI VANESSA; Not Available [facility] 5 03:29:46 074599 acetamino phen / oxycodone medicatio n itching Not available Not available 09/23/2015 40525 3 [facility] 6 14:39:11 Medications Name Sig Start Date Stop Date Status Note LastModified by Organization Details LastModified Time carisopro dol 350 mg tablet PRN 2013 active BY: FLAKO CONWYA; SIGNED BY: MONA Dominguez PA-C; GENERIC: CARISOPR [...] AND 1/2 ML ( 20 MG) BY [facility] TWO TIMES A DAY 11/06 completed Not [...] SIGNED BY: MONA Dominguez PA-C; PHARMACY : [id number]* [id number] [id number] PH: FAX: ;DATE: 014; GENERIC: PEG 3350-KCL [...] Not Available Not Available Not Available Fluvirin 2824-9574 45 mcg (15 mcg x 3)/0.5 mL intramusc ular suspensio n VACCINAT ION ADMINIST ERED BY PHARMACI ST 05/08 completed Not Available Not Available Not Available Vitals Date Recorded Body height Body mass index (BMI) Body weight Heart rate Systolic blood pressure Diastolic blood pressure Provider Name and Address Organization Details Last Updated DateTime 8 159.004 cm 48.3 kg/m2 031768. 35 g 88 /min 126 mm[Hg] 80 mm[Hg] Jenae Kwong [facility] 8 11:35:08 Date Recorded Body height Body mass index (BMI) Body weight Heart rate Systolic blood pressure Diastolic blood pressure Provider Name and Address Organization Details Last Updated DateTime 8 159.004 cm 48.3 kg/m2 027250. 07 g 91 /min 127 mm[Hg] 78 mm[Hg] Maricarmen Winters [facility] 8 10:22:33 Date Recorded Body height Provider Name an d Address Organization Details Last Updated DateTime 09/10/2017 159.004 cm Kerri White [facility] 0 09/10/2017 13:39:07 Date Recorded Body height Body mass index (BMI) Body weight Heart rate Systolic blood pressure Diastolic blood pressure Provider Name and Address Organization Details Last Updated DateTime 8 159.004 cm 47.7 kg/m2 552472. 57 g 90 /min 100 mm[Hg] 70 mm[Hg] Carlee Tobias [facility] 8 11:32:04 Date Recorded Body height Body mass index (BMI) Body weight Provider Name and Address Organization Details Last Updated DateTime 11/06/2018 159.004 cm 31.4 kg/m2 75548.66 g Jamee Rojas [facility] 11/06/2018 11:23:34 Date Recorded Systolic blood pressure Diastolic blood pressure Provider Name and Address Organization Details Last Updated DateTime 11/06/2018 114 mm[Hg] 76 mm[Hg] Abby Esteves MD, [facility] [address], [place], [address], [facility] 11/06/2018 11:44:27 Social History Question Answer Notes LastModified by Organizat ion Details LastModified Time Tobacco Smoking Status Never Smoker Maria Isabel Jenkins, [facility] 09/23/2015 14:40:09 Do You Have An Advance [...] 11/07 11:21:36 Father Heart disease 74 of [place], had histor y of CHF and cardio [...] Hypertension (high blood pressure) Y Heart Attack ([place]) N Hypercholesterolemia (high cholesterol) Y Hepatic / [...] SNOMED-CT Code Diagnosis ICD10 Code Diagnosis Note [id number] [facility] [address] [place] [address] 07/11/2013 00:00:00 [id number] Rakesh Valdez MD [facility] [address] [place] [address] 09/23/2015 14:03:41 09/23/2015 15:20:44 Hypertensive disorder 15672068 I10 Impaired f asting glycemia 524901994 R73.01 Obesity 996822290 E66.01 Knee pain 70752696 M25.5 62 [id number] Rakesh Valdez MD [facility] [address] [place] [address] 09/30/2015 14:09:15 09/30/2015 15:04:40 Obesity 053692694 E66.01 Hypertensive disorder 38 171765 I10 Hypertriglyceridemia 302 726361 E78.1 BOWMAN will start Wt loss program [id number] Rakesh Valdez MD [facility] [address] [place] [address] 03/23/2016 15:09:23 03/23/2016 16:04:01 Body mass index 40+ - severely obese 286625207 Z68.43 Vitamin B deficiency 479 00967 E53.8 Hypertriglyceridemia 302 054805 E78.1 OBWMAN will start Wt loss program make fasting appointmen t Hypertensive disorder 38 944870 I10 metoprolol and HCTZ [id number] Rakesh Valdez MD [facility] [address] [place] [address] 04/11/2016 07:54:09 04/11/2016 09:09:32 Impaired fasting glycemia 246638105 R73.01 Hypertensive disorder 38 611462 I10 metoprolol and HCTZ Obesity 187112367 E66.01 Family his tory of combined hyperlipidemia 5748211260 9100 Z83.49 Vitamin D deficiency 347 24515 E55.9 Cobalamin deficiency 190 975083 E53.8 [id number] Rakesh Valdez MD [facility] [address] [place] [address] 05/10/2016 10:09:06 05/10/2016 11:29:46 Body mass index 40+ - severely obese 681866075 Z68.43 losing weight on current regimen without side effects Acquired hypothyroidism 307220535 E03.9 high TSH, low T4, no thyroid peroxidase antibodies . plan to start low dose replacemen t therapy and obtain thyroid U/S for further evaluation . 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 Acquired hypothyroidism 451206931 E03.8 [id number] Rakesh Valdez MD [facility] [address] [place] [address] 07/19/2016 09:16:22 07/19/2016 10:04:06 Body mass index 40+ - severely obese 456871746 Z68.43 losing weight on current regimen without side effects Cobalamin deficiency 190 058481 E53.8 [id number] Rakesh Valdez MD [facility] [address] [place] [address] 09/06/2016 11:32:20 09/06/2016 12:33:43 Obesity 049513000 E66.01 Vitamin B deficiency 479 80487 E53.8 Vitamin D deficiency 347 42376 E55.9 Impaired f asting glycemia 945479439 R73.01 Hypertriglyceridemia 302 236899 E78.2 BOWMAN will start Wt loss program make fasting appointmen t Acquired hypothyroidism 709331587 E03.8 high TSH, low T4, no thyroid peroxidase antibodies . plan to start low dose replacemen t therapy and obtain thyroid U/S for further evaluation . [id number] Debi Jade NP PM[facility]_GMA_F [facility] Office* [address] [place] [address] 05/08/2017 14:40:40 05/08/2017 15:39:24 Pre-surgery evaluation 365610013 Z01.818 Family his tory of cancer of colon 820628779 Z80.0 [id number] Abby Esteves MD, [facility] [address] [facility] [place] [address] 08/10/2017 11:18:36 08/10/2017 12:14:18 Preoperative cardiovascular examination 754806088 Z01.810 Low to intermedia te risk individual for intermedia te risk surgery. Normal ECG. No chest pain. Exercise tolerance >4 METS. May proceed with bariatric surgery from cardiac point of view. Timing of surgery TBD depending upon her success with her current weight loss program. Dyspnea 588291894 R06.02 Short of breath with stairs. At least in part from terence charlesg. Will plan for echocardio gram to evaluate LV function and pulmonary pressures. Essential hypertension 28044059 I10 Well controlled on current regimen. Hyperlipidemia 20300338 E78.5 Will check labs. Sleep apnea 97894503 G47 .30 Doing well with CPAP. Diabetes m ellitus screening 791754649 Z13.1 Will check HbA1c. Morbid obesity 226879551 E66.01 Losing weight with [employer]. [id number] Rylie Del Rosario, MAX-C PMG_GMA_F [facility] Office* [address] [facility],[address] [place] [address] 08/16/2017 09:57:46 08/16/2017 10:39:36 Gastric ulcer 440804234 K25.9 Family his tory of cancer of colon 049234675 Z80.0 History of polyp of colon 251995806 Z86.010 [id number] [facility] [address] [facility] [address] [place] [address] 09/10/2017 11:07:00 09/11/2017 08:26:16 Dyspnea 529898205 R06.02 Short of breath with stairs. [facility] Will plan for echocardio gram to evaluate LV function and pulmonary pressures. [id number] Abby Esteves MD, [facility] [address] [facility] [address] [place] [address] 11/07/2017 11:18:58 11/07/2017 12:01:46 Dyspnea 257782520 R06.02 Normal echocardio gram. Likely from [facility] poli. Preoperati ve cardiovascular examination 829934412 Z01.810 Low to intermedia te risk individual for intermedia te risk surgery. No chest pain. Normal ECG today. Exercise tolerance >4 METS. May proceed with bariatric surgery from cardiac point of view. Essential hypertension 26855484 I10 BP remains well controlled . Hyperlipidemia 25066439 E78.[address] Chua. Palpitations 70504860 R0 0.2 Well controlled with metoprolol . Sleep apnea 34479061 G47 .30 Using CPAP regularly. Morbid obesity 903393360 E66.01 Planning for bariatric surgery. [id number] Abby Esteves MD, [facility] [address] [facility] [place] [address] 11/06/2018 11:18:48 11/06/2018 11:48:44 Essential hypertension 18656403 I10 BP well controlled without medication . Continue healthy lifestyle. We can forward records to her new physicians in [place]. Encourage regular exercise. Hyperlipidemia 45309987 E78.[address] Chau. Palpitations 25682126 R0 0.2 Rare symptoms. Can use metoprolol as needed. We discussed that she should start with 25mg daily as needed. Sleep apnea 62965039 G47 .30 Using CPAP regularly. Obesity 109145691 E66.9 Continue current medication s. Health Concerns Section Related Observation LastModified by Organization Detai ls LastModified Time None Recorded Concern Status LastModified by Organization Details LastModified Time None Recorded Advance Directives Directive N: Payers Insurance Date Sequence Insurance Name Policy Number Policy Fox Covered Member ID Fox Member ID Guarantor Name 11/06/2018 1 [facility] [id number] Ubaldo Carter [id number] Dafne Carter Notes Date Note Type Note Provider [...] weeks ago and has lost 10 pounds. Abyb Esteves MD, [facility] [address], [place], [address], [facility] 08/10/2017 12:11:38 8 text/html 56 y/o female [...] in the descending colon. Rylie Del Rosario, [facility] [address], [place], [address], [facility] 08/16/2017 11:23:46 8 text/html HyperlipidemiaReported bypatient.Notes:Labs 06/2016 [...] up visit for palpitations. Abby Esteves MD, [facility] [address], [place], [address], [facility] 11/07/2017 11:51:20 9 text/html HyperlipidemiaReported bypatient.Notes:Labs 06/2016 [...] after gastric bypass surgery. Abby Esteves MD, [facility] [address], [place], [address], [facility] 11/06/2018 11:47:08 OBGyn Episode No OBEpisode recorded.
--- OUTSIDE RECORDS SUMMARY | 2024-10-14 15:50 | XMS_ITS | Continuity of Care Document ---
Author Organization [facility] Address [address], [address] [place] [address] Phone Care Team Providers Care Oil Seal Assembler Name Role Phone Unavailable Unavailable Unavailable Allergies, [...] Location Reason(s) For Visit Diagnoses Date Provider [facility], [address] , [address], [place], [id number] , [place] tel:[phone] [place] [facility] No Information 8 No Information PREV VISIT, EST, AGE 40-64 [facility], [address] , [address], [place], [id number] , [place] tel:[phone] [place] [facility] Annual Exam (chief complaint) Encntr for probe operator exam (general) (routine) w/o abn findings 8 No Information OFFICE/OUTPATI ENT VISIT, [facility], [address] , [address], [place], [id number] , [place] tel:[phone] [place] [facility] abnormal bleeding (chief complaint) Excessive or frequent menstruation 5 No Information OFFICE/OUTPATI ENT VISIT, [facility], [address] , [address], [place], [id number] , [place] tel:[phone] [place] [facility] abnormal bleeding (chief complaint) Dysfunctional uterine bleeding 4 No Information [facility], [address] , [address], [place], [id number] , [place] tel:[phone] [place] [facility] Surgery Follow-Up (chief complaint) Excessive or frequent menstruation 4 No Information OFFICE/OUTPATI ENT VISIT, [facility], [address] , [address], [place], [id number] , [place] tel:[phone] [facility] [place] [facility] abnormal bleeding (chief complaint) Excessive or frequent menstruationPain in limb 4 Mercedes Molina. [address], [address], [place], [place], [id number], [place]. tel:[phone] OFFICE/OUTPATI ENT VISIT, [facility], [address] , [address], [place], [id number] , [place] tel: [phone] CLOSED [address] [place] [facility] Closed vaginal bleeding (chief complaint) Excessive or frequent menstruationSubserous leiomyoma of uterus - 4 [place] [address]. [address], [address], [place], [place], [id number], [place]. tel:[phone] OFFICE CONSULTATION [facility], [address] , [address], [place], [id number] , [place] tel:[phone] [place] [facility] Adenomyosis (chief complaint) Endometriosis of uterusExcessive or frequent menstruation Sep-0 201 4 No Information Family History Family Member Type Diagnosis Age At Onset Father Problem (finding) cancer of colon 63 Father Problem (finding) hypertension Paternal aunt Problem (finding) breast cancer Mother Problem (finding) hypertension Paternal grandfather Problem (finding) malignant neopl asm of male breast Father Problem (finding) coronary arterioscleros is 74 Payers Payer name Insurance type Covered republican ID Authoriza tirei(s) [facility] [id number] Social History Type Description Quantity Date Captured [...] KEEP COMING FOR PELVIC EXAMS...MLM. abnormal bleeding Her symptoms b elías 5 days ago. Presently the patient is experiencing menorrhagia. The patient is postmenopausal. The patient is not currently . Relevant factors include passing clots. Additional information: s/p Endometrial Ablation. Heavy bleedinghad some dizziness and pt is becoming winded when walking--tg. abnormal bleeding (comments) The pt underwent Novasure [...] no longer is being anticoagulated. abnormal bleeding The patient is postmenopausal. The patient is not currently . Additional information: Bleeding started 03/30-04/21. Flow is describe as heavy...kr. abnormal bleeding (comments) The pt was on Coumadin when she began to bleed. This was discontinued due to the bleeding by PMD. Her path at time of ablation was benign in September,. Surgery Follow-Up Additional inf ormation: 10/14/13 D&C, Rashawn. having some pink spotting--tg. abnormal bleeding (comments) pt had transfusions x 2 and completed with a Hg = 8.0; the pt c/o severe R calf pain. She denies swelling or redness of that extremity. abnormal bleeding Additional inf ormation: Pt was in the hospital overnight and given a transfusion..kr. vaginal bleeding (comments) She has generally been [...] to discuss pending surgery and diagnoses.. Adenomyosis (comments) see sono report. endometrial thickness exceeds 20mm; adenomyosis and subserosal fibroid. normal ovaries. Pt has had intermittent heavy menses 2 weeks apart. Adenomyosis per u/s done 06/06 dx of Adenomyosis w/ fibroids--tg Instructions Date Instruction Additional Infor rich The [...] office were refilled. Related to Encntr for probe operator exam (general) (routine) w/o abn findings Pt will consult with probe operator onc to discuss TLH; CBC was drawn [...]
--- OUTSIDE RECORDS SUMMARY | 2024-10-14 15:50 | XMS_ITS | Referral Summary ---
Author Organization [facility] Address [address] [place] [address] Care Team Providers Care Dungeon Master Name Role Phone Melisa Cannon MD Primary [...] Insurance [address] [place] [id number] [facility] H[facility]/PPO Address: [facility] [id number] [place] [id number] Care Teams Dungeon Master Relationship Specialty Start Date End Date Melisa Cannon MD [address] [place] [address] [place] [address] PCP - General Family Medicine 02/15/24
--- OUTSIDE RECORDS SUMMARY | 2024-10-14 15:50 | XMS_ITS | Data Portability ---
Author Organization [facility] Ynes WESTFALL_Tessa_ Address [address] [place] [address] Care Team Providers Care Timber Management Technician Name Role Phone LOBITO GAMINO Primary Care Provider [phone] Assessment No assessment recorded. Plan of Treatment Reminders Order Date Submit Date Provider Last Modified By Organization Details Last Modified Time Details Appointments None recorded. Lab rapid influenza virus A + B and SARS CoV + SARS CoV 2 Ag panel, IA, upper respirato ry specimen 2022 023 [email or web address] In-Office Order, Internal Use Only DO Not Attach Compendium DO Not Attach Compendium, Do Not Delete/merge, [id number] 15:52:11 CMP, serum or plasma 2022 023 Junko Tada [facility], [address] [facility] [address], [place], [address], 3 04:24:56 fungus, culture, unspecifi ed specimen 2022 023 Junko Tada [facility], [address] [facility] [address], [place], [address], 3 06:27:47 rapid SARS CoV 2 Ag, QL IA, respirato ry specimen 2019 020 [email or web address] In-Office Order, Internal Use Only DO Not Attach Compendium DO Not Attach Compendium, Do Not Delete/merge, [id number] 0 09:34:53 SARS CoV 2 RNA (COVID-19 ), QL, cognos architect-PCR, respirato ry specimen 2019 020 Junko Tada [facility], [address] [facility] [address], [place], [address], 0 13:23:04 rapid SARS CoV 2 Ag, QL IA, respirato ry specimen 2019 020 [email or web address] In-Office Order, Internal Use Only DO Not Attach Compendium DO Not Attach Compendium, Do Not Delete/merge, [id number] 0 16:07:57 Referral None recorded. Procedures pulse oximetry (PROC) 2019 020 [email or web address] In-Office Order, Internal Use Only DO Not Attach Compendium DO Not Attach Compendium, Do Not Delete/merge, [id number] 0 09:34:53 pulse oximetry (PROC) 2019 020 [email or web address] In-Office Order, Internal Use Only DO Not Attach Compendium DO Not Attach Compendium, Do Not Delete/merge, [id number] 0 16:07:56 Surgeries None recorded. Imaging None recorded. Medication Orders Ambien 5 mg tablet 2022 023 [facility] [id number], [address] [place], [address], 3 16:00:10 amoxicill in 875 mg-potass ium clavulana te 125 mg tablet 2022 023 [email or web address] 6 [facility] [id number], [address] [place], [address], 3 15:36:56 terbinafi ne HCl 250 mg tablet 2022 023 [facility] [id number], [address] [place], [address], 3 16:04:19 Patient TargetsNo targets recorded. Patient Instructions Encounter Date Encounter Id Patient Instructions Last Modified By Organization Details Last Modified Time 04/30/2020 [id number] things to do i f you've [...] plans. [email or web address] Not available 04/30/2020 16:08:02 05/05/2020 [id number] headache: care instructions rulstad Not available 05/09/2020 [...] can be mild to severe and can address change clerk days or hours. Fever and chills, or [...] rest if you feel tired. Take an hpfc-asa-dttntmr pain medicine if needed, such as acetaminophen (Tylenol), ibuprofen (Advil, Motrin), or naproxen (Aleve). Read and follow all instructions on the label. Be careful when taking yjtb-ieb-jdkpykl cold or flu medicines and Tylenol at [...] expected. Care instructions adapted under license by [facility]. You've been evaluated for COVID-19. Your rapid COVID testing in-house was NEGATIVE. Continue to practice social distancing (6-10 feet), frequent hand hygiene and mask-wearing. Go directly to the Emergency Dept if you develop any emergency warning signs/symptoms such as: difficulty breathing, shortness of breath, chest pain, confusion, lethargy, bluish lips/face For general questions or concerns about the Coronavirus, please call: [place] COVID-19 Hotline: [phone] (open 24 hours, 7 days a week) For further information about COVID including positive COVID-19 test results in [place]: CDC's website www.cdc.gov/coronav irus and [place] Dept of Health and Human Services website www.[facility].gov/natalie navmichelle What is COVID-19? COVID-19 is caused [...] sentences. Patients was instructed to contact the [facility] Health line at to be triaged. [...] new or worsening symptoms please contact the [place] hot line below. This recommendation is based upon current [facility] and [place] Department of Health and Human Services recommendations at the time of your visit. It is imperative that you follow isolation/treatment guidelines if they are given to you by the [place] department of Health and Human Services. For general questions or concerns about the Coronavirus, please call: [place] COVID-19 Hotline: [phone] (open 24 hours, 7 days a week) For more information which will also include further positive Coronavirus (COVID-19) test results in [place], please visit: CDC's website www.cdc.gov/coronav irus and [place] Dept of Health and Human Services website www.[facility].gov/natalie navirus A negative test only says that [...] sentences. Patients was instructed to contact the [facility] Health line at to be triaged. [...] daily exercise. Exercise is a powerful stress personal finance instructor, can improve your mood and can keep [...] and individuals of any age who are -Israeli or who have hypertension, diabetes or chronic [...] plan. rulstad Not available 05/09/2020 09:33:15 10/02/2022 [id number] Acute Sinusitis: Care Instructions Not available 10/02/2022 15:52:11 cough: care instructions Not available 10/02/2022 15:52:11 Reason for Referral None Reported. Results Created Date Observation Date Name Description Value Unit Range Abnormal Flag Note LastModifiedBy Organization Detail LastModifiedTime 05/05/20 20 05/05/2020 pulse oxime try (PROC ) pulse oximetry 98% room air Not Available In-Office Order Internal Use Only DO Not Attach Compendium DO Not Attach Compendium, Do Not Delete/merge, [id number] 05/05/2020 17:13:05 04/30/20 20 04/30/2020 rapid SARS CoV 2 Ag, QL IA, respi rator y speci men RAPID Nasal Covid negati ve Not Available In-Office Order Internal Use Only DO Not Attach Compendium DO Not Attach Compendium, Do Not Delete/merge, [id number] 04/30/2020 15:53:59 04/30/20 20 04/30/2020 pulse oxime try (PROC ) pulse oximetry 96% AT ROOM AIR Not Available In-Office Order Internal Use Only DO Not Attach Compendium DO Not Attach Compendium, Do Not Delete/merge, [id number] 04/30/2020 15:53:40 05/05/20 20 05/05/2020 rapid SARS CoV 2 Ag, QL IA, respi rator y speci men RAPID Nasal Covid negati ve Not Available In-Office Order Internal Use Only DO Not Attach Compendium DO Not Attach Compendium, Do Not Delete/merge, [id number] 05/05/2020 17:13:34 09/20/1910/17/2022 CULTU RE, FUNGU S, SKIN, HAIR OR NAILS culture, fungus, skin, hair or nails SEE NOTE abnormal CULTU RE, FUNGU S, SKIN, HAIR OR NAILS Micro Numbe r: [id number] Test Statu s: Final Speci men Sourc e: Nails Speci men Quali ty: Adequ ate Resul t: Growt h of Penic illiu m speci es Scant growt h of Nikky da famat a (form erly Torul opsis nikky da) No addit ional fungi isola charly after 4 weeks Not Available Work in [employer] [facility] [address] [place] [address], [address], 10/17/2022 08:38:56 10/03/19 23 10/02/2022 rapid influ milly virus A + B and SARS CoV + SARS CoV 2 Ag panel , IA, upper respi rator y speci men Rapid Combo Flu & Covid negati ve Not Available In-Office Order Internal Use Only DO Not Attach Compendium DO Not Attach Compendium, Do Not Delete/merge, [id number] 10/02/2022 15:15:30 10/26/19 23 10/26/2022 COMPR EHENS RADHA METAB OLIC PANEL glucose 82 mg/dL 65-139 normal Non-f astin g refer ence inter saundra Not Available Work in [employer] [facility] [address] [place] [address], [address], 10/26/2022 04:24:56 10/26/19 23 10/26/2022 COMPR EHENS RADHA METAB OLIC PANEL urea nitrogen (BUN) 12 mg/dL 7-25 normal Not Available [facility] [address] [place] [address], [address], 10/26/2022 04:24:56 10/26/19 23 10/26/2022 COMPR EHENS RADHA METAB OLIC PANEL creatinine 0.75 mg/dL 0.50-1 .05 normal Not Available [facility] [address] [place], [address], 10/26/2022 04:24:56 10/26/19 23 10/26/2022 COMPR EHENS RADHA METAB OLIC PANEL eGFR 90 mL/mi n/1.7 3m2 > or = 60 normal The eGFR is based on the CKD-E PI 2020 equat ion. To calcu late the new eGFR from a previ ous Creat inine or Cysta tin C resul t, go to https ://tiffanie w.analisa herzog.o silke/pr fareed norman s/ kdoqi /gfr% 5Fcal culat or Not Available [facility] [address] [place] [address], [address], 10/26/2022 04:24:56 10/26/19 23 10/26/2022 COMPR EHENS RADHA METAB OLIC PANEL BUN/creatini ne ratio NOT APPLIC ABLE (calc ) 6-22 Not Available [facility] [address] [place] [address], [address], 10/26/2022 04:24:56 10/26/19 23 10/26/2022 COMPR EHENS RADHA METAB OLIC PANEL sodium 140 mmol/ L 135-14 6 normal Not Available [facility] [address] [place] [address], [address], 10/26/2022 04:24:56 10/26/19 23 10/26/2022 COMPR EHENS RADHA METAB OLIC PANEL potassium 4.9 mmol/ L 3.5-5. 3 normal Not Available [facility] [address] [place] [address], [address], 10/26/2022 04:24:56 10/26/1910/26/2022 COMPR EHENS RADHA METAB OLIC PANEL chloride 103 mmol/ L 98-110 normal Not Available [facility] [address] [place] [address], [address], 10/26/2022 04:24:56 10/26/19 23 10/26/2022 COMPR EHENS RADHA METAB OLIC PANEL carbon dioxide 28 mmol/ L 20-[address] [facility] [address] [place] [address], [address], 10/26/2022 04:24:56 10/26/19 23 10/26/2022 COMPR EHENS ARDHA METAB OLIC PANEL calcium 9.6 mg/dL 8.6-10 .[address] [facility] [address] [place] [address], [address], 10/26/2022 04:24:56 10/26/19 23 10/26/2022 COMPR EHENS RADHA METAB OLIC PANEL protein, total 6.8 g/dL 6.1-8. [address] [facility] [address] [place] [address], [address], 10/26/2022 04:24:56 10/26/19 23 10/26/2022 COMPR EHENS RADHA METAB OLIC PANEL albumin 3.9 g/dL 3.6-5. [address] [facility] [address] [place] [address], [address], 10/26/2022 04:24:56 10/26/19 23 10/26/2022 COMPR EHENS RADHA METAB OLIC PANEL globulin 2.9 g/dL_ (calc ) 1.9-3. [address] [facility] [address] [place] [address], [address], 10/26/2022 04:24:56 10/26/19 23 10/26/2022 COMPR EHENS RADHA METAB OLIC PANEL albumin/glob ulin ratio 1.3 (calc ) 1.0-2. [address] [facility] [address] [place] [address], [address], 10/26/2022 04:24:56 10/26/19 23 10/26/2022 COMPR EHENS RADHA METAB OLIC PANEL bilirubin, total 0.4 mg/dL 0.2-1. 2 normal Not Available [facility] [address] [place], [address], 10/26/2022 04:24:56 10/26/1910/26/2022 COMPR EHENS RADHA METAB OLIC PANEL alkaline phosphatase 126 U/L 37-153 normal Not Available [facility] [address] [place], [address], 10/26/2022 04:24:56 10/26/1910/26/2022 COMPR EHENS RADHA METAB OLIC PANEL AST 50 U/L 10-35 high Not Available [facility] [address] [place], [address], 10/26/2022 04:24:56 10/26/1910/26/2022 COMPR EHENS RADHA METAB OLIC PANEL ALT 34 U/L 6-29 high Not Available [facility] [address] [place], [address], 10/26/2022 04:24:56 Result Notes None recorded. Problems No Known Problems Procedures Surgical History Date Name Laterality Status Provider Name and Address Organization Details Recorded Time 06/04/19 18 Gastric Bypass completed Delmi Jones [facility] 05/05/2020 17:10:21 06/04/19 18 Colonoscopy completed [employer] [facility] 05/05/2020 17:10:21 06/04/19 15 Hysterectomy completed [employer] [facility] 05/05/2020 17:10:21 06/04/18 93 Caesarean Section completed [employer] [facility] 05/05/2020 17:10:21 Imaging Results None recorded. Procedure Notes None recorded. Medical Equipment None Reported. Allergies Allergen ID Allergen Name Allergen Category Reaction Reaction Severity Criticality Documentation Date Start Date Code Code System Note Provider Name and Address Organization Details Recorded Time 610553 Substance with sulfonami de structure and antibacte rial mechanism of action (substanc e) medicatio n Not available Not available Not available 04/30/2020 65109 8003 SNOMED Luisa seymourTIGNALL, [place] [facility] 0 15:52:59 702611 acetamino phen / oxycodone medicatio n Not available Not available Not available 04/30/2020 39257 3 RxNorm Luisa Barrera [facility], [facility] 0 15:53:04 Medications Name Sig Start [...] Updated DateTime 0 158.75 cm 35.1 kg/m2 16343.5 1 g 82 /min 96.2 [degF] 96 % 96 % 15 /min Luisa Barrera [facility] 0 15:52:17 Date Recorded Body height Body mass index (BMI) Body weight Heart rate Body temperature Oxygen saturation Oxygen saturation in Arterial blood by Pulse oximetry Respiratory rate Systolic blood pressure Diastolic blood pressure Provider Name and Address Organization Details Last Updated DateTime 0 158.75 cm 35.1 kg/m2 00021.5 1 g 84 /min 97.1 [degF] 98 % 98 % 18 /min 135 mm[Hg] 96 mm[Hg] Delmi Gold [facility] 0 17:09:32 Date Recorded Body height Body mass index (BMI) Body weight Heart rate Body temperature Oxygen saturation Oxygen saturation in Arterial blood by Pulse oximetry Respiratory rate Systolic blood pressure Diastolic blood pressure Provider Name and Address Organization Details Last Updated DateTime 3 157.48 cm 36.8 kg/m2 84817.5 g 85 /min 97.2 [degF] 96 % 96 % 18 /min 116 mm[Hg] 87 mm[Hg] Kae Schmidt [facility] 3 15:46:19 Date Recorded Body height Body mass index (BMI) Body weight Heart rate Body temperature Oxygen saturation Oxygen saturation in Arterial blood by Pulse oximetry Respiratory rate Systolic blood pressure Diastolic blood pressure Provider Name and Address Organization Details Last Updated DateTime 3 157.48 cm 36.3 kg/m2 35502.4 4 g 101 /min 98.7 [degF] 98 % 98 % 18 /min 115 mm[Hg] 84 mm[Hg] Monique Alvarez [place] [facility] 3 15:08:12 Date Recorded Body height Body mass index (BMI) Body weight Systolic blood pressure Diastolic blood pressure Provider Name and Address Organization Details Last Updated DateTime 11/02/2022 157.48 cm 36.8 kg/m2 15974.78 g 111 mm[Hg] 79 mm[Hg] Kae Schmidt [place] [facility] 3 15:36:45 Social History Question Answer Notes LastModified by [employer] Details LastModified Time Tobacco Smoking Status Never Smoker Delmi Gold [place], [place] - [facility] 05/05/2020 17:10:15 Do You Have An Advance Directive? No [email or web address] Information n ot available 05/05/2020 In The 14 Days Before Symptom Onset, Have You Had Close Contact With A Laboratory-confirm ed COVID-19 While That Case Was Ill? Yes [email or web address] Information n ot available 09/14/2022 If Patient Spent Time In [facility] - Does The Patient Live In [facility]? No [email or web address] Information not available 09/14/2022 In The 14 Days Before Symptom Onset, Have You Had Close Contact With A Person Who Is Under Investigation For COVID-19 While That Person Was Ill? Yes [email or web address] Information not available 09/14/2022 In The 14 Days Before Symptom Onset, Did The Patient Spend Time In [facility]? No [email or web address] Information not available 09/14/2022 Have You Been To An Area Known To Be High Risk For COVID-19? No [email or web address] Information not available 09/14/2022 How Much Tobacco Do You Smoke? No Information not available 05/05/2020 Sex: Female Functional Status Question Answer Note LastModified by [employer] Details LastModified Time What is your level of alcohol consumption? Occasional [email or web address] Information not available 05/05/2020 Mental Status None recorded. Family History Relationship Description Onset Age of this Age Resolved Age Notes LastModified by Organization Details LastModified Time Father No current problems or disability Not available 05/05 17:10:29 Mother No current problems or disability [email or web address] Not available 05/05 17:10:29 Medical History Condition [...] SNOMED-CT Code Diagnosis ICD10 Code Diagnosis Note [id number] Cody Verdugo MD [facility] [address] [address] 04/30/2020 15:04:14 04/30/2020 16:17:07 Exposure to SARS-CoV-2 675058515 Z20.828 Exposed to Covid Covid negative Advised via PC also advised to take daily Vitamin D supplement [id number] Lai Kaiser PA-C [facility] [address] [place] [address] 05/05/2020 15:49:31 06/12/2020 22:23:26 Exposure to SARS-CoV-2 631433827 Z20.828 Risk of ex posure to communicable disease 637200307 Z20.9 Suspected COVID-19 99364 4004 Z20.828 Medical ex amination for suspected condition 904438613 Z03.89 Exposure t o communicable disease 049169600 Z20.9 Suspected coronavirus infection 971819105 Z03.89 Body mass index 30+ - obesity 001632796 Z68.35 MEDICAL CONDITION STATUS AND ANY APPROPRIAT [...] . 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 Hypothyroidism 62333911 E03.9 MEDICAL CONDITION STATUS AND ANY APPROPRIAT [...] CONTINUING THE MEDICATION PRESCRIBED . Viral syndrome 124190209 B34.9 MEDICAL CONDITION STATUS AND ANY APPROPRIAT [...] NO EVIDENCE OF POSSIBLE SIGNIFICAN T DRUG-TO-DR CONDE INTERACTLETTY SMALLS, AND APPROPRIAT E LAB(S) HAVE BEEN REVIEWED, IF APPLICABLE . PATIENT IS IN AGREEMENT TO CONTINUING THE MEDICATION PRESCRIBED . Nasal congestion 8883532 0 R09.81 MEDICAL CONDITION STATUS AND ANY [...] NO EVIDENCE OF POSSIBLE SIGNIFICAN T DRUG-TO-DR CONDE INTERACTLETTY NS, AND APPROPRIAT E LAB(S) HAVE BEEN REVIEWED, IF APPLICABLE . PATIENT IS IN AGREEMENT TO CONTINUING THE MEDICATION PRESCRIBED . Diarrhea 88111085 R19.7 MEDICAL CONDITION STATUS AND ANY APPROPRIAT [...] NO EVIDENCE OF POSSIBLE SIGNIFICAN T DRUG-TO-DR CONDE INTERACTLETTY NS, AND APPROPRIAT E LAB(S) HAVE BEEN REVIEWED, IF APPLICABLE . PATIENT IS IN AGREEMENT TO CONTINUING THE MEDICATION PRESCRIBED . Vomiting 083246087 R11.1 0 MEDICAL CONDITION STATUS AND ANY [...] NO EVIDENCE OF POSSIBLE SIGNIFICAN T DRUG-TO-DR CONDE INTERACTLETTY NS, AND APPROPRIAT E LAB(S) HAVE BEEN REVIEWED, IF APPLICABLE . PATIENT IS IN AGREEMENT TO CONTINUING THE MEDICATION PRESCRIBED . Headache 36106401 R51.9 MEDICAL CONDITION STATUS AND ANY APPROPRIAT [...] AGREEMENT TO CONTINUING THE MEDICATION PRESCRIBED . [id number] MD Kavitha Roy_ [place] [address] [facility] [address] [address] 09/14/2022 15:18:31 09/14/2022 16:17:26 Onychomycosis 011091847 B35.1 possible onychomyco sis of several finger nailswill have her bring in a nail for culture but get started on terbinafin e nowHFP at 6 weeks and follow up to see if need to continuePt in agreement with plan and indicated understand ing. All questions answered. [id number] MD Kavitha Moyer_ [place] [address] [facility] [address] [address] 10/02/2022 14:47:41 10/04/2022 02:53:19 Acute sinusitis 09189278 J01.90 f/u with PCP to ensure resolvedgo to ED if worsen Nasal congestion 4790058 0 R09.81 Cough 32089978 R05.9 [id number] MD Kavitha Roy_ [place] [address] [facility] [address] [address] 11/02/2022 15:21:17 11/02/2022 16:14:56 Onychomycosis 371378789 B35.1 culture positive for penicilliu m and camille- treated successful ly with terbinafin e Non-alcoho lic fatty liver 637919389 K76.0 pt reports history of thisLFTs ALT 34 and AST 50pt will share labs with her doctor to compare prior Insomnia 300978932 G47.0 0 struggling to fall asleep - [...] Member ID Fox Member ID Guarantor Name 11/06/2022 1 [facility] [id number] PatriciaChantal Carter [id number] Dafne Carter Notes Date Note Type Note [...] tachycardiaNotes: NO SX- POSSIBLE EXPOSURE Cody seymour CT - [facility] 04/30/2020 16:08:14 05/05/2020 text/html COVID-19 Symptom [...] DISORDER, AND OBESITY. Lai Kaiser PA-C [address] [place], [address], [facility] 05/09/2020 09:36:15 09/14/2022 text/html Pt presents to [facility] for possible infection on finger nails. had her nails done prior to easter Reports she's on an antibiotic for toe infection. Opal Borjas MD [address] [place], [address], [facility] 09/14/2022 16:10:48 10/02/2022 text/html Upper Respirator y SymptomsReported bypatient.Quality:pro ductive cough;congested Associated Symptoms:no sputum production; no shortness of breath; no wheezing; no change in number of pillows needed to sleep at night; no sweats; no significant weight gain; no significant weight loss; no morning cough; no sore throat; no vomiting; no diarrhea; no rash; no nausea Dolly seymour, [place] [facility] 10/03/2022 07:50:36 11/02/2022 text/html Pt presents to [facility] for F/U on labs Opal Borjas MD [address] [place], [address], [facility] 11/02/2022 16:01:06 OBGyn Episode No OBEpisode recorded.
--- OUTSIDE RECORDS SUMMARY | 2024-10-14 15:50 | XMS_ITS | Data Portability ---
Author Organization [place] [facility] Address [address] [place] [id number] Assessment Encounter Date Assessment Date Assessment LastModified [...] spelling and vocabulary are possible and unintentional. [email or web address] Not available 09/15/2021 16:29:40 Plan of Treatment Reminders Order Date Submit Date Provider Last Modified By Organization Details Last Modified Time Details Appointments None recorded. Lab None recorded. Referral None recorded. Procedures None recorded. Surgeries None recorded. Imaging None recorded. Medication Orders amoxicillin 875 mg-potassiu m clavulanate 125 mg tablet 2021 022 [id number], [address], [place], [place], [id number], 15:03:58 Patient TargetsNo targets recorded. Patient InstructionsNo instructions recorded. Reason for Referral None Reported. Problems Name Problem SNOMED Code Status Onset Date Resolution Date Notes Provider Name and Address Organization Details Recorded Time Dog bite - wound 563987601 Active 022 Judah seymour [facility] 08/22/2021 14:26:28 Problem Notes None recorded. Medical Equipment None Reported. Allergies Allergen ID Allergen Name Allergen Category Reaction Reaction Severity Criticality Documentation Date Start Date Code Code System Note Provider Name and Address Organization Details Recorded Time 962527 oxycodone medicatio n rash mild Not available 08/22/20212020 7804 RxNorm Judah Mandeep se[place]our, [place] - [facility] 2 14:25:46 040344 acetamino phen / oxycodone medicatio n rash Not available Not available 08/22/2021 68791 3 RxNorm Judah Mandeep [place], [place] - [facility] 2 14:25:59 902816 Substance with sulfonami de structure and antibacte rial mechanism of action (substanc e) medicatio n hives Not available Not available 08/22/2021 35505 8003 SNOMED Judah Mandeep seymour, [facility] 14:26:11 Medications Name Sig Start Date [...] Updated DateTime 08/22/2021 156.21 cm 37.4 kg/m2 42494.07 g Judah Kaufman [place] - [facility] 08/22/2021 14:25:21 Social History None recorded. 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 Family History Nothing Reported. Medical History No medical history recorded. Gynecological HistoryNo gynecological history recorded. Obstetrics History GPAL:G 0 P 0 0 0 0 Past Encounters Encounter ID Performer Location Encounter Start Date Encounter Closed Date Diagnosis/Indication Diagnosis SNOMED-CT Code Diagnosis ICD10 Code Diagnosis Note [id number] Lai Saeed MD [facility] [place] [address],[facility] [address] [place] [address] 08/22/2021 13:50:03 08/22/2021 15:22:03 Open wound of left forearm due to dog bite [id number] 5905956 S51.852A Health Concerns Section Related Observation LastModified by Organization Detai ls LastModified Time None Recorded Concern Status LastModified by Organization Details LastModified Time None Recorded Advance Directives Directive None Recorded Payers Insurance Date Sequence Insurance Name Policy Number Policy Fox Covered Member ID Fox Member ID Guarantor Name 09/19/2021 1 [facility] [id number] Dafne Cornejo Raul [id number] Dafne Cornejo Raul Notes Date Note Type [...] with extension of ring. Patient is from [place] and is going home in 1 week. [...] 08/17/2021 15:38 Ysabel Diehl PA-C [address] [place], [address], [facility] - [facility] 09/15/2021 16:29:55 OBGyn Episode No OBEpisode recorded.
--- OUTSIDE RECORDS SUMMARY | 2024-10-14 15:50 | XMS_ITS | Continuity of Care Document ---
Author Organization [facility] Address [address] [place] [address] Phone Care Team Providers Care Scan Coordinator Name Role Phone JAYLON DAVE MD Unavailable [...] [facility], [address], [place], [id number], [place] tel:[phone] knee pain equally on both sides (chief complaint) Primary osteoarthriti s of both kneesObesity (BMI 30-39.9) 6 TENZIN IYER. [address] [facility], [address], [place], [place], [id number], [place]. tel:[phone] [facility], [address], [place], [place], [address], [place] tel:[phone] PHYSICAL THERAPY OFFICE No Information 6 Nell Dykes. [address] [facility], [address], [place], [address], [place]. tel:[phone] Referring Provider: JAYLON Han, [address] [facility] [address], [place], [place], . tel:[phone] [facility], [address], [place], , [place] tel:[phone] PHYSICAL THERAPY OFFICE No Information 9-201 6 Camejo DPT Jania. [address] [facility], [address], [place], , [place]. tel:[phone] Referring Provider: JAYLON Han, [address] [facility] [address], [place], . tel:[phone] [facility], [address], [place], , [place] tel:[phone] PHYSICAL THERAPY OFFICE No Information 2-201 6 Camejo DPT Jania. [address] [facility], [address], [place], , [place]. tel:[phone] Referring Provider: JAYLON Han, [address] [facility] [address], [place], . tel:[phone] [facility], [address], [place], , [place] tel:[phone] PHYSICAL THERAPY OFFICE No Information -201 6 Camejo DPT Jania. [address] [facility], [address], [place], , [place]. tel:[phone] Referring Provider: JAYLON Han, [address] [facility] [address], [place], . tel:[phone] [facility], [address], [place], , [place] tel:[phone] PHYSICAL THERAPY OFFICE No Information 1-201 6 Camejo DPT Jania. [address] [facility], [address], [place], , [place]. tel:[phone] Referring Provider: JAYLON Han, [address] [facility] [address], [place], . tel:[phone] [facility], [address], [place], [address], [place] tel:[phone] PHYSICAL THERAPY OFFICE No Information 6 Camejo DPT Jania. [address] [facility], [address], [place], , [place]. tel:[phone] Referring Provider: JAYLON Han, [address] [facility] [address], [place], . tel:[phone] [facility], [address], [place], , [place] tel:[phone] PHYSICAL THERAPY OFFICE No Information 6 Camejo DPT Jania. [address] [facility], [address], [place], , [place]. tel:[phone] Referring Provider: JAYLON Han, [address] [facility] [address], [place], . tel:[phone] [facility], [address], [place], [place], [address], [place] tel:[phone] PHYSICAL THERAPY OFFICE No Information 6 Camejo DPT Jania. [address] [facility], [address], [place], , [place]. tel:[phone] Referring Provider: JAYLON Han, [address] [facility] [address], [place], . tel:[phone] NEW PATIENT OFFICE VISIT- LEVEL 3 [facility], [address], [place], [place], [address], [place] tel:[phone] [facility] left knee pain (chief complaint) XRAY ORDERPrimary osteoarthriti s of both kneesObesity (BMI 30-39.9) 6 TENZIN IYER. [address] [facility], [address], [place], [place], [address], [place]. tel:[phone] Referring Provider: JAYLON Han, [address] [facility] [address], [place], [address] . tel:[phone] Family History Family Member Type Diagnosis Age At Onset Mother Problem (finding) depression 20 Father Problem (finding) hypertension 50 Mother Problem (finding) hypertension 50 Mother Problem (finding) Cardiovascular disease 76 Mother Problem (finding) alzheimer's disease 76 Father Problem (finding) cancer of colon 63 Mother Problem (finding) Mental illness 20 Payers Payer name Insurance type Covered libertarian ID Christos pierce(s) [facility] [id number] Social History Type Description Quantity Date Captured [...] 30-39.9)) ordered Referral Referred To: UMANG BOB [address] [place] [address]
[address] [place], [phone] Ordered: Referrals: [facility] B[facility]. Evaluate and treat [...] Mental Status Date Cognitive Assessment Orientation - Gillett ed to time, place, person, situation. Patient Care Teams Name Effective Dates (start - stop) Status Members No Information
--- OUTSIDE RECORDS SUMMARY | 2024-10-14 15:50 | XMS_ITS | Clinical Summary ---
Author Organization [facility] at the [facility] Address [address] [place] [address] Care Team Providers Care Surgery Nurse Name Role Phone Melisa Cannon MD Primary [...] age to complete this topic Insurance [address] [employer] [place] [id number] [facility] CHOICE PLUS Member Subscriber Plan / Payer (Ef fective 2023-Present) Name:Dafne Carter Relation to Subscriber:Self Name:Dafne Carter Payer ID:[id number] (NAIC) Type:[facility] HMO/PPO Address: [place] [phone] Care Teams Surgery Nurse Relationship Specialty Start Date End Date Melisa Cannon MD [address] [place] [address] [address] PCP - General Family Medicine 02/15/24
[2024-10-14 20:14] LABS: Basophils Percent Auto 0.4 % (0.2-1.2); Eosinophils Absolute Auto 0.1 K/mm3 (0-0.3); Eosinophils Percent Auto 1.6 % (0-4.4); Hematocrit 47.2 % (37.0-47.0); Hemoglobin 14.7 g/dL (12.0-15.0); Immature Granulocyte Absolute 0.03 K/mm3 (0.00-0.031); Immature Granulocyte Percent A 0.3 % (0-0.5); Lymphocytes Absolute Auto 2.01 K/mm3 (0.9-3.2); Lymphocytes Percent Auto 22.3 % (18.3-44.2); Mean Corpuscular HGB Conc 31.1 g/dl (32-36); Mean Corpuscular Hemoglobin 29.6 pg (26-34); Mean Platelet Volume 10.8 fl (7.4-10.4); Monocytes Absolute Auto 0.6 K/mm3 (0.1-0.6); Monocytes Percent Auto 6.4 % (2.6-8.5); Neutrophils Absolute Auto 6.2 K/mm3 (1.3-6.7); Platelet Count Result 301 k/mm3 (150-375); Red Blood Count 4.97 M/mm3 (4.2-5.4); Red Cell Distribution Width 13.3 % (11.5-14.5)
[2024-10-14 20:21] LABS: Prothrombin Time 13.3 Seconds (11.1-14.7)
[2024-10-14 20:30] LABS: Alanine Aminotransferase 76 U/L (6-35); Albumin Level 4.8 g/dL (3.5-5.1); Alkaline Phosphatase 122 U/L (38-126); Anion Gap 12 mmol/L (4-12); Aspartate Amino Transferase 78 U/L (14-36); Bilirubin,Total 0.5 mg/dL (0.2-1.3); Blood Urea Nitrogen 17 mg/dL (7-17); Calcium 9.6 mg/dL (8.4-10.2); Carbon Dioxide 28 mmol/L (22-30); Chloride 104 mmol/L (98-107); Estimated Glomerular Filt Rate > 60; Glucose 91 mg/dL (65-110); Potassium 4.4 mmol/L (3.4-5.0); Sodium 144 mmol/L (137-145)
== END 2024-10-14 15:48 | disposition home or self-care (01) ==
PROVIDERS: PCP Family Medicine; Visit Provider Family Medicine
DX: R94.5 Abnormal results of liver function studies (principal); K76.0 Fatty (change of) liver, not elsewhere classified
CPT/HCPCS: 36415; 80048; 80076; 81596; 82728; 85025; 85610

== ENCOUNTER 2024-12-01 08:39 | Outpatient (CLI) | payer OTHER, SELFPAY ==
[2024-12-01 12:28] LABS: Iron 116 ug/dL (37-170)
[2024-12-01 12:36] LABS: Immunoglobulin A 290 mg/dL (70-400)
[2024-12-01 12:43] LABS: Alanine Aminotransferase 25 U/L (6-35); Albumin Level 4.2 g/dL (3.5-5.1); Alkaline Phosphatase 118 U/L (38-126); Aspartate Amino Transferase 40 U/L (14-36); Bilirubin,Total 0.9 mg/dL (0.2-1.3); Total Protein 7.6 g/dL (6.3-8.2)
[2024-12-01 12:45] LABS: Percent Iron Saturation 33 % (20-50)
[2024-12-01 13:07] LABS: Hepatitis B Surface Antigen Negative (Negative)
[2024-12-01 13:24] LABS: Hepatitis B Surface Anti Res Negative
[2024-12-02 07:14] LABS: Ceruloplasmin. 29 mg/dL (14-48); GGT 32 U/L (3-65)
[2024-12-03 09:49] LABS: Anti Nuclear Antibody Pattern Nuclear, Speckled
[2024-12-04 06:18] LABS: LKM 1 Antibody. <=20.0 U (<=20.0)
[2024-12-04 07:13] LABS: Tissue TransglutaminaseIgA Ab. <1.0 U/mL
[2024-12-05 12:08] LABS: Mitochondrial (M2) Ab (IgG). <20.0 U
[2024-12-07 13:44] LABS: Actin Antibody (IgG). 25 U (<20)
== END 2024-12-01 08:40 | disposition home or self-care (01) ==
LOC: ANHGOSHLAB 08:40
PROVIDERS: PCP Family Medicine; Visit Provider Nurse Practitioner Family
DX: R94.5 Abnormal results of liver function studies (principal); K76.0 Fatty (change of) liver, not elsewhere classified; R19.7 Diarrhea, unspecified
CPT/HCPCS: 36415; 80076; 81596; 82104; 82390; 82728; 82784; 82977; 83520; 83540; 83550; 86038; 86039; 86364; 86376; 86706; 87340

== ENCOUNTER 2025-02-18 08:20 | Outpatient (CLI) | payer OTHER, SELFPAY ==
--- OUTSIDE RECORDS SUMMARY | 2016-04-10 08:15 | XMS_ITS | Continuity of Care Document ---
Author Organization [facility] Address [address] [place] [address] Phone Care Team Providers Care Ski Maker Name Role Phone JAYLON DAVE MD Unavailable Unavailable Allergies, Adverse Reactions, Alerts Substance Reaction Status Criticality Sulfa (Sulfonamide Antibiotics) Active No Information OXYCODONE HCL Active No Information acetaminophen Active No Information Medications Medication Instructions Dosage Effective Dates (start - stop) Status Comments ORTHOVISC 30 mg/2 mL intra-articular syringe inject 2 milliliter by intra-articular route each week into Bilateral knees - Active Euflexxa 10 mg/mL intra-articular syringe inject 1 by Intra-articular route every week for 3 weeks into the BILATERAL KNEES - Active nabumetone 500 mg tablet take 1 tablet b y oral route 2 times every day 500 MG - Active DULOXETINE HCL (unknown strength) take 1 capsule by oral route 2 times every day Not Available - Active METOPROLOL SUCCINATE (unknown strength) take 1 tablet by oral route every day Not Available - Active HYDROCHLOROTHIAZIDE (unknown strength) take 2 capsule by oral route every day Not Available - Active ASPIR 81 (unknown strength) take 1 tablet by oral route every day Not Available - Active PHENTERMINE HCL (unknown strength) take 1 capsule by oral route every day before breakfast Not Available - Active Procedures Procedure Date ESTABLISHED PATIENT OFFICE VISIT - LEVEL 4 THERAPEUTIC EXERCISES ELECTRIC STIMULATION THERAPY (UNATTENDED ) PT RE-EVALUATION ULTRASOUND THERAPEUTIC EXERCISES ELECTRIC STIMULATION THERAPY (UNATTENDED ) THERAPEUTIC EXERCISES ELECTRIC STIMULATION THERAPY (UNATTENDED ) THERAPEUTIC EXERCISES ELECTRIC STIMULATION THERAPY (UNATTENDED ) THERAPEUTIC EXERCISES ELECTRIC STIMULATION THERAPY (UNATTENDED ) SELF-PAY ITEM: ELECTRODES THERAPEUTIC EXERCISES ELECTRIC STIMULATION THERAPY (UNATTENDED ) SELF-PAY ITEM: STRETCH OUT STRAP 2015 THERAPEUTIC EXERCISES PT EVALUATION THERAPEUTIC EXERCISES X-RAY KNEE - BILATERAL STANDING 016 X-RAY KNEE - BILATERAL STANDING 016 X-RAY KNEE - 1 OR 2 VIEWS X-RAY KNEE - 1 OR 2 VIEWS NEW PATIENT OFFICE VISIT- LEVEL 3 NEW PATIENT OFFICE VISIT- LEVEL 3 X-RAY KNEE - BILATERAL STANDING 016 X-RAY KNEE - 1 OR 2 VIEWS Advance Directives Directive Yes / No Effective Date File Name No Information Encounters Encounter Description Practice Location Reason(s) For Visit Diagnoses Date Provider Providers Copied on Encounter ESTABLISHED PATIENT OFFICE VISIT - LEVEL 4 [facility], [address], [place], [id number], [place] tel:[phone] knee pain equally on both sides (chief complaint) Primary osteoarthriti s of both kneesObesity (BMI 30-39.9) 6 TENZIN IYER. [address] [facility], [address], [place], [place], [id number], [place]. tel:[phone] [facility], [address], [place], [place], [id number], [place] tel:[phone] PHYSICAL THERAPY OFFICE No Information 6 Nell Dykes. [address] [facility], [address], [place], [address], [place]. tel:[phone] Referring Provider: JAYLON Han, [address] [place] [address], [place], [place], . tel:[phone] [facility], [address], [place], , [place] tel:[phone] PHYSICAL THERAPY OFFICE No Information 9-201 6 Camejo DPT Jania. [address] [place], [address], [place], , [place]. tel:[phone] Referring Provider: JAYLON Han, [address] [place] [address], [place], . tel:[phone] [facility], [address], [place], , [place] tel:[phone] PHYSICAL THERAPY OFFICE No Information 2-201 6 Camejo DPT Jania. [address] [place], [address], [place], , [place]. tel:[phone] Referring Provider: JAYLON Han, [address] [place] [address], [place], . tel:[phone] [facility], [address], [place], , [place] tel:[phone] PHYSICAL THERAPY OFFICE No Information -201 6 Camejo DPT Jania. [address] [place], [address], [place], , [place]. tel:[phone] Referring Provider: JAYLON Han, [address] [place] [address], [place], . tel:[phone] [facility], [address], [place], , [place] tel:[phone] PHYSICAL THERAPY OFFICE No Information 1-201 6 Camejo DPT Jania. [address] [place], [address], [place], , [place]. tel:[phone] Referring Provider: JAYLON Han, [address] [place] [address], [place], . tel:[phone] [facility], [address], [place], [place], [id number], [place] tel:[phone] PHYSICAL THERAPY OFFICE No Information 6 Camejo DPT Jania. [address] [facility], [address], [place], , [place]. tel:[phone] Referring Provider: JAYLON Han, [address] [facility] [address], [place], . tel:[phone] [facility], [address], [place], , [place] tel:[phone] PHYSICAL THERAPY OFFICE No Information 6 Camejo DPT Jania. [address] [facility], [address], [place], , [place]. tel:[phone] Referring Provider: JAYLON Han, [address] [facility] [address], [place], . tel:[phone] [facility], [address], [place], [place], [address], [place] tel:[phone] PHYSICAL THERAPY OFFICE No Information 6 Camejo DPT Jania. [address] [facility], [address], [place], , [place]. tel:[phone] Referring Provider: JAYLON Han, [address] [facility] [address], [place], . tel:[phone] NEW PATIENT OFFICE VISIT- LEVEL 3 [facility], [address], [place], [place], [address], [place] tel:[phone] [facility] left knee pain (chief complaint) XRAY ORDERPrimary osteoarthriti s of both kneesObesity (BMI 30-39.9) 6 TENZIN IYER. [address] [facility], [address], [place], [place], [address], [place]. tel:[phone] Referring Provider: JAYLON Han, [address] [facility] [address], [place], [address] . tel:[phone] Family History Family Member Type Diagnosis Age At Onset Mother Problem (finding) depression 20 Father Problem (finding) hypertension 50 Mother Problem (finding) hypertension 50 Mother Problem (finding) Cardiovascular disease 76 Mother Problem (finding) alzheimer's disease 76 Father Problem (finding) cancer of colon 63 Mother Problem (finding) Mental illness 20 Payers Payer name Insurance type Covered constitution party ID Christos pierce(s) [facility] [id number] Social History Type Description Quantity Date Captured Comments Alcohol Use Details Caffeine Use Details Tobacco Use Status Ex-cigarette smoker 016 Smoking Status Former smoker Sex Female Vital Signs Date / Time: Height Weight BMI Pulse Rate Blood Pressure Temperature Respiratory Rate Body Surface Area Head Circumference Head Circ. Percentile Wt./[place]. Percentile BMI percentile Pulse Ox Inhaled Ox 1:19 PM 63.00 in 121.608 kg (268.10 lbs) 47.4 9 kg/m eter (2) 133/85 mm[Hg] Chief Complaint And Reason For Visit From encounter dated '04/10/2016 13:15'. knee pain equally on both sides (chief complaint). Description: Dafne Carter is a 55 year old female. She presents with pain on the right and left side equally. She states that the symptoms havebeen acute non-traumatic and began 6 months ago. The problem is improving. Currently the patient states that the symptoms are mild-moderate. The pain is described as aching and discomforting. The patient is experiencing pain in the following location: anterior knee on the right and left side equally. She rates her current pain as 3/10. The pain does not radiate. The symptoms are aggravated by walking. Dafne Cornejo states that the symptoms are relieved by rest and physical therapy. In addition to knee pain equally on both sides the patient is also experiencing decreased mobility, pain after activity and stiffness. Pertinent negatives include weakness, tingling, bruising, clicking, decreased mobility and difficulty bending. She has stated that she is about 75% better. Patient would like visco injections.. Patient has stated that she has seen a lot of improvement from participating in physicaltherapy [facility] and doing bike. Weight loss with ofhtter doc. Sacenda? injection. Reason For Referral Reason For Referral No Information Plan Of Treatment Date Type Action Status Referral Ordered: [facility] (related to Obesity (BMI 30-39.9)) ordered Referral Referred To: [facility] [address] [place] [address]
[address] [place], [phone] Ordered: Referrals: UMANG BOB. Evaluate and treat ordered History Of Present Illness Encounter Date Complaint History Of Prese nt Illness knee pain equally on both sides Dafne Carter is a 55 year old female. She presents with pain on the right and left side equally. She states that the symptoms have been acute non-traumatic and began 6 months ago. The problem is improving. Currently the patient states that the symptoms are mild-moderate. The pain is described as aching and discomforting. The patient is experiencing pain in the following location: anterior knee on the right and left side equally. She rates her current pain as 3/10. The pain does not radiate. The symptoms are aggravated by walking. Dafne Cornejo states that the symptoms are relieved by rest and physical therapy. In addition to knee pain equally on both sides the patient is also experiencing decreased mobility, pain after activity and stiffness. Pertinent negatives include weakness, tingling, bruising, clicking, decreased mobility and difficulty bending. She has stated that she is about 75% better. Patient would like visco injections.. Patient has stated that she has seen a lot of improvement from participating in physical therapy [employer] and doing bike. Weight loss with ofhtter doc. Sacenda? injection. left knee pain Dafne han is a 54 year old female. She presents with pain on the left side. She states that the symptoms have been acute non-traumatic and began 2 months ago. Currently the patient states that the symptoms are mild-moderate. The pain is described as aching and discomforting. The patient is experiencing pain in the following location: medial knee on the left side. The pain does not radiate. The symptoms are aggravated by daily activities, walking and standing. Dafne Cornejo states that the symptoms are relieved by rest. In addition to left knee pain the patient is also experiencing stiffness, swelling, pain after activity, difficulty bending and limping. Pertinent negatives include bruising, clicking, popping, tingling, weakness and numbness. She has stated that she has had no prior injury.. Patient has stated that she had a hysterectomy September 2014 and since then she states that she has gained 20lbs. Patient believes that he could have contributed to pain in left knee Pain with flexion and stairs. No mechanical symptoms. Functional Status Date Functional Assessmen t No Information Instructions Date Instruction Additional Infor mation No Information Assessments Type Assessment Date assessment Primary osteoarthritis of both k nees assessment Obesity (BMI 30-39.9) 6 Mental Status Date Cognitive Assessment Orientation - Marshes Siding ed to time, place, person, situation. Patient Care Teams Name Effective Dates (start - stop) Status Members No Information
--- OUTSIDE RECORDS SUMMARY | 2025-02-18 08:52 | XMS_ITS | Clinical Summary ---
Author Organization [facility] at the [facility] Address [address] [place] [address] Care Team Providers Care Manufacturing Leader Name Role Phone Melisa Cannon MD [...] Colon Cancer Screening-Colonoscopy 1959 Depression Screening 1959 Fall Risk Assessment 1959 Hepatitis C Screening 1959 Osteoporosis Screening-Bone Density Scan 1959 DTaP/Tdap/Td Vaccine (1 - Tdap) 12/06/1970 Hepatitis B Screening 12/06/1977 Pneumococcal vaccine 65+ (1 of 1 - PCV) 12/06/2009 Zoster Vaccine (1 of 2) 12/06/2009 Well Visit 65+ 12/06/2024 Influenza Vaccine (#1) 2025 Insurance [address] [id number] [facility] CHOICE PLUS Care Teams Manufacturing Leader Relationship Specialty Start Date End Date Melisa Cannon MD [address] [place] [address] [address] PCP - General Family Medicine 02/15/24
[2025-02-18 15:23] LABS: Cholesterol 176 mg/dL (0-200); HDL Direct 65 mg/dL; Triglycerides 59 mg/dL (<150)
[2025-02-18 16:00] LABS: Thyroid Stimulating Hormone 1.730 uIU/mL (0.465-4.680)
[2025-02-18 16:18] LABS: Immunoglobulin G 1141 mg/dL (700-1600)
== END 2025-02-18 08:21 | disposition home or self-care (01) ==
LOC: ANHGOSHLAB 08:21
PROVIDERS: Nurse Practitioner Family; PCP Family Medicine; Visit Provider Student in an Organized Health Care Education/Training Program
DX: R74.01 Elevation of levels of liver transaminase levels (principal); R76.8 Other specified abnormal immunological findings in serum; R89.9 Unspecified abnormal finding in specimens from other organs, systems and tissues; I25.10 Atherosclerotic heart disease of native coronary artery without angina pectoris; E03.9 Hypothyroidism, unspecified
CPT/HCPCS: 36415; 80061; 82784; 84443

== ENCOUNTER 2025-03-12 08:10 | Outpatient (CLI) | payer MEDICARE, SELFPAY ==
[2025-03-12 11:16] LABS: Hematocrit 40.6 % (37.0-47.0); Hemoglobin 12.9 g/dL (12.0-15.0); Mean Corpuscular HGB Conc 31.8 g/dl (32-36); Mean Corpuscular Hemoglobin 29.5 pg (26-34); Mean Corpuscular Volume 92.9 fl (80-100); Platelet Count Result 276 k/mm3 (150-375); Red Blood Count 4.37 M/mm3 (4.2-5.4); White Blood Count 6.2 K/mm3 (4.5-10.0)
[2025-03-12 11:23] LABS: Alanine Aminotransferase 16 U/L (6-35); Albumin Level 4.1 g/dL (3.5-5.1); Alkaline Phosphatase 92 U/L (38-126); Anion Gap 8 mmol/L (4-12); Aspartate Amino Transferase 44 U/L (14-36); Bilirubin,Total 0.6 mg/dL (0.2-1.3); Blood Urea Nitrogen 8 mg/dL (7-17); Calcium 9.2 mg/dL (8.4-10.2); Carbon Dioxide 27 mmol/L (22-30); Chloride 105 mmol/L (98-107); Estimated Glomerular Filt Rate > 60; Glucose 75 mg/dL (65-110); Potassium 4.7 mmol/L (3.4-5.0); Sodium 140 mmol/L (137-145); Total Protein 7.4 g/dL (6.3-8.2)
[2025-03-12 11:33] LABS: Immunoglobulin G 1077 mg/dL (700-1600)
== END 2025-03-12 08:11 | disposition home or self-care (01) ==
LOC: ANHGOSHLAB 08:11
PROVIDERS: PCP Family Medicine; Visit Provider Nurse Practitioner Family
DX: R74.01 Elevation of levels of liver transaminase levels (principal); R94.5 Abnormal results of liver function studies; K76.0 Fatty (change of) liver, not elsewhere classified; R79.89 Other specified abnormal findings of blood chemistry
CPT/HCPCS: 36415; 80053; 82784; 85027